=== PATIENT | male | born 1935 | race Caucasian/White ===

== ENCOUNTER 2017-09-23 04:28 | Observation (INO) | payer OTHER ==
[2017-09-23] MEDS ORDERED: SODIUM CHLORIDE 0.9% 1000 ML INFUS.BAG IV ONE (04:41)
[2017-09-23 04:42] VITALS: BMI 29.2
--- NOTE | 2017-09-23 05:19 | PDOC ---
Attending Attestation - Resident Resident Name: Aidan Lea - ED Attending Attestation I have performed the following: I have examined & evaluated the patient, The case was reviewed & discussed with the resident, I agree w/resident's findings & plan - HPI HPI: 09/23/17 05:31 Pt comes with hypoglycemia. He also has hypothermia in the ER. - Physicial Exam PE: 09/23/17 06:58 Agree with resident exam - Medical Decision Making 09/23/17 06:58 Lbas pending. Consider admitting patient, as he lives on his own and he is weak , and blood sugar is low.
[2017-09-23 05:26] LABS: BASO % 0.2 % (0-2.0); EOS % 0.8 % (0-4.5); HEMATOCRIT 38.1 % (35.4-49); HEMOGLOBIN 13.1 GM/dL (11.7-16.9); LYMPH % 16.2 % (8-40); MCH 32.7 pg (25.7-33.7); MCHC 34.5 g/dl (32.0-35.9); MEAN CELL VOLUME 94.9 fl (80-96); MEAN PLT VOLUME 9.1 fl (7.5-11.1); MONO % 5.3 % (3.8-10.2); NEUT % 77.5 % (42.8-82.8); PLATELET COUNT 110 K/MM3 (134-434); RBC 4.02 M/mm3 (4.00-5.60); RDW 13.3 % (11.9-15.9); WHITE BLOOD COUNT 5.3 K/mm3 (4.0-10.0)
--- NOTE | 2017-09-23 05:30 | PDOC ---
History of Present Illness - General Chief Complaint: Blood Sugar Problem Stated Complaint: SUGAR PROBLEM Time Seen by Provider: 09/23/17 04:40 History Source: Patient, EMS Exam Limitations: No Limitations - History of Present Illness Initial Comments: 09/23/17 05:23 The patient is an 82M with a PMH of DM, HTN, HLD, hemorrhoids, CAD s/p 5 cardiac stents, pacemaker, who presents to the ER after having a near syncopal episode. The patient states that he was sleeping, got up to use the restroom, and on his return from the restroom, felt lightheaded. He also states he felt chest tightness, SOB, and nausea. He states that he laid down and the lightheadedness did not go away. He denies any current symptoms except for some mild nausea and lightheadedness. Past History - Past Medical History Allergies/Adverse Reactions: Allergies Allergy/AdvReac Type Severity Reaction Status Date / Time No Known Drug Allergies Allergy Verified 09/23/17 04:43 SEAFOOD Allergy Swelling Uncoded 09/23/17 04:43 Home Medications: Ambulatory Orders Meclizine HCl 25 mg PO PRN 07/09/16 Ranolazine [Ranexa -] 500 mg PO BID 07/09/16 Simvastatin [Zocor -] 10 mg PO HS 07/09/16 Tamsulosin HCl [Flomax] 0.4 mg PO DAILY 07/09/16 Insulin Detemir [Levemir Flextouch] 20 unit SQ BID #1 vial 07/13/16 Pantoprazole Sodium [Protonix -] 40 mg PO BID #60 tablet.ec 07/13/16 Anemia: No Asthma: No Cancer: No Cardiac Disorders: Yes (afib,ppm,cad) CVA: No COPD: No CHF: No DVT: No Dementia: No Diabetes: Yes (IDDM) GI Disorders: No Disorders: No HTN: Yes Hypercholesterolemia: Yes Liver Disease: No Seizures: No Thyroid Disease: No - Surgical History Abdominal Surgery: No Appendectomy: Yes Cardiac Surgery: Yes (PACEMAKER,CARDIAC STENTS X 5) Cholecystectomy: Yes Lung Surgery: No Orthopedic Surgery: Yes (spinal fusion) - Immunization History Immunization Up to Date: Yes - Suicide/Smoking/Psychosocial Hx Smoking Status: Yes Smoking History: Former smoker Have you smoked in the past 12 months: No Number of Cigarettes Smoked Daily: 0 If you are a former smoker, when did you quit?: 28 years ago Information on smoking cessation initiated: No Hx Alcohol Use: No Drug/Substance Use Hx: No Substance Use Type: None Hx Substance Use Treatment: No Review of Systems - Review of Systems Able to Perform ROS?: Yes Comments:: 09/23/17 05:31 GENERAL/CONSTITUTIONAL: No fever or chills. No weakness. HEAD, EYES, EARS, NOSE AND THROAT: No change in vision. No ear pain or discharge. No sore throat. CARDIOVASCULAR: Positive for chest tightness. No palpitations or lightheadedness. RESPIRATORY: Positive for shortness of breath. No cough, wheezing, or hemoptysis. GASTROINTESTINAL: Positive for nausea. No vomiting, diarrhea, constipation, or abdominal pain. GENITOURINARY: No dysuria, frequency, hematuria, or change in urination. MUSCULOSKELETAL: No joint or muscle swelling or pain. No neck or back pain. SKIN: No rash or lesions. NEUROLOGIC: Positive for lightheadedness and near syncope. No headache, numbness , tingling, weakness, loss of consciousness, or change in strength/sensation. ENDOCRINE: No increased thirst. No abnormal weight change. HEMATOLOGIC/LYMPHATIC: No anemia, easy bleeding, or history of blood clots. ALLERGIC/IMMUNOLOGIC: No hives or skin allergy. Is the patient limited [place] proficient: No *Physical Exam - Vital Signs Last Vital Signs Temp Pulse Resp BP Pulse Ox 96.6 F L 61 16 142/62 99 09/23/17 04:30 09/23/17 04:30 09/23/17 04:30 09/23/17 04:30 09/23/17 04:30 - Physical Exam Comments: 09/23/17 05:33 GENERAL: Well developed, well nourished. Awake and alert. No acute distress. Pt is slightly diaphoretic and cool to touch. HEENT: Normocephalic, atraumatic. Hearing grossly normal. Moist mucous membranes. PERRLA, EOMI. No conjunctival pallor. Sclera are non-icteric. NECK: Supple. Full ROM. No JVD. CARDIOVASCULAR: Regular rate and rhythm. No murmurs, rubs, or gallops. PULMONARY: No evidence of respiratory distress. Lungs clear to auscultation bilaterally. No wheezing, rales or rhonchi. ABDOMINAL: Soft. Non-tender. Non-distended. No rebound or guarding. MUSCULOSKELETAL: Normal range of motion at all joints. No bony deformities or tenderness. EXTREMITIES: No cyanosis. No clubbing. No edema. No calf tenderness. SKIN: Warm and dry. Normal capillary refill. No rashes. No jaundice. NEUROLOGICAL: Alert, awake, appropriate. Cranial nerves 2-12 intact. Normal speech. PSYCHIATRIC: Cooperative. Good eye contact. Appropriate mood and affect. Heart Score/ECG Review #1 ECG reviewed & interpreted by me at: 05:34 General ECG Interpretation: Sinus Rhythm, Normal Rate, Normal Intervals, No acute ischemic changes Compared to previous ECG there are: Other (QRS widening has increased) 09/23/17 05:34 Rate 60 UT 336 QRS 148 QTc 522 No acute ischemic changes noted. RBBB unchanged. LAFB unchanged. QRS widened ocmpared to previous EKG, 148 from 122. ED Treatment Course - LABORATORY CBC & Chemistry Diagram: 09/23/17 05:13 09/23/17 05:13 - RADIOLOGY Radiology Studies Ordered: Category Date Time Status CHEST X-RAY PORTABLE* [RAD] Stat Radiology 09/23/17 04:53 Ordered Medical Decision Making - Medical Decision Making 09/23/17 05:35 The patient is an 82M with an extensive PMH who presents to the ER after a near syncopal episode. Incoming vitals notable for BGL of 51 and rectal temp of 92.5. Actively rewarming patient. Septic protocol followed. Pending labs/imaging. 09/23/17 07:03 Pt signed out to Dr. Maher, day team. *DC/Admit/Observation/Transfer - Discharge Dispostion Condition at time of disposition: Fair - Referrals - Patient Instructions - Post Discharge Activity
[2017-09-23 05:54] LABS: INR 0.97 (0.82-1.09)
[2017-09-23 05:57] LABS: ACTIVATED PTT 27.2 SECONDS (26.9-34.4)
[2017-09-23 06:04] LABS: ALBUMIN 3.3 g/dl (3.4-5.0); ANION GAP 7 (8-16); BILIRUBIN,TOTAL 0.7 mg/dL (0.2-1.0); BLOOD UREA NITROGEN 19 mg/dL (7-18); CALCIUM 7.8 mg/dL (8.5-10.1); CHLORIDE 109 mmol/L (98-107); CO2 25 mmol/L (21-32); CREATININE 1.1 mg/dL (0.7-1.3); SGPT/ALT 16 U/L (12-78); SODIUM 141 mmol/L (136-145); TOT PROT 6.1 g/dl (6.4-8.2)
[2017-09-23 06:06] LABS: ALK PHOS 58 U/L (45-117)
[2017-09-23 06:07] LABS: POTASSIUM 3.7 mmol/L (3.5-5.1)
[2017-09-23 06:08] LABS: GLUCOSE,RANDOM 42 mg/dL (74-106); SGOT/AST 18 U/L (15-37)
--- NOTE | 2017-09-23 10:06 | PDOC ---
*Physical Exam - Vital Signs Last Vital Signs Temp Pulse Resp BP Pulse Ox 95.8 F L 60 18 130/58 99 09/23/17 09:01 09/23/17 09:01 09/23/17 09:01 09/23/17 09:01 09/23/17 09:01 ED Treatment Course - LABORATORY CBC & Chemistry Diagram: 09/23/17 05:13 09/23/17 05:13 - ADDITIONAL ORDERS Additional order review: Laboratory Results 09/23/17 09/23/17 09/23/17 08:00 07:29 05:13 PT with INR INR PTT (Actin FS) Sodium Potassium Chloride Carbon Dioxide Anion Gap BUN Creatinine Creat Clearance w eGFR POC Glucometer [phone] Random Glucose Lactic Acid 1.8 Calcium Total Bilirubin AST ALT Alkaline Phosphatase Creatine Kinase Troponin I Total Protein Albumin TSH 0.97 Blood Type Antibody Screen 09/23/17 09/23/17 09/23/17 05:13 05:13 04:55 PT with INR 11.00 INR 0.97 PTT (Actin FS) 27.2 Sodium 141 Potassium 3.7 Chloride 109 H Carbon Dioxide 25 Anion Gap 7 L BUN 19 H D Creatinine 1.1 D Creat Clearance w eGFR > 60 POC Glucometer Random Glucose 42 L* D Lactic Acid Calcium 7.8 L Total Bilirubin 0.7 D AST 18 D ALT 16 D Alkaline Phosphatase 58 Creatine Kinase 42 Troponin I < 0.02 Total Protein 6.1 L Albumin 3.3 L D TSH Blood Type O POSITIVE Antibody Screen Negative 09/23/17 09/23/17 07:29 05:13 RBC 4.02 D MCV 94.9 MCHC 34.5 RDW 13.3 MPV 9.1 Neutrophils % 77.5 Lymphocytes % 16.2 D Monocytes % 5.3 Eosinophils % 0.8 D Basophils % 0.2 POC Glucometer 124.69005 - Medications Given in the ED: ED Medications Discontinued Medications Generic Name Dose Route Start Last Admin Trade Name Freq PRN Reason Stop Dose Admin Sodium Chloride 1,000 ml 09/23/17 04:41 09/23/17 05:37 Normal Saline - IV 09/23/17 04:42 1,000 ml ONCE ONE Administration Medical Decision Making - Medical Decision Making 09/23/17 10:04 Patient admitted for hypoglycemia and hypothermia. Will give us urine on his own. Had meal of soup with croutons last night, no recent change in meds, is sure of doses. *DC/Admit/Observation/Transfer Diagnosis at time of Disposition: Hypoglycemia, Hypothermia not due to cold exposure - Discharge Dispostion Condition at time of disposition: Fair Admit: Yes - Referrals Referrals: Mateo Ohara MD [Primary Care Provider] - - Patient Instructions - Post Discharge Activity
[2017-09-23 11:17] LABS: URINE APPEARANCE CLEAR; URINE BILIRUBIN NEGATIVE (NEGATIVE); URINE BLOOD NEGATIVE (NEGATIVE); URINE COLOR YELLOW; URINE GLUCOSE (UA) 2+ (NEGATIVE); URINE KETONE NEGATIVE (NEGATIVE); URINE LEUK ESTERASE NEGATIVE (NEGATIVE); URINE NITRITE NEGATIVE (NEGATIVE); URINE PROTEIN NEGATIVE (NEGATIVE)
--- NOTE | 2017-09-23 11:19 | HP ---
Admitting History and Physical - Primary Care Physician PCP: Mateo Ohara - Admission Chief Complaint: dizziness History of Present Illness: This is an 82 year old male with pmhx of IDDM, HTN, HLD, and CAD s/p multiple cardiac caths and stents x3 (last 2013 at [facility]), GIB; duodunal ulcer with hemorrhage (2015) presented to the ED with hypothermia. The patient states he was in relatively normal state of health last night, ate some soup and coffee, not feeling the most hungry, read and went to sleep. He woke up around 1am to urinate and when he returned from the bathroom he started to feel dizzy. He normally would take a meclizine but he felt too unstable to get up. At this time he started to sweat and was clammy, he laid down but the dizziness worsened and he called his son and activated the alert necklace around his neck. He noted blurry vision and being lucid with his son, but doesn't recall the conversation. EMS noted pt temperature to be 92.5 with BGM of 51. Currently, denies sob, chest pain, abd pain, nausea, vomiting, fever, chills, cough. History Source: Patient, Medical Record Limitations to Obtaining History: No Limitations - Past Medical History Cardiovascular: Yes: CAD (s/p stents), HTN, Hyperlipdemia, [place] Gastrointestinal: Yes: GI Bleed, Hemorrhoids Endocrine: Yes: Diabetes Mellitus - Past Surgical History Past Surgical History: Yes: Appendectomy, Cholecystectomy, Stent, Upper Endoscopy - Smoking History Smoking history: Former smoker Have you smoked in the past 12 months: No Aproximately how many cigarettes per day: 0 If you are a former smoker, when did you quit?: 28 years ago - Alcohol/Substance Use Hx Alcohol Use: No - Social History Usual Living Arrangement: Yes: Alone ADL: Independent Home Medications - Allergies Allergies/Adverse Reactions: Allergies Allergy/AdvReac Type Severity Reaction Status Date / Time No Known Drug Allergies Allergy Verified 09/23/17 04:43 SEAFOOD Allergy Swelling Uncoded 09/23/17 04:43 - Home Medications Home Medications: Ambulatory Orders Meclizine HCl 25 mg PO TID PRN 07/09/16 Ranolazine [Ranexa -] 500 mg PO BID 07/09/16 Tamsulosin HCl [Flomax] 0.4 mg PO DAILY 07/09/16 Pantoprazole Sodium [Protonix -] 40 mg PO BID #60 tablet.ec 07/13/16 Aspirin [ASA -] 81 mg PO DAILY 09/23/17 Atorvastatin Ca [Lipitor] 10 mg PO HS 09/23/17 Insulin Glargine,Hum.rec.anlog [Toujeo Solostar] 50 unit SQ .PCDIN 09/23/17 Linagliptin [Tradjenta] 5 mg PO ACDIN 09/23/17 Losartan Potassium [Cozaar] 100 mg PO DAILY 09/23/17 Review of Systems - Review of Systems Constitutional: reports: Diaphoresis, Weakness Eyes: reports: Blurred Vision HENT: reports: No Symptoms Neck: reports: No Symptoms Cardiovascular: reports: No Symptoms Respiratory: reports: No Symptoms Gastrointestinal: reports: No Symptoms Genitourinary: reports: No Symptoms Musculoskeletal: reports: No Symptoms Integumentary: reports: No Symptoms Neurological: reports: Dizziness Endocrine: reports: No Symptoms Hematology/Lymphatic: reports: No Symptoms Psychiatric: reports: No Symptoms Physical Examination Vital Signs: Vital Signs Temperature 95.8 F L 09/23/17 09:01 Pulse Rate 60 09/23/17 09:01 Respiratory Rate 18 09/23/17 09:01 Blood Pressure 130/58 09/23/17 09:01 O2 Sat by Pulse Oximetry (%) 99 09/23/17 09:01 Constitutional: Yes: No Distress Eyes: Yes: Conjunctiva Clear HENT: Yes: Atraumatic Neck: Yes: Supple Cardiovascular: Yes: Regular Rate and Rhythm, S1, S2 Respiratory: Yes: Regular, CTA Bilaterally Gastrointestinal: Yes: Normal Bowel Sounds, Soft, Hernia (reproducible umbilical ) Renal/: Yes: WNL Musculoskeletal: Yes: WNL Extremities: Yes: WNL Edema: No Integumentary: Yes: Other (warm) Neurological: Yes: Alert, Oriented, Cran Nerves II-XII Intact Psychiatric: Yes: Alert, Oriented Labs: CBC, BMP 09/23/17 05:13 09/23/17 05:13 Imaging - Results Chest X-ray: Report Reviewed, Image Reviewed Problem List - Problems (1) Hypoglycemia Code(s): E16.2 - HYPOGLYCEMIA, UNSPECIFIED (2) Hypothermia not due to cold exposure Code(s): R68.0 - HYPOTHERMIA, NOT ASSOCIATED W LOW ENVIRONMENTAL TEMPERATURE (3) CAD (coronary artery disease) Code(s): I25.10 - ATHSCL HEART DISEASE OF [place] CORONARY ARTERY W/O ANG PCTRS (4) Diabetes Code(s): E11.9 - TYPE 2 DIABETES MELLITUS WITHOUT COMPLICATIONS Qualifiers: Diabetes mellitus type: type 2 (5) Hyperlipidemia Code(s): E78.5 - HYPERLIPIDEMIA, UNSPECIFIED (6) Hypertension Code(s): I10 - ESSENTIAL (PRIMARY) HYPERTENSION Assessment/Plan Assessment: 82 year old male presented with dizziness, hypothermia, hypoglycemia Plan: 1. Hypothermia - Unclear etiology - Possibly due to hypoglycemia - Improved with kenny hugger - Septic work up, cxr, ua negative - EKG unchanged - TSH wnl 2. DM II, hypoglycemia - Hypoglycemia resolved - Pt home insulin regime not on formulary - Give levemir 20mg BID - Dr. Ohara to see pt 3. HTN - Losartan 100mg 4. 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 Thrombocytopenia - Trend has been low in 2016 visits - Unclear etiology, however does take protonix BID, would recommend stopping or decreasing dose, also considering stopping meclizine for same reason 6. BPH - Flomax 7. DVT - SCDS, ambulate Visit type - Emergency Visit Emergency Visit: Yes ED Registration Date: 09/23/17 Care time: The patient presented to the Emergency Department on the above date and was hospitalized for further evaluation of their emergent condition. - New Patient This patient is new to me today: Yes Date on this admission: 09/23/17 - Critical Care Critical Care patient: Yes Total Critical Care Time (in minutes): 35 Critical Care Statement: The care of this patient involved high complexity decision making to prevent further life threatening deterioration of the patient 's condition and/or to evaluate & treat vital organ system(s) failure or risk of failure. Hospitalist Screening - Colonoscopy Questionnaire Colonoscopy Questionnaire: Colonoscopy Questionnaire - Patient: 50 - 75 years old and never had a screening colonoscopy: No History of colon or rectal polyps, or CA: No History of IBD, Crohn's disease or UC: No History of abdominal radiation therapy as a child: No - Relative: 1 with colon or rectal CA, or polyps at age 60 or younger: No Colon or rectal CA diagnosed at age 45 or younger: No Multiple relatives with colon or rectal CA: No - Outcome: Screening Result: Negative Screen
[2017-09-23] MEDS ORDERED: INSULIN (NOVOLOG) ASPART 100 UNITS/ML 10ML VIAL ONE (17:51)
[2017-09-23] MEDS: INSULIN SLIDING SCALE (NOVOLOG) 1 VIAL SQ SCH ×2 (17:53→21:48)
[2017-09-23] MEDS: INSULIN DETEMIR 100 UNITS/ML MDV SQ SCH (21:49)
[2017-09-23] MEDS: ATORVASTATIN CA 10 MG TABLET (FP) PO SCH (21:50)
[2017-09-23] MEDS: RANOLAZINE E.R. 500 MG TABLET (FP) PO SCH (21:50)
[2017-09-23] MEDS ORDERED: ATORVASTATIN CA 10 MG TABLET (FP) PO SCH (22:00)
[2017-09-23] MEDS ORDERED: INSULIN DETEMIR 100 UNITS/ML MDV SQ SCH (22:00)
[2017-09-24] MEDS: ACETAMINOPHEN 325 MG TABLET (FP) PO PRN ×3 (00:13→21:01)
[2017-09-24] MEDS: INSULIN DETEMIR 100 UNITS/ML MDV SQ SCH (07:22)
[2017-09-24] MEDS: INSULIN SLIDING SCALE (NOVOLOG) 1 VIAL SQ SCH ×4 (07:23→21:05)
[2017-09-24 07:36] LABS: BASO % 0.7 % (0-2.0); HEMATOCRIT 38.5 % (35.4-49); HEMOGLOBIN 13.1 GM/dL (11.7-16.9); LYMPH % 26.1 % (8-40); MCH 32.2 pg (25.7-33.7); MEAN CELL VOLUME 94.6 fl (80-96); MONO % 7.9 % (3.8-10.2); NEUT % 61.3 % (42.8-82.8); PLATELET COUNT 126 K/MM3 (134-434); RBC 4.07 M/mm3 (4.00-5.60); RDW 13.1 % (11.9-15.9); WHITE BLOOD COUNT 5.6 K/mm3 (4.0-10.0)
[2017-09-24 07:57] LABS: ANION GAP 5 (8-16); BLOOD UREA NITROGEN 18 mg/dL (7-18); CALCIUM 8.1 mg/dL (8.5-10.1); CHLORIDE 106 mmol/L (98-107); CO2 28 mmol/L (21-32); CREATININE 1.1 mg/dL (0.7-1.3); GLUCOSE,RANDOM 84 mg/dL (74-106); POTASSIUM 5.3 mmol/L (3.5-5.1); SODIUM 139 mmol/L (136-145)
[2017-09-24] MEDS: TAMSULOSIN HCL 0.4 MG CAP.ER.24H (FP) PO SCH (10:03)
[2017-09-24] MEDS: LOSARTAN POTASSIUM 50 MG TABLET (FP) PO SCH (10:03)
[2017-09-24] MEDS: RANOLAZINE E.R. 500 MG TABLET (FP) PO SCH ×2 (10:03→21:01)
--- NOTE | 2017-09-24 10:43 | PN ---
Progress Note, Physician Chief Complaint: patient came in for dizziness,hypoglycemia today BGM in 40"s in morning History of Present Illness: currently he is not dizzy, no CP ,no shortness of breath no blurry vision - Current Medication List Current Medications: Active Medications Acetaminophen (Tylenol -) 650 mg PO Q6H PRN PRN Reason: PAIN LEVEL 4 - 6 Last Admin: 09/24/17 00:13 Dose: 650 mg Atorvastatin Calcium (Lipitor -) 10 mg PO HS [facility] Last Admin: 09/23/17 21:50 Dose: 10 mg Insulin Aspart (Novolog Vial Sliding Scale -) 1 vial SQ ACHS [facility] PRN Reason: Protocol Last Admin: 09/24/17 07:23 Dose: Not Given Insulin Detemir (Levemir Vial) 20 units SQ BID@0700,2200 [facility] Last Admin: 09/24/17 07:22 Dose: Not Given Losartan Potassium (Cozaar -) 100 mg PO DAILY [facility] Last Admin: 09/24/17 10:03 Dose: 100 mg Ranolazine (Ranexa -) 500 mg PO BID [facility] Last Admin: 09/24/17 10:03 Dose: 500 mg Tamsulosin HCl (Flomax -) 0.4 mg PO DAILY [facility] Last Admin: 09/24/17 10:03 Dose: 0.4 mg - Objective Vital Signs: Vital Signs Temperature 97.8 F 09/24/17 06:09 Pulse Rate 64 09/24/17 06:09 Respiratory Rate 20 09/24/17 06:09 Blood Pressure 107/48 09/24/17 06:09 O2 Sat by Pulse Oximetry (%) 97 09/24/17 05:00 Constitutional: Yes: Calm Neck: Yes: Trachea Midline Cardiovascular: Yes: Regular Rate and Rhythm, S1, S2 Respiratory: Yes: CTA Bilaterally Gastrointestinal: Yes: Normal Bowel Sounds, Soft Edema: No Neurological: Yes: Alert, Oriented Labs: CBC, BMP 09/24/17 06:30 09/24/17 06:30 INR, PTT INR 0.97 (0.82-1.09) 09/23/17 05:13 Problem List - Problems (1) Hypoglycemia Assessment/Plan: insulin held sliding sclae for now will decrease the dose of levemir endocrine consult Code(s): E16.2 - HYPOGLYCEMIA, UNSPECIFIED (2) BPH (benign prostatic hyperplasia) Assessment/Plan: tamsulosin Code(s): N40.0 - BENIGN PROSTATIC HYPERPLASIA WITHOUT LOWER URINRY TRACT SYMP (3) CAD (coronary artery disease) Assessment/Plan: lipitor ranexa aspirin Code(s): I25.10 - ATHSCL HEART DISEASE OF [place] CORONARY ARTERY W/O ANG PCTRS (4) Diabetes Assessment/Plan: check [id number] levemir held for now Code(s): E11.9 - TYPE 2 DIABETES MELLITUS WITHOUT COMPLICATIONS Qualifiers: Diabetes mellitus type: type 2 (5) Hyperlipidemia Assessment/Plan: statin lipid panel Code(s): E78.5 - HYPERLIPIDEMIA, UNSPECIFIED (6) Thrombocytopenia Assessment/Plan: trend platelet Code(s): D69.6 - THROMBOCYTOPENIA, UNSPECIFIED
[2017-09-24] MEDS ORDERED: INSULIN (NOVOLOG) ASPART 100 UNITS/ML 10ML VIAL ONE ×2 (11:26→21:01)
[2017-09-24] MEDS: ATORVASTATIN CA 10 MG TABLET (FP) PO SCH (21:01)
--- NOTE | 2017-09-24 22:52 | CONSULT ---
Consult Consult Specialty:: endocrine Referred by:: chin Reason for Consultation:: diabetes mellitus/ hypoglycemia - History of Present Illness Chief Complaint: low blood sugar History of Present Illness: 82 year old male with pmhx of IDDM, HTN, HLD, and CAD s/p multiple cardiac caths and stents x3 (last 2013 at [facility]), GIB; duodunal ulcer with hemorrhage (2015) presented to the ED with hypothermia. The patient states he was in relatively normal state of health last night, ate some soup and coffee, not feeling the most hungry, read and went to sleep. He woke up around 1am to urinate and when he returned from the bathroom he started to feel dizzy. was unable to sit up in bed and fell down in bed called ems for help;brought to [facility] for help found to have blood sugar below 50mg/dl. with d50 his sugar improved and he felt better. - History Source History Provided By: Patient - Past Medical History Cardio/Vascular: Yes: CAD (s/p stents), HTN, Hyperlipdemia, [place] Gastrointestinal: Yes: GI Bleed, Hemorrhoids Endocrine: Yes: Diabetes Mellitus - Past Surgical History Past Surgical History: Yes: Appendectomy, Cholecystectomy, Stent, Upper Endoscopy - Alcohol/Substance Use Hx Alcohol Use: No - Smoking History Smoking history: Former smoker Have you smoked in the past 12 months: No Aproximately how many cigarettes per day: 0 If you are a former smoker, when did you quit?: 28 years ago - Social History ADL: Independent Home Medications - Allergies Allergies/Adverse Reactions: Allergies Allergy/AdvReac Type Severity Reaction Status Date / Time No Known Drug Allergies Allergy Verified 09/23/17 04:43 SEAFOOD Allergy Severe Swelling Uncoded 09/23/17 17:57 - Home Medications Home Medications: Ambulatory Orders Meclizine HCl 25 mg PO TID PRN 07/09/16 Ranolazine [Ranexa -] 500 mg PO BID 07/09/16 Tamsulosin HCl [Flomax] 0.4 mg PO DAILY 07/09/16 Pantoprazole Sodium [Protonix -] 40 mg PO BID #60 tablet.ec 07/13/16 Aspirin [ASA -] 81 mg PO DAILY 09/23/17 Atorvastatin Ca [Lipitor] 10 mg PO HS 09/23/17 Insulin Glargine,Hum.rec.anlog [Toujeo Solostar] 50 unit SQ .PCDIN 09/23/17 Linagliptin [Tradjenta] 5 mg PO ACDIN 09/23/17 Losartan Potassium [Cozaar] 100 mg PO DAILY 09/23/17 Review of Systems - Review of Systems Constitutional: reports: No Symptoms Eyes: reports: No Symptoms HENT: reports: No Symptoms Neck: reports: No Symptoms Cardiovascular: reports: No Symptoms Respiratory: reports: Exercise Intolerance Gastrointestinal: reports: No Symptoms Genitourinary: reports: No Symptoms, Testicular Pain Musculoskeletal: reports: No Symptoms Integumentary: reports: No Symptoms Neurological: reports: Weakness Endocrine: reports: Unexplained Weight Gain Physical Exam Vital Signs: Vital Signs Temperature 98.0 F 09/24/17 22:00 Pulse Rate 62 09/24/17 22:00 Respiratory Rate 18 09/24/17 22:00 Blood Pressure 140/72 09/24/17 22:00 O2 Sat by Pulse Oximetry (%) 97 09/24/17 21:00 Constitutional: Yes: Calm Eyes: Yes: EOM Intact HENT: Yes: Normocephalic Neck: Yes: Trachea Midline Cardiovascular: Yes: Regular Rate and Rhythm Respiratory: Yes: CTA Bilaterally Gastrointestinal: Yes: Normal Bowel Sounds ...Rectal Exam: Yes: Deferred Renal/: Yes: WNL Breast(s): Yes: WNL Musculoskeletal: Yes: WNL Extremities: Yes: WNL Neurological: Yes: Alert, Oriented Labs: CBC, BMP 09/24/17 06:30 09/24/17 06:30 Problem List - Problems (1) 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 Code(s): E11.311 - TYPE 2 DIABETES W UNSP DIABETIC RETINOPATHY W MACULAR EDEMA (2) Hypoglycemia Code(s): E16.2 - HYPOGLYCEMIA, UNSPECIFIED (3) BPH (benign prostatic hyperplasia) Code(s): N40.0 - BENIGN PROSTATIC HYPERPLASIA WITHOUT LOWER URINRY TRACT SYMP (4) CAD (coronary artery disease) Code(s): I25.10 - ATHSCL HEART DISEASE OF [place] CORONARY ARTERY W/O ANG PCTRS Assessment/Plan Current Active Problems Hypoglycemia (Acute) Hypothermia not due to cold exposure (Acute) Thrombocytopenia (Acute) diabetes mellitus ckd htn ashd cad Abnormal Lab Results 09/24/17 09/24/17 09/24/17 06:30 06:30 10:50 Plt Count 126 L Potassium 5.3 H D Anion Gap 5 L Hemoglobin A1c % 8.3 H D Calcium 8.1 L Laboratory Results - last 24 hr 09/24/17 09/24/17 09/24/17 05:45 06:30 06:30 WBC 5.6 RBC 4.07 Hgb 13.1 Hct 38.5 MCV 94.6 MCH 32.2 MCHC 34.0 RDW 13.1 Plt Count 126 L MPV 9.0 Neutrophils % 61.3 D Lymphocytes % 26.1 D Monocytes % 7.9 Eosinophils % 4.0 D Basophils % 0.7 D Sodium 139 Potassium 5.3 H D Chloride 106 Carbon Dioxide 28 Anion Gap 5 L BUN 18 Creatinine 1.1 POC Glucometer 49 Random Glucose 84 D Hemoglobin A1c % Calcium 8.1 L 09/24/17 09/24/17 09/24/17 10:50 11:22 17:36 WBC RBC Hgb Hct MCV MCH MCHC RDW Plt Count MPV Neutrophils % Lymphocytes % Monocytes % Eosinophils % Basophils % Sodium Potassium Chloride Carbon Dioxide Anion Gap BUN Creatinine POC Glucometer 92 189 Random Glucose Hemoglobin A1c % 8.3 H D Calcium 09/24/17 21:05 WBC RBC Hgb Hct MCV MCH MCHC RDW Plt Count MPV Neutrophils % Lymphocytes % Monocytes % Eosinophils % Basophils % Sodium Potassium Chloride Carbon Dioxide Anion Gap BUN Creatinine POC Glucometer 231 Random Glucose Hemoglobin A1c % Calcium Laboratory Tests 09/24/17 09/24/17 09/24/17 05:45 11:22 17:36 POC Glucometer 49 92 189 09/24/17 21:05 POC Glucometer 231 plan: bgm ac hs novolog insullin levemir 20 units am follow up in offic 5-7 days nutrition consult
[2017-09-25] MEDS: INSULIN SLIDING SCALE (NOVOLOG) 1 VIAL SQ SCH (06:14)
[2017-09-25] MEDS ORDERED: INSULIN DETEMIR 100 UNITS/ML MDV SQ SCH ×2 (07:00)
[2017-09-25 07:54] LABS: BASO % 0.9 % (0-2.0); EOS % 5.1 % (0-4.5); HEMOGLOBIN 13.2 GM/dL (11.7-16.9); LYMPH % 28.8 % (8-40); MCH 31.6 pg (25.7-33.7); MCHC 33.8 g/dl (32.0-35.9); MEAN CELL VOLUME 93.5 fl (80-96); MEAN PLT VOLUME 8.7 fl (7.5-11.1); MONO % 9.4 % (3.8-10.2); NEUT % 55.8 % (42.8-82.8); PLATELET COUNT 129 K/MM3 (134-434); RBC 4.17 M/mm3 (4.00-5.60); WHITE BLOOD COUNT 5.1 K/mm3 (4.0-10.0)
[2017-09-25 08:26] LABS: ALBUMIN 3.2 g/dl (3.4-5.0); ALK PHOS 56 U/L (45-117); ANION GAP 6 (8-16); BILIRUBIN,TOTAL 1.3 mg/dL (0.2-1.0); BLOOD UREA NITROGEN 25 mg/dL (7-18); CALCIUM 8.4 mg/dL (8.5-10.1); CHLORIDE 105 mmol/L (98-107); CHOLESTEROL 118 mg/dL (50-200); CO2 27 mmol/L (21-32); CREATININE 1.3 mg/dL (0.7-1.3); GLUCOSE,RANDOM 119 mg/dL (74-106); POTASSIUM 5.1 mmol/L (3.5-5.1); SGOT/AST 11 U/L (15-37); SGPT/ALT 14 U/L (12-78); SODIUM 138 mmol/L (136-145); TRIGLYCERIDES 113 mg/dL (35-160)
[2017-09-25 08:27] LABS: HDL CHOLESTEROL 38 mg/dL (40-60); LDL CHOLESTEROL (ONLY SJRH) 69 mg/dL (5-100)
--- NOTE | 2017-09-25 08:36 | DS ---
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 The patient states he was in relatively normal state of health last night, ate some soup and coffee, not feeling the most hungry, read and went to sleep. He woke up around 1am to urinate and when he returned from the bathroom he started to feel dizzy. He normally would take a meclizine but he felt too unstable to get up. At this time he started to sweat and was clammy, he laid down but the dizziness worsened and he called his son and activated the alert necklace around his neck. He noted blurry vision and being lucid with his son, but doesn't recall the conversation. EMS noted pt temperature to be 92.5 with BGM of 51. Currently, denies sob, chest pain, abd pain, nausea, vomiting, fever, chills, cough. History Source: Patient, Medical Record Limitations to Obtaining History: No Limitations - Past Medical History Cardiovascular: Yes: CAD (s/p stents), HTN, Hyperlipdemia, [place] Gastrointestinal: Yes: GI Bleed, Hemorrhoids Endocrine: Yes: Diabetes Mellitus - Past Surgical History Past Surgical History: Yes: Appendectomy, Cholecystectomy, Stent, Upper Endoscopy - Smoking History Smoking history: Former smoker - Problems (1) Hypoglycemia Assessment/Plan: insulin on levemir 25 sliding scale for now endocrine consult Code(s): E16.2 - HYPOGLYCEMIA, UNSPECIFIED (2) BPH (benign prostatic hyperplasia) Assessment/Plan: tamsulosin Code(s): N40.0 - BENIGN PROSTATIC HYPERPLASIA WITHOUT LOWER URINRY TRACT SYMP (3) CAD (coronary artery disease) Assessment/Plan: lipitor ranexa aspirin Code(s): I25.10 - ATHSCL HEART DISEASE OF [place] CORONARY ARTERY W/O ANG PCTRS (4) Diabetes Assessment/Plan: check hgba1c levemir held for now Code(s): E11.9 - TYPE 2 DIABETES MELLITUS WITHOUT COMPLICATIONS Qualifiers: Diabetes mellitus type: type 2 (5) Hyperlipidemia Assessment/Plan: statin lipid panel Code(s): E78.5 - HYPERLIPIDEMIA, UNSPECIFIED (6) Thrombocytopenia Assessment/Plan: trend platelet Code(s): D69.6 - THROMBOCYTOPENIA, UNSPECIFIED Condition: Stable - Instructions Diet, Activity, Other Instructions: FOLLOW INSULIN INSTRUCTION DIRECTED BY DR SOTO INSTRUCTIONS REPEAT LABS IN OFFICE NEXT WEEK Referrals: Mateo Soto MD [Primary Care Provider] - 1 Week Disposition: HOME - Home Medications Comprehensive Discharge Medication List: Ambulatory Orders Meclizine HCl 25 mg PO TID PRN 07/09/16 Ranolazine [Ranexa -] 500 mg PO BID 07/09/16 Tamsulosin HCl [Flomax] 0.4 mg PO DAILY 07/09/16 Pantoprazole Sodium [Protonix -] 40 mg PO BID #60 tablet.ec 07/13/16 Aspirin [ASA -] 81 mg PO DAILY 09/23/17 Atorvastatin Ca [Lipitor] 10 mg PO HS 09/23/17 Insulin Glargine,Hum.rec.anlog [Toujeo Solostar] 25 unit SQ .PCDIN 09/23/17 Losartan Potassium [Cozaar] 100 mg PO DAILY 09/23/17
[2017-09-25] MEDS: TAMSULOSIN HCL 0.4 MG CAP.ER.24H (FP) PO SCH (09:09)
[2017-09-25] MEDS: LOSARTAN POTASSIUM 50 MG TABLET (FP) PO SCH (09:10)
[2017-09-25] MEDS: RANOLAZINE E.R. 500 MG TABLET (FP) PO SCH (09:10)
[2017-09-25 10:59] VITALS: BP 123/60; PULSE 63; TEMP 97.5
== END 2017-09-25 10:24 | disposition home or self-care (01) ==
LOC: JER 04:28 → JERBED 10:06 → INTOOBSV 10:06 → UNDOADMOB 10:06 → JERBED 11:38 → J8W 12:28
PROVIDERS: ADMIT Internal Medicine; ATTEND Family Medicine
PROC: 3E013VG Introduction of Insulin into Subcutaneous Tissue, Percutaneous Approach (ICD-10-PCS; principal; 2017-09-23)
PROC: 3E0337Z Introduction of Electrolytic and Water Balance Substance into Peripheral Vein, Percutaneous Approach (ICD-10-PCS; 2017-09-23)
DX: E11.649 Type 2 diabetes mellitus with hypoglycemia without coma (principal); R68.0 Hypothermia, not associated with low environmental temperature; E11.311 Type 2 diabetes mellitus with unspecified diabetic retinopathy with macular edema; Z79.4 Long term (current) use of insulin; I10 Essential (primary) hypertension; I25.2 Old myocardial infarction; I25.10 Atherosclerotic heart disease of native coronary artery without angina pectoris; E78.5 Hyperlipidemia, unspecified; K64.8 Other hemorrhoids; D69.6 Thrombocytopenia, unspecified; Z95.5 Presence of coronary angioplasty implant and graft; Z95.0 Presence of cardiac pacemaker; N40.0 Benign prostatic hyperplasia without lower urinary tract symptoms; Z91.013 Allergy to seafood; Z87.891 Personal history of nicotine dependence; Z98.1 Arthrodesis status
CPT/HCPCS: 36415; 70450-TC; 71045-TC-FY; 80048; 80053; 80061; 81003; 82550; 82962; 83036; 83605; 83721; 84443; 84484; 85025; 85610; 85730; 86850; 86900; 86901; 87040; 87086; 96372; 99285-25; G0378

== ENCOUNTER 2018-05-20 08:56 | Inpatient (IN) | payer OTHER, MEDICARE ==
[2018-05-20 09:09] VITALS: BMI 30.4
[2018-05-20] MEDS ORDERED: ONDANSETRON *ODT* 4 MG TABLET ONE (09:11)
[2018-05-20] MEDS ORDERED: ASPIRIN 81 MG CHEWABLE TABLETS PO ONE (09:26)
--- NOTE | 2018-05-20 09:30 | PDOC ---
History of Present Illness - History of Present Illness Initial Comments: The patient is an 82M with a PMH of DM, HTN, HLD, hemorrhoids, CAD s/p 5 cardiac stents, pacemaker, who was BIBA and presents with the ER for chest pain. Patient states that he woke up around 5am feeling fine, he started to make breakfast and began feeling nauseous, weak, and clammy. He also reports feeling short of breath, and disoriented. He states that he took 1 nitroglycerin tablet with pain relief. Patient states that he called 911 and EMS gave him 4m of zofran w/ relief. Patient states that this chest pain feels like his prior cardiac issues. Patient states that he is on a baby aspirin but doesnt take any other blood thinners. PCP: Mateo Ohara Social Hx: Denies any cigarette use, drinks socially. Denies any palpitations, shock from pacemaker, fever, chills, diarrhea, recent illness. <Catarina Giles - Last Filed: 05/20/18 10:03> - General History Source: Patient Exam Limitations: No Limitations <Artem Tilley - Last Filed: 05/20/18 11:02> - General Chief Complaint: Chest Pain Stated Complaint: CHEST PAIN Time Seen by Provider: 05/20/18 09:11 Past History <Catarina Giles - Last Filed: 05/20/18 10:03> - Past Medical History Anemia: No Asthma: No Cancer: No Cardiac Disorders: Yes (afib,ppm,cad) CVA: No COPD: No CHF: No DVT: No Dementia: No Diabetes: Yes (IDDM) GI Disorders: No Disorders: No HTN: Yes Hypercholesterolemia: Yes Liver Disease: No Seizures: No Thyroid Disease: No - Surgical History Abdominal Surgery: No Appendectomy: Yes Cardiac Surgery: Yes (PACEMAKER,CARDIAC STENTS X 5) Cholecystectomy: Yes Lung Surgery: No Orthopedic Surgery: Yes (spinal fusion) - Immunization History Immunization Up to Date: Yes - Suicide/Smoking/Psychosocial Hx Smoking Status: Yes Smoking History: Former smoker Have you smoked in the past 12 months: No Number of Cigarettes Smoked Daily: 0 If you are a former smoker, when did you quit?: 28 years ago Information on smoking cessation initiated: No Hx Alcohol Use: No Drug/Substance Use Hx: No Substance Use Type: None Hx Substance Use Treatment: No <Artem Tilley - Last Filed: 05/20/18 11:02> - Past Medical History Allergies/Adverse Reactions: Allergies Allergy/AdvReac Type Severity Reaction Status Date / Time No Known Drug Allergies Allergy Verified 05/20/18 09:06 SEAFOOD Allergy Severe Swelling Uncoded 05/20/18 09:06 Home Medications: Ambulatory Orders RX: Meclizine HCl 25 mg PO TID PRN 07/09/16 RX: Ranolazine [Ranexa -] 500 mg PO BID 07/09/16 RX: Tamsulosin HCl [Flomax] 0.4 mg PO DAILY 07/09/16 RX: Pantoprazole Sodium [Protonix -] 40 mg PO BID #60 tablet.ec 07/13/16 RX: Aspirin [ASA -] 81 mg PO DAILY 09/23/17 RX: Atorvastatin Ca [Lipitor] 10 mg PO DAILY 09/23/17 RX: Losartan Potassium [Cozaar] 100 mg PO DAILY 09/23/17 Insulin Glargine,Hum.rec.anlog [Toujeo Solostar] 40 unit SQ DAILY 05/20/18 Insulin Lispro [Humalog] 8 unit SQ 1900 05/20/18 Linagliptin [Tradjenta] 5 mg PO 1800 05/20/18 Review of Systems - Review of Systems Comments:: GENERAL/CONSTITUTIONAL: No fever or chills. +weakness.+ diaphoretic +disoriented HEAD, EYES, EARS, NOSE AND THROAT: No change in vision. No ear pain or discharge. No sore throat. CARDIOVASCULAR: +chest pain, +shortness of breath. RESPIRATORY: No cough, wheezing, or hemoptysis. GASTROINTESTINAL: +nausea, no vomiting, diarrhea or constipation. GENITOURINARY: No dysuria, frequency, or change in urination. MUSCULOSKELETAL: No joint or muscle swelling or pain. No neck or back pain. SKIN: No rash NEUROLOGIC: No headache, loss of consciousness, or change in strength/sensation. ENDOCRINE: No increased thirst. No abnormal weight change. HEMATOLOGIC/LYMPHATIC: No anemia, easy bleeding, or history of blood clots. ALLERGIC/IMMUNOLOGIC: No hives or skin allergy. <Catarina Giles - Last Filed: 05/20/18 10:03> *Physical Exam - Vital Signs Last Vital Signs Temp Pulse Resp BP Pulse Ox 97 F L 16 L 60 H 135/67 97 05/20/18 09:06 05/20/18 09:06 05/20/18 09:06 05/20/18 09:06 05/20/18 09:06 - Physical Exam Comments: GENERAL: Awake, alert, and fully oriented, in no acute distress HEAD: No signs of trauma EYES: PERRLA, EOMI, sclera anicteric, conjunctiva clear LUNGS: Breath sounds equal, clear to auscultation bilaterally. No wheezes, and no crackles HEART: Pacemaker on left side. Regular rate and rhythm, normal S1 and S2, no murmurs, rubs or gallops ABDOMEN: Soft, nontender. No guarding, no rebound. No masses EXTREMITIES: Normal range of motion, no edema. No clubbing or cyanosis. No cords, erythema, or tenderness NEUROLOGICAL: Cranial nerves II through XII grossly intact. Normal speech. SKIN: Warm, Dry, normal turgor, no rashes or lesions noted. <Catarina Giles - Last Filed: 05/20/18 10:03> - Vital Signs Last Vital Signs Temp Pulse Resp BP Pulse Ox 97 F L 16 L 60 H 135/67 97 05/20/18 09:06 05/20/18 09:06 05/20/18 09:06 05/20/18 09:06 05/20/18 09:06 <Artem Tilley - Last Filed: 05/20/18 11:02> Heart Score/ECG Review - History History: Highly suspicious - Electrocardiogram EKG: Non specific repolarization disturbance - Age Age: >/= 65 - Risk Factors Based on the list above the patient has:: >/=3 risk factors or Hx atherosclerotic disease - Troponin Troponin: </= normal limit - Score Heart Score - Total: 7 #1 ECG reviewed & interpreted by me at: 09:10 05/20/18 09:29 atrial-paced 60 with prolonged AV conduction, RBBB, LAFB, QTC 448 msec, no std/ [place]. <Artem Tilley - Last Filed: 05/20/18 11:02> ED Treatment Course - LABORATORY CBC & Chemistry Diagram: 05/20/18 10:00 05/20/18 10:00 <Artem Tilley - Last Filed: 05/20/18 11:02> Medical Decision Making - Medical Decision Making 05/20/18 09:27 A portion of this note was documented by scribe services under my direction. I have reviewed the details of the note, within reason, and agree with the documentation with the following case summary and management plan written by me. Patient treated in the ED. Nursing notes are reviewed and incorporated into the medical decision-making. Vital signs reviewed. Peripheral IV access obtained by the nurse, laboratory studies are drawn and sent, reviewed and interpreted by myself. Vital Signs Temp Pulse Resp BP Pulse Ox 97 F L 16 L 60 H 135/67 97 05/20/18 09:06 05/20/18 09:06 05/20/18 09:06 05/20/18 09:06 05/20/18 09:06 82-year-old male with past medical history of hypertension, diabetes, hyperlipidemia, coronary disease status post multiple stents, pacemaker presents to the emergency department for chest tightness. The patient reports waking up early this morning in his usual state health. While cooking breakfast , he suddenly developed clamminess, diaphoresis, nausea, chest tightness with associated shortness of breath. The patient had taken a nitroglycerin was significantly relieved his chest pain. Stated his nausea was relieved after EMS gave him Zofran. Denies recent illnesses, fevers, chills, cough, diarrhea, dysuria. Patient reports that this pain feels like his prior acute heart conditions. Side note, Pulse is 60 and RR is 16 (triage VS input incorrectly) Patient's findings are concerning for acute coronary syndrome. We'll give patient a full aspirin. Labs: Troponin, chest x-ray. Patient's chest pain currently 0. We'll need to admit to the hospital for rule out myocardial infarction. 05/20/18 11:00 CBC, BMP 05/20/18 10:00 05/20/18 10:00 CMP Sodium 138 mmol/L (136-145) 05/20/18 10:00 Potassium 4.6 mmol/L (3.5-5.1) 05/20/18 10:00 Chloride 105 mmol/L (98-107) 05/20/18 10:00 Carbon Dioxide 29 mmol/L (21-32) 05/20/18 10:00 Anion Gap 5 MMOL/L (8-16) L 05/20/18 10:00 BUN 21 mg/dL (7-18) H 05/20/18 10:00 Creatinine 1.1 mg/dL (0.55-1.3) 05/20/18 10:00 Creat Clearance w eGFR > 60 (>60) 05/20/18 10:00 Random Glucose 174 mg/dL (74-106) H 05/20/18 10:00 Calcium 8.6 mg/dL (8.5-10.1) 05/20/18 10:00 Magnesium 2.1 mg/dL (1.8-2.4) 05/20/18 10:00 Total Bilirubin 1.3 mg/dL (0.2-1) H 05/20/18 10:00 AST 10 U/L (15-37) L 05/20/18 10:00 ALT 20 U/L (13-61) 05/20/18 10:00 Alkaline Phosphatase 73 U/L (45-117) 05/20/18 10:00 Creatine Kinase 26 IU/L (26-308) 05/20/18 10:00 Troponin I < 0.02 ng/ml (0.00-0.05) 05/20/18 10:00 Total Protein 6.2 g/dl (6.4-8.2) L 05/20/18 10:00 Albumin 3.4 g/dl (3.4-5.0) 05/20/18 10:00 Lipase 74 U/L (73-393) 05/20/18 10:00 Trop negative. Heart score: 7. Case discussed with Dr. Barr Accepts to tele admission. Requests Dr. Garcia for cardiology. <Artem Tilley - Last Filed: 05/20/18 11:02> *DC/Admit/Observation/Transfer - Attestations Scribe Attestion: 05/20/18 10:07 Documentation prepared by Catarina Giles, acting as medical screener for Artem Tilley MD. <Catarina Giles - Last Filed: 05/20/18 10:03> - Discharge Dispostion Decision to Admit order: Yes <Artem Tilley - Last Filed: 05/20/18 11:02> Diagnosis at time of Disposition: Chest pain Qualifiers: Chest pain type: unspecified Qualified Code(s): R07.9 - Chest pain, unspecified - Discharge Dispostion Condition at time of disposition: Stable - Referrals Referrals: Mateo Ohara MD [Primary Care Provider] - - Patient Instructions - Post Discharge Activity
[2018-05-20] MEDS ORDERED: ASPIRIN 325 MG TABLET ONE (09:47)
[2018-05-20 10:14] LABS: BASO % 0.4 % (0-2.0); EOS % 2.2 % (0-4.5); HEMATOCRIT 38.2 % (35.4-49); HEMOGLOBIN 13.3 GM/dL (11.7-16.9); LYMPH % 14.5 % (8-40); MCH 32.5 pg (25.7-33.7); MCHC 34.7 g/dl (32.0-35.9); MEAN CELL VOLUME 93.5 fl (80-96); MEAN PLT VOLUME 9.1 fl (7.5-11.1); MONO % 6.1 % (3.8-10.2); NEUT % 76.8 % (42.8-82.8); PLATELET COUNT 127 K/MM3 (134-434); RBC 4.09 M/mm3 (4.00-5.60); RDW 13.3 % (11.9-15.9); WHITE BLOOD COUNT 6.5 K/mm3 (4.0-10.0)
[2018-05-20 10:28] LABS: INR 0.98 (0.83-1.09); PROTHROMBIN TIME (PATIENT) 11.6 SEC (9.7-13.0)
[2018-05-20 10:31] LABS: ACTIVATED PTT 24.5 SECONDS (25.2-36.5)
[2018-05-20 10:46] LABS: ALBUMIN 3.4 g/dl (3.4-5.0); ALK PHOS 73 U/L (45-117); ANION GAP 5 MMOL/L (8-16); BILIRUBIN,TOTAL 1.3 mg/dL (0.2-1); BLOOD UREA NITROGEN 21 mg/dL (7-18); CALCIUM 8.6 mg/dL (8.5-10.1); CHLORIDE 105 mmol/L (98-107); CO2 29 mmol/L (21-32); CREATININE 1.1 mg/dL (0.55-1.3); GLUCOSE,RANDOM 174 mg/dL (74-106); LIPASE 74 U/L (73-393); MAGNESIUM 2.1 mg/dL (1.8-2.4); POTASSIUM 4.6 mmol/L (3.5-5.1); SGOT/AST 10 U/L (15-37); SGPT/ALT 20 U/L (13-61); SODIUM 138 mmol/L (136-145); TOT PROT 6.2 g/dl (6.4-8.2)
--- NOTE | 2018-05-20 12:59 | HP ---
Admitting History and Physical - Primary Care Physician PCP: Mateo Ohara - Admission Chief Complaint: chest pressure and nausea History of Present Illness: The patient is an 82M with a PMH of DM, HTN, HLD, hemorrhoids, CAD s/p 5 cardiac stents, pacemaker, who was BIBA and presents with the ER for chest pain. Patient states that he woke up around 5am feeling fine, he started to make breakfast and began feeling nauseous, weak, and clammy. He also reports feeling short of breath, and disoriented. He states that he took 1 nitroglycerin tablet with substantial but not complete pain relief. Patient states that he called 911 and EMS gave him 4m of zofran w/ relief. Patient states that this chest pain feels like his prior cardiac issues. Patient states that he is on a baby aspirin but doesnt take any other blood thinners. per patient he says that chest pressure did not radiate, he fellt nauseous,clammy and very weak. currently in ER he has no chest discomfort no nausea no palpitations he got aspirin in ER first set CE was negative ekg paced History Source: Patient, Medical Record - Past Medical History Cardiovascular: Yes: CAD (s/p stents), HTN, Hyperlipdemia, [place] Gastrointestinal: Yes: GI Bleed, Hemorrhoids Endocrine: Yes: Diabetes Mellitus - Past Surgical History Past Surgical History: Yes: Appendectomy, Cholecystectomy, Stent, Upper Endoscopy - Smoking History Smoking history: Former smoker Have you smoked in the past 12 months: No Aproximately how many cigarettes per day: 0 If you are a former smoker, when did you quit?: 28 years ago - Alcohol/Substance Use Hx Alcohol Use: No - Social History ADL: Independent Home Medications - Allergies Allergies/Adverse Reactions: Allergies Allergy/AdvReac Type Severity Reaction Status Date / Time No Known Drug Allergies Allergy Verified 05/20/18 09:06 SEAFOOD Allergy Severe Swelling Uncoded 05/20/18 09:06 - Home Medications Home Medications: Ambulatory Orders Meclizine HCl 25 mg PO TID PRN 07/09/16 Ranolazine [Ranexa -] 500 mg PO BID 07/09/16 Tamsulosin HCl [Flomax] 0.4 mg PO DAILY 07/09/16 Pantoprazole Sodium [Protonix -] 40 mg PO BID #60 tablet.ec 07/13/16 Aspirin [ASA -] 81 mg PO DAILY 09/23/17 Atorvastatin Ca [Lipitor] 10 mg PO DAILY 09/23/17 Losartan Potassium [Cozaar] 100 mg PO DAILY 09/23/17 Insulin Glargine,Hum.rec.anlog [Tou[place] Solostar] 40 unit SQ DAILY 05/20/18 Insulin Lispro [Humalog] 8 unit SQ 1900 05/20/18 Linagliptin [Tradjenta] 5 mg PO 1800 05/20/18 Review of Systems - Review of Systems Neck: reports: No Symptoms Cardiovascular: reports: No Symptoms Respiratory: reports: No Symptoms Physical Examination Vital Signs: Vital Signs Temperature 97 F L 05/20/18 09:06 Pulse Rate 66 05/20/18 11:00 Respiratory Rate 14 05/20/18 11:00 Blood Pressure 120/52 L 05/20/18 11:00 O2 Sat by Pulse Oximetry (%) 99 05/20/18 11:00 Constitutional: Yes: Calm Cardiovascular: Yes: Regular Rate and Rhythm, S1, S2 Respiratory: Yes: CTA Bilaterally Gastrointestinal: Yes: Normal Bowel Sounds, Soft Edema: No Labs: CBC, BMP 05/20/18 10:00 05/20/18 10:00 Imaging - Results Chest X-ray: Report Reviewed (lleft pacemaker no active disease) Problem List - Problems (1) Chest pain Assessment/Plan: telemetry rule out [place] tend CE 3 sets echo aspirin lipid profile cardiology consult aspirin lipitior ranexA Code(s): R07.9 - CHEST PAIN, UNSPECIFIED Qualifiers: Chest pain type: unspecified Qualified Code(s): R07.9 - Chest pain, unspecified (2) BPH (benign prostatic hyperplasia) Assessment/Plan: flomax Code(s): N40.0 - BENIGN PROSTATIC HYPERPLASIA WITHOUT LOWER URINRY TRACT SYMP (3) CAD (coronary artery disease) Assessment/Plan: s/p stents - last was 8 years ago echo cardiology eval Code(s): I25.10 - ATHSCL HEART DISEASE OF [place] CORONARY ARTERY W/O ANG PCTRS (4) Diabetes Assessment/Plan: bgm slidin scale levemir endocrine hgba1c lipid profile goal ldl <70 Code(s): E11.9 - TYPE 2 DIABETES MELLITUS WITHOUT COMPLICATIONS Qualifiers: Diabetes mellitus type: type 2 (5) Hyperlipidemia Code(s): E78.5 - HYPERLIPIDEMIA, UNSPECIFIED
--- NOTE | 2018-05-20 14:59 | CON.CARD ---
Consult Consult Specialty:: Cardiology Referred by:: Dr. Salinas Reason for Consultation:: Chest pain - History of Present Illness Chief Complaint: Chest pain, nausea, dizziness History of Present Illness: 82 year old man pmh HTN, DMII, HLD, CAD, multiple prior stents last approx 2013 now with c/o chest pain, nausea, and dizziness that started this am. Pt states that he was reading the newspaper this am and drank a glass of orange juice. He then felt nausea followed by substernal chest pain and dizziness. he states he took 1 NTG SL with resolution of chest pain but continued nausea. his chest pain later recurred but was again relieved by medication in ER. Currently no complaints. states that for the past few months he has been feeling very fatigued. cannot walk 3 blocks without having to stop due to fatigue. states he has only used NTG approx 2 times in the past several months. denies sob, palpitations, pnd, orthopnea, LE edema. Prior work up as per [facility] Stress MPI 02/2016: Baseline RBBB. No further EKG changes. Small subtle fixed inferoapical defect. Nl wall motion. C/w soft tissue attenuation. Nl EF. echo 02/2016: nl lv/rv, no sig valve path, borderline ao root dil, rosa 2005 [facility] (indication "angina and positive stress test"): Cypher CASSIE x2 to pLAD and mLAD; residual nonobstr dz in D1 and diffusely in LCX system, severe/ diffuse dz small RCA 2007 [facility] (indication "symptoms with anterolateral ischemia on MPI"): Cypher CASSIE to pLAD, PTCA of D1 (mid LAD stent patent) 2008 [facility] ("chest pain with stress test + LAD/diag territory ischemia"): D1 stenosis (jailed by stent)--PTCA done; remainder unchanged 2009 MPI: +mild apicolateral ischemia [facility] 2012 (for chest pain): all patent incl unchanged nonobstr CAD as above [facility] 06/2014 ("sob and chest tightness, relieved by NTG"): EDP 18, EF 60%; patent stents pLAD and mLAD, and patent PTCA site of D1; diffuse nonobstructive dz large LCX/OM1/LPL/LPDA (Left-dominant system); nonobstr dz small RCA - History Source History Provided By: Patient, Medical Record Limitations to Obtaining History: No Limitations - Past Medical History Cardio/Vascular: Yes: CAD (s/p stents), HTN, Hyperlipdemia, [place] Gastrointestinal: Yes: GI Bleed, Hemorrhoids Endocrine: Yes: Diabetes Mellitus - Past Surgical History Past Surgical History: Yes: Appendectomy, Cholecystectomy, Stent, Upper Endoscopy - Alcohol/Substance Use Hx Alcohol Use: No - Smoking History Smoking history: Former smoker Have you smoked in the past 12 months: No Aproximately how many cigarettes per day: 0 If you are a former smoker, when did you quit?: 28 years ago - Social History ADL: Independent Home Medications - Allergies Allergies/Adverse Reactions: Allergies Allergy/AdvReac Type Severity Reaction Status Date / Time No Known Drug Allergies Allergy Verified 05/20/18 09:06 SEAFOOD Allergy Severe Swelling Uncoded 05/20/18 09:06 - Home Medications Home Medications: Ambulatory Orders Meclizine HCl 25 mg PO TID PRN 07/09/16 Ranolazine [Ranexa -] 500 mg PO BID 07/09/16 Tamsulosin HCl [Flomax] 0.4 mg PO DAILY 07/09/16 Pantoprazole Sodium [Protonix -] 40 mg PO BID #60 tablet.ec 07/13/16 Aspirin [ASA -] 81 mg PO DAILY 09/23/17 Atorvastatin Ca [Lipitor] 10 mg PO DAILY 09/23/17 Losartan Potassium [Cozaar] 100 mg PO DAILY 09/23/17 Insulin Glargine,Hum.rec.anlog [Toujeo Solostar] 40 unit SQ DAILY 05/20/18 Insulin Lispro [Humalog] 8 unit SQ 1900 05/20/18 Linagliptin [Tradjenta] 5 mg PO 1800 05/20/18 Family Disease History - Family Disease History Family History: Denies Review of Systems - Review of Systems Constitutional: reports: Malaise, Weakness. denies: No Symptoms, Chills, Diaphoresis, Fever, Lethargy, Loss of Appetite, Night Sweats, Unintentional Wgt. Loss, Other Eyes: denies: No Symptoms, Blind Spots, Blurred Vision, Double Vision, Eye Pain , Floaters, Photophobia, Recent Change in Vision, Other HENT: denies: No Symptoms, Difficult Swallowing, Ear Discharge, Ear Pain, Epistaxis, Gingival Bleeding, Hearing Loss, Mouth Swelling, Nasal Congestion, Ocular Prosthesis, Throat Pain, Toothache, Ringing in Ears, Other Neck: denies: No Symptoms, Decreased ROM, Lumps, Pain on Movement, Stiffness, Swollen Glands, Tenderness, Other Cardiovascular: reports: Chest Pain. denies: No Symptoms, Edema, Palpitations, Shortness of Breath, Other Respiratory: denies: No Symptoms, Cough, Exercise Intolerance, Hemoptysis, Orthopnea, PND, Snoring, SOB, SOB on Exertion, Wheezing, Other Gastrointestinal: reports: Nausea. denies: No Symptoms, Abdominal Pain, Bloating, Constipation, Diarrhea, Dysphagia, Indigestion, Melena, Rectal Bleeding, Vomiting, Vomiting Blood, Other Genitourinary: denies: No Symptoms, Burning, Discharge, Dysuria, Flank Pain, Frequency, Hematuria, Incontinence, Lesions, Menses, Pain, Testicular Mass, Testicular Pain, Testicular Swelling, Urgency, Vaginal Bleeding, Other Breasts: denies: No Symptoms Reported, See HPI, Breast Implants, Discharge from Nipple, Lumps, Pain, Skin Changes, Other Musculoskeletal: reports: Muscle Weakness. denies: No Symptoms, Back Pain, Crepitus, Decreased ROM, Extremity Pain, Joint Pain, Joint Swelling, Muscle Pain , Muscle Cramps, Other Integumentary: denies: No Symptoms, Blister, Bruising, Change in Color, Eczema, Erythema, Incision, Lesions, Lump, Pallor, Pruritis, Rash, Wound, Other Neurological: reports: Dizziness. denies: No Symptoms, Change in LOC, Change in Speech, Confusion, Headache, Incoordination, Numbness, Parasthesia, Pre- Existing Deficit, Seizure, Syncope, Tremors, Unsteady Gait, Weakness, Other Endocrine: denies: No Symptoms, Excessive Sweating, Flushing, Increased Hunger, Increased Thirst, Intolerance to Cold, Intolerance to Heat, Unexplained Weight Gain, Unexplained Weight Loss, Other Hematology/Lymphatic: denies: No Symptoms, Easily Bruised, Excessive Bleeding, Swollen Glands, Other Psychiatric: denies: No Symptoms, Altered Sleep Pattern, Anxiety, Depression, Hallucinations, Panic, Paranoia, Suicidal, Other - Risk Factors Known Risk Factors: Yes: Age, Hypercholesterolemia, Hypertension Vital Signs: Vital Signs Temperature 97 F L 05/20/18 09:06 Pulse Rate 66 05/20/18 11:00 Respiratory Rate 14 05/20/18 11:00 Blood Pressure 120/52 L 05/20/18 11:00 O2 Sat by Pulse Oximetry (%) 99 05/20/18 11:00 Constitutional: Yes: Well Nourished, No Distress, Calm Eyes: Yes: WNL, Conjunctiva Clear, EOM Intact, PERRL HENT: Yes: WNL, Atraumatic, Normocephalic Neck: Yes: WNL, Supple, Trachea Midline Respiratory: Yes: WNL, Regular, CTA Bilaterally. No: Rales, Rhonchi, Wheezes Gastrointestinal: Yes: WNL, Normal Bowel Sounds, Soft. No: Distention, Tenderness Renal/: Yes: WNL Cardiovascular: Yes: WNL, Regular Rate and Rhythm. No: Bradycardia, Tachycardia , Pulse Irregular, Gallop, Rub, Varicosities JVD: No Carotid Bruit: No PMI: Non-Displaced Heart Sounds: Yes: S1, S2. No: Split S2, S3, S4, Clicks, Gallop, Rub, Bruit Murmur: No: Systolic Murmur, Diastolic Murmur Musculoskeletal: Yes: WNL Extremities: Yes: WNL Edema: No Peripheral Pulses WNL: Yes Peripheral Pulses: 2+ Left Doralis Pedis, 2+ Right Dorsalis Pedis Integumentary: Yes: WNL Neurological: Yes: Alert, Oriented Psychiatric: Yes: Alert, Oriented - Other Data Labs, Other Data: CBC, BMP 05/20/18 10:00 05/20/18 10:00 INR, PTT INR 0.98 (0.83-1.09) 05/20/18 10:00 Troponin, BNP 05/20/18 10:00 Troponin I < 0.02 Troponin, BNP 05/20/18 10:00 Troponin I < 0.02 atrial paced 60bpm rbbb, lafb Echo: Report Reviewed Prior Cardiac Procedures: PTCA with Stent Imaging - Results Chest X-ray: Report Reviewed, Image Reviewed EKG: Report Reviewed, Image Reviewed Other: Report Reviewed, Image Reviewed Assessment/Plan 82 year old man pmh HTN, DMII, HLD, CAD, multiple prior stents last approx 2013 now with c/o chest pain, nausea, and dizziness that started this am. Pt states that he was reading the newspaper this am and drank a glass of orange juice. He then felt nausea followed by substernal chest pain and dizziness. he states he took 1 NTG SL with resolution of chest pain but continued nausea. his chest pain later recurred but was again relieved by medication in ER. Currently no complaints. states that for the past few months he has been feeling very fatigued. cannot walk 3 blocks without having to stop due to fatigue. states he has only used NTG approx 2 times in the past several months. denies sob, palpitations, pnd, orthopnea, LE edema. Prior work up as per [facility] Stress MPI 02/2016: Baseline RBBB. No further EKG changes. Small subtle fixed inferoapical defect. Nl wall motion. C/w soft tissue attenuation. Nl EF. echo 02/2016: nl lv/rv, no sig valve path, borderline ao root dil, rosa 2005 [facility] (indication "angina and positive stress test"): Cypher CASSIE x2 to pLAD and mLAD; residual nonobstr dz in D1 and diffusely in LCX system, severe/ diffuse dz small RCA 2007 [facility] (indication "symptoms with anterolateral ischemia on MPI"): Cypher CASSIE to pLAD, PTCA of D1 (mid LAD stent patent) 2008 [facility] ("chest pain with stress test + LAD/diag territory ischemia"): D1 stenosis (jailed by stent)--PTCA done; remainder unchanged 2009 MPI: +mild apicolateral ischemia [facility] 2012 (for chest pain): all patent incl unchanged nonobstr CAD as above [facility] 06/2014 ("sob and chest tightness, relieved by NTG"): EDP 18, EF 60%; patent stents pLAD and mLAD, and patent PTCA site of D1; diffuse nonobstructive dz large LCX/OM1/LPL/LPDA (Left-dominant system); nonobstr dz small RCA Chest pain-with h/o multiple PCI, last being 2008 with last cath 2013 as above showing patent stents and otherwise non-obs CAD -follows with Dr. Erickson as outpatient -cardiac enzymes wnl x 1 today -no ischemia on ekg -trend serial cardiac enzymes and ekgs -tele monitoring -cont home ASA, Lipitor -fup echo that was ordered -plan for pharm nuclear stress test tomorrow to evaluate for ischemia PPM- -outpatient fup
[2018-05-20] MEDS: INSULIN SLIDING SCALE (NOVOLOG) 1 VIAL SQ SCH ×2 (16:32→21:19)
[2018-05-20] MEDS: RANOLAZINE E.R. 500 MG TABLET (FP) PO SCH (21:12)
[2018-05-20] MEDS: HEPARIN NA (PORCINE) 5,000 UNITS/ML 1ML VIAL SQ SCH (21:12)
--- NOTE | 2018-05-20 21:25 | EKG ---
Test Reason : Blood Pressure : / mmHG Vent. Rate : 060 BPM Atrial Rate : 040 BPM P-R Int : 000 ms QRS Dur : 126 ms QT Int : 448 ms P-R-T Axes : 000 -55 024 degrees QTc Int : 448 ms Atrial-paced rhythm with prolonged AV conduction RIGHT BUNDLE BRANCH BLOCK LEFT ANTERIOR FASCICULAR BLOCK BIFASCICULAR BLOCK ABNORMAL ECG WHEN COMPARED WITH ECG OF 09-JUL-2016 10:59, ELECTRONIC ATRIAL PACEMAKER HAS REPLACED SINUS RHYTHM VENT. RATE HAS DECREASED BY 43 BPM Confirmed by MADAN GUAJARDO MD ([id number]) on 05/20/2018 9:24:50 PM Referred By: Confirmed By:MADAN GUAJARDO MD
[2018-05-20] MEDS ORDERED: INSULIN (LEVEMIR) 100 UNITS/ML UNITS SQ SCH (22:00)
[2018-05-20] MEDS ORDERED: ATORVASTATIN CA 10 MG TABLET (FP) PO SCH (22:00)
[2018-05-21] MEDS: INSULIN SLIDING SCALE (NOVOLOG) 1 VIAL SQ SCH ×2 (06:03→11:39)
[2018-05-21 06:07] VITALS: TEMP 97.6
[2018-05-21 06:50] LABS: HEMATOCRIT 40.2 % (35.4-49); HEMOGLOBIN 13.7 GM/dL (11.7-16.9); MCH 31.8 pg (25.7-33.7); MCHC 34.1 g/dl (32.0-35.9); MEAN CELL VOLUME 93.2 fl (80-96); MEAN PLT VOLUME 9.1 fl (7.5-11.1); PLATELET COUNT 139 K/MM3 (134-434); RBC 4.31 M/mm3 (4.00-5.60); RDW 13.2 % (11.9-15.9); WHITE BLOOD COUNT 5.7 K/mm3 (4.0-10.0)
[2018-05-21] MEDS ORDERED: INSULIN (LEVEMIR) 100 UNITS/ML UNITS SQ SCH (07:00)
[2018-05-21 07:05] LABS: ALBUMIN 3.5 g/dl (3.4-5.0); ALK PHOS 73 U/L (45-117); ANION GAP 6 MMOL/L (8-16); BILIRUBIN,TOTAL 1.4 mg/dL (0.2-1); BLOOD UREA NITROGEN 21 mg/dL (7-18); CALCIUM 8.6 mg/dL (8.5-10.1); CHLORIDE 103 mmol/L (98-107); CHOLESTEROL 127 mg/dL (50-200); CO2 29 mmol/L (21-32); CREATININE 1.3 mg/dL (0.55-1.3); GLUCOSE,RANDOM 141 mg/dL (74-106); HDL CHOLESTEROL 40 mg/dL (40-60); MAGNESIUM 2.3 mg/dL (1.8-2.4); POTASSIUM 4.4 mmol/L (3.5-5.1); SGOT/AST 16 U/L (15-37); SGPT/ALT 21 U/L (13-61); SODIUM 137 mmol/L (136-145); TOT PROT 6.5 g/dl (6.4-8.2); TRIGLYCERIDES 155 mg/dL (0-150)
[2018-05-21] MEDS: TAMSULOSIN HCL 0.4 MG CAP PO SCH ×2 (09:06→14:29)
[2018-05-21] MEDS: LOSARTAN POTASSIUM 50 MG TABLET (FP) PO SCH ×2 (09:06→14:30)
[2018-05-21] MEDS: HEPARIN NA (PORCINE) 5,000 UNITS/ML 1ML VIAL SQ SCH (09:06)
[2018-05-21] MEDS: RANOLAZINE E.R. 500 MG TABLET (FP) PO SCH ×2 (09:07→14:29)
[2018-05-21] MEDS ORDERED: REGADENOSON 0.4 MG/5 ML PRE-FILLED SYRINGE IVPUSH ONE ×2 (09:15→11:10)
--- NOTE | 2018-05-21 09:48 | PN ---
Progress Note, Physician History of Present Illness: seen and examined today in [facility]. no overnight events. no new complaints. - Current Medication List Current Medications: Active Medications Atorvastatin Calcium (Lipitor -) 10 mg PO HS [facility] Last Admin: 05/20/18 21:12 Dose: 10 mg Heparin Sodium (Porcine) (Heparin -) 5,000 unit SQ BID [facility] Last Admin: 05/21/18 09:06 Dose: Not Given Insulin Aspart (Novolog Vial Sliding Scale -) 1 vial SQ ACHS [facility]; Protocol Last Admin: 05/21/18 06:03 Dose: Not Given Insulin Detemir (Levemir Vial) 20 units SQ AM [facility] Last Admin: 05/21/18 06:03 Dose: Not Given Losartan Potassium (Cozaar -) 100 mg PO DAILY [facility] Last Admin: 05/21/18 09:06 Dose: Not Given Ranolazine (Ranexa -) 500 mg PO BID [facility] Last Admin: 05/21/18 09:07 Dose: Not Given Tamsulosin HCl (Flomax -) 0.4 mg PO DAILY@0830 [facility] Last Admin: 05/21/18 09:06 Dose: Not Given - Objective Vital Signs: Vital Signs Temperature 97.6 F 05/21/18 05:00 Pulse Rate 87 05/21/18 08:20 Respiratory Rate 20 05/21/18 08:20 Blood Pressure 127/79 05/21/18 08:20 O2 Sat by Pulse Oximetry (%) 98 05/21/18 07:29 Constitutional: Yes: No Distress, Calm Eyes: Yes: Conjunctiva Clear, EOM Intact, PERRL HENT: Yes: Atraumatic, Normocephalic Neck: Yes: Supple, Trachea Midline Cardiovascular: Yes: Regular Rate and Rhythm, S1, S2. No: Bradycardia, Tachycardia, Pulse Irregular, Bruit, JVD, Gallop, Murmur, Rub, S3, S4, Varicosities Respiratory: Yes: Regular, CTA Bilaterally. No: Rales, Rhonchi, SOB, Wheezes Gastrointestinal: Yes: Normal Bowel Sounds, Soft. No: Distention, Tenderness Musculoskeletal: Yes: WNL Extremities: Yes: WNL Edema: No Peripheral Pulses WNL: Yes Peripheral Pulses: Left Doralis Pedis: 2+, Right Dorsalis Pedis: 2+ Integumentary: Yes: WNL Neurological: Yes: Alert, Oriented Psychiatric: Yes: Alert, Oriented Labs: CBC, BMP 05/21/18 05:30 05/21/18 05:30 INR, PTT INR 0.98 (0.83-1.09) 05/20/18 10:00 - ....Imaging Chest X-ray: Report Reviewed, Image Reviewed EKG: Report Reviewed, Image Reviewed Other: Report Reviewed, Image Reviewed (tele-nsr, pvcs) Assessment/Plan 82 year old man pmh HTN, DMII, HLD, CAD, multiple prior stents last approx 2013 now with c/o chest pain, nausea, and dizziness that started this am. Pt states that he was reading the newspaper this am and drank a glass of orange juice. He then felt nausea followed by substernal chest pain and dizziness. he states he took 1 NTG SL with resolution of chest pain but continued nausea. his chest pain later recurred but was again relieved by medication in ER. Currently no complaints. states that for the past few months he has been feeling very fatigued. cannot walk 3 blocks without having to stop due to fatigue. states he has only used NTG approx 2 times in the past several months. denies sob, palpitations, pnd, orthopnea, LE edema. Prior work up as per [facility] MPI 02/2016: Baseline RBBB. No further EKG changes. Small subtle fixed inferoapical defect. Nl wall motion. C/w soft tissue attenuation. Nl EF. echo 02/2016: nl lv/rv, no sig valve path, borderline ao root dil, rosa 2005 [facility] (indication "angina and positive stress test"): Cypher CASSIE x2 to pLAD and mLAD; residual nonobstr dz in D1 and diffusely in LCX system, severe/ diffuse dz small RCA 2007 [facility] (indication "symptoms with anterolateral ischemia on MPI"): Cypher CASSIE to pLAD, PTCA of D1 (mid LAD stent patent) 2008 [facility] ("chest pain with stress test + LAD/diag territory ischemia"): D1 stenosis (jailed by stent)--PTCA done; remainder unchanged 2009 MPI: +mild apicolateral ischemia [facility] 2012 (for chest pain): all patent incl unchanged nonobstr CAD as above [facility] 06/2014 ("sob and chest tightness, relieved by NTG"): EDP 18, EF 60%; patent stents pLAD and mLAD, and patent PTCA site of D1; diffuse nonobstructive dz large LCX/OM1/LPL/LPDA (Left-dominant system); nonobstr dz small RCA Chest pain-with h/o multiple PCI, last being 2008 with last cath 2013 as above showing patent stents and otherwise non-obs CAD -follows with Dr. Erickson as outpatient -cardiac enzymes wnl x 3 -no ischemia on ekg -no sig arrhythmias on tele -cont home ASA, Lipitor -fup echo -fup pharm nuclear stress test to evaluate for ischemia PPM- -outpatient fup
--- NOTE | 2018-05-21 11:44 | CONSULT ---
Consult Consult Specialty:: endocrine Referred by:: dr.saba mcgowan Reason for Consultation:: diabetes mellitus type 2 - History of Present Illness Chief Complaint: chest pain History of Present Illness: 82M with a PMH of DM, HTN, HLD, hemorrhoids, CAD s/p 5 cardiac stents, pacemaker , who was BIBA and presents with the ER for chest pain. Patient states that he woke up at home with cp, has had prior episode of cp this time pain unrelieved with slntg,or antacid medication,pain was same as prior cardiac pain.no hypoglycemia,nausea or vomiting. - Past Medical History Cardio/Vascular: Yes: CAD (s/p stents), HTN, Hyperlipdemia, [place] Gastrointestinal: Yes: GI Bleed, Hemorrhoids Endocrine: Yes: Diabetes Mellitus - Past Surgical History Past Surgical History: Yes: Appendectomy, Cholecystectomy, Stent, Upper Endoscopy - Alcohol/Substance Use Hx Alcohol Use: No - Smoking History Smoking history: Former smoker Have you smoked in the past 12 months: No Aproximately how many cigarettes per day: 0 If you are a former smoker, when did you quit?: 28 years ago - Social History ADL: Independent Home Medications - Allergies Allergies/Adverse Reactions: Allergies Allergy/AdvReac Type Severity Reaction Status Date / Time No Known Drug Allergies Allergy Verified 05/20/18 09:06 SEAFOOD Allergy Severe Swelling Uncoded 05/20/18 09:06 - Home Medications Home Medications: Ambulatory Orders Meclizine HCl 25 mg PO TID PRN 07/09/16 Ranolazine [Ranexa -] 500 mg PO BID 07/09/16 Tamsulosin HCl [Flomax] 0.4 mg PO DAILY 07/09/16 Pantoprazole Sodium [Protonix -] 40 mg PO BID #60 tablet.ec 07/13/16 Aspirin [ASA -] 81 mg PO DAILY 09/23/17 Atorvastatin Ca [Lipitor] 10 mg PO DAILY 09/23/17 Losartan Potassium [Cozaar] 100 mg PO DAILY 09/23/17 Insulin Glargine,Hum.rec.anlog [Toujeo Solostar] 40 unit SQ DAILY 05/20/18 Insulin Lispro [Humalog] 8 unit SQ 1900 05/20/18 Linagliptin [Tradjenta] 5 mg PO 1800 05/20/18 Review of Systems - Review of Systems Constitutional: reports: Weakness Eyes: reports: No Symptoms HENT: reports: No Symptoms Neck: reports: No Symptoms Cardiovascular: reports: Shortness of Breath Respiratory: reports: Exercise Intolerance, SOB on Exertion Gastrointestinal: reports: Bloating, Constipation Genitourinary: reports: Frequency Breasts: reports: No Symptoms Reported Musculoskeletal: reports: Joint Pain Neurological: reports: Numbness Endocrine: reports: No Symptoms Physical Exam Vital Signs: Vital Signs Temperature 97.6 F 05/21/18 05:00 Pulse Rate 87 05/21/18 08:20 Respiratory Rate 20 05/21/18 08:20 Blood Pressure 127/79 05/21/18 08:20 O2 Sat by Pulse Oximetry (%) 98 05/21/18 07:29 Constitutional: Yes: Calm Eyes: Yes: EOM Intact HENT: Yes: Normocephalic Neck: Yes: Trachea Midline Cardiovascular: Yes: Regular Rate and Rhythm Respiratory: Yes: CTA Bilaterally Gastrointestinal: Yes: Normal Bowel Sounds ...Rectal Exam: Yes: Deferred Renal/: Yes: WNL Breast(s): Yes: WNL Musculoskeletal: Yes: Muscle Pain, Muscle Weakness Extremities: Yes: WNL Edema: No Peripheral Pulses WNL: No Integumentary: Yes: WNL Neurological: Yes: Alert, Oriented Psychiatric: Yes: Alert, Oriented Labs: CBC, BMP 05/21/18 05:30 05/21/18 05:30 Problem List - Problems (1) Chest pain Code(s): R07.9 - CHEST PAIN, UNSPECIFIED Qualifiers: Chest pain type: unspecified Qualified Code(s): R07.9 - Chest pain, unspecified (2) BPH (benign prostatic hyperplasia) Code(s): N40.0 - BENIGN PROSTATIC HYPERPLASIA WITHOUT LOWER URINRY TRACT SYMP (3) CAD (coronary artery disease) Code(s): I25.10 - ATHSCL HEART DISEASE OF [place] CORONARY ARTERY W/O ANG PCTRS (4) DVT prophylaxis Code(s): [id number] - (5) Diabetes Code(s): E11.9 - TYPE 2 DIABETES MELLITUS WITHOUT COMPLICATIONS Qualifiers: Diabetes mellitus type: type 2 (6) Duodenal ulcer with hemorrhage Code(s): K26.4 - CHRONIC OR UNSPECIFIED DUODENAL ULCER WITH HEMORRHAGE (7) Duodenitis with bleeding Code(s): K29.81 - DUODENITIS WITH BLEEDING Assessment/Plan Current Active Problems Chest pain (Acute) diabetes mellitus neuropathy hypertension ashd hyperlipidemia hyperglycemia angina Abnormal Lab Results 05/21/18 05/21/18 05:30 05:30 Anion Gap 6 L BUN 21 H Random Glucose 141 H Hemoglobin A1c % 9.1 H Total Bilirubin 1.4 H Triglycerides 155 H Laboratory Results - last 24 hr 05/20/18 05/20/18 05/20/18 16:29 17:30 20:51 WBC RBC Hgb Hct MCV MCH MCHC RDW Plt Count MPV Sodium Potassium Chloride Carbon Dioxide Anion Gap BUN Creatinine Creat Clearance w eGFR POC Glucometer [id number] 340 Random Glucose Hemoglobin A1c % Calcium Magnesium Total Bilirubin AST ALT Alkaline Phosphatase Creatine Kinase 32 Troponin I < 0.02 Total Protein Albumin Triglycerides Cholesterol Total LDL Cholesterol HDL Cholesterol 05/21/18 05/21/18 05/21/18 05:30 05:30 05:30 WBC 5.7 RBC 4.31 Hgb 13.7 Hct 40.2 MCV 93.2 MCH 31.8 MCHC 34.1 RDW 13.2 Plt Count 139 MPV 9.1 Sodium 137 Potassium 4.4 Chloride 103 Carbon Dioxide 29 Anion Gap 6 L BUN 21 H Creatinine 1.3 Creat Clearance w eGFR 52.85 POC Glucometer Random Glucose 141 H Hemoglobin A1c % 9.1 H Calcium 8.6 Magnesium 2.3 Total Bilirubin 1.4 H AST 16 ALT 21 Alkaline Phosphatase 73 Creatine Kinase 34 Troponin I < 0.02 Total Protein 6.5 Albumin 3.5 Triglycerides 155 H Cholesterol 127 Total LDL Cholesterol 75 HDL Cholesterol 40 Current Medications Generic Name Dose Route Start Last Admin Trade Name Keeganq PRN Reason Stop Dose Admin Atorvastatin Calcium 10 mg 05/20/18 22:00 05/20/18 21:12 Lipitor - PO 10 mg HS [facility] Administration Heparin Sodium (Porcine) 5,000 unit 05/20/18 22:00 05/21/18 09:06 Heparin - SQ Not Given BID [facility] Insulin Aspart 1 vial 05/20/18 16:30 05/21/18 11:39 Novolog Vial Sliding Scale - SQ Not Given ACHS [facility] Protocol Insulin Detemir 25 units 05/22/18 07:00 Levemir Vial SQ AM [facility] Losartan Potassium 100 mg 05/21/18 10:00 05/21/18 09:06 Cozaar - PO Not Given DAILY [facility] Ranolazine 500 mg 05/20/18 22:00 05/21/18 09:07 Ranexa - PO Not Given BID [facility] Tamsulosin HCl 0.4 mg 05/21/18 08:30 05/21/18 09:06 Flomax - PO Not Given DAILY@0830 [facility] plan: bgm qid novolog insulindoses levemir 25 units am cardiac workup in progress
--- NOTE | 2018-05-21 12:37 | PN ---
Progress Note, Physician Chief Complaint: Chest pain History of Present Illness: At Stress test Seen by Cardiology Labs unremarkable Uncontrolled diabetes- seen by Endocrinology - Current Medication List Current Medications: Active Medications Atorvastatin Calcium (Lipitor -) 10 mg PO HS [facility] Last Admin: 05/20/18 21:12 Dose: 10 mg Heparin Sodium (Porcine) (Heparin -) 5,000 unit SQ BID [facility] Last Admin: 05/21/18 09:06 Dose: Not Given Insulin Aspart (Novolog Vial Sliding Scale -) 1 vial SQ ACHS [facility]; Protocol Last Admin: 05/21/18 11:39 Dose: Not Given Insulin Detemir (Levemir Vial) 25 units SQ AM [facility] Losartan Potassium (Cozaar -) 100 mg PO DAILY [facility] Last Admin: 05/21/18 09:06 Dose: Not Given Ranolazine (Ranexa -) 500 mg PO BID [facility] Last Admin: 05/21/18 09:07 Dose: Not Given Tamsulosin HCl (Flomax -) 0.4 mg PO DAILY@0830 [facility] Last Admin: 05/21/18 09:06 Dose: Not Given - Objective Vital Signs: Vital Signs Temperature 97.6 F 05/21/18 05:00 Pulse Rate 87 05/21/18 08:20 Respiratory Rate 20 05/21/18 08:20 Blood Pressure 127/79 05/21/18 08:20 O2 Sat by Pulse Oximetry (%) 98 05/21/18 07:29 Labs: CBC, BMP 05/21/18 05:30 05/21/18 05:30 INR, PTT INR 0.98 (0.83-1.09) 05/20/18 10:00 Problem List - Problems (1) Chest pain Assessment/Plan: -Seen by cardiology -Stress test preliminary report negative Code(s): R07.9 - CHEST PAIN, UNSPECIFIED Qualifiers: Chest pain type: unspecified Qualified Code(s): R07.9 - Chest pain, unspecified (2) CAD (coronary artery disease) Assessment/Plan: -LDL goal <70 mg/dl -Increase Atorvastatin to 20 mg po HS -Seen by Cardiology -On Aspirin, Code(s): I25.10 - ATHSCL HEART DISEASE OF [place] CORONARY ARTERY W/O ANG PCTRS (3) Diabetes Assessment/Plan: -A1c at 9.1 -Seen by Endocrinology -Diabetic low sodium diet -On levemir and novolog sliding scale -BGM AC HS -At Home: On Tradjenta 5 mg po daily, Humalog and Toujeo 40 units daily Code(s): E11.9 - TYPE 2 DIABETES MELLITUS WITHOUT COMPLICATIONS Qualifiers: Diabetes mellitus type: type 2 Assessment/Plan see problem list
[2018-05-21 12:59] VITALS: BP 141/77; PULSE 80
[2018-05-21] MEDS ORDERED: MECLIZINE HCL 25 MG TABLET (FP) PO PRN (14:16)
[2018-05-21] MEDS ORDERED: ASPIRIN 81 MG CHEWABLE TABLETS PO SCH (14:30)
--- NOTE | 2018-05-21 17:41 | ECHO ---
Name: GRACE CAPONE Exam:Adult Echocardiogram Study Date: 05/21/2018 08:36 AM Age: 82 yrs Reason For Study: LOOK FOR WALL MOTION ABNORMALITIES Height: 69 in Weight: 206 lb BSA: 2.1 m2 MMode/2D Measurements & Calculations IVSd: 0.90 cm Ao root diam: 3.1 cm LVIDd: 5.2 cm LA dimension: 3.8 cm LVIDs: 3.9 cm LVPWd: 0.88 cm EDV(Teich): 132.4 ml ESV(Teich): 64.5 ml Doppler Measurements & Calculations MV E max fan: 64.2 cm/sec Ao V2 max: 92.3 cm/sec MV A max fan: 93.3 cm/sec Ao max P.4 mmHg MV E/A: 0.69 LV V1 max P.0 mmHg TR max fan: 217.5 cm/sec LV V1 max: 71.0 cm/sec TR max P.0 mmHg Med Peak E' Fan: 5.5 cm/sec Med E/e': 11.8 Lat Peak E' Fan: 4.6 cm/sec Lat E/e': 14.0 Procedure A complete two-dimensional transthoracic echocardiogram was performed (2D, M-mode, Doppler and color flow Doppler). Left Ventricle The left ventricular size, thickness and function are normal. Ejection Fraction = 65%. The transmitra l spectral Doppler flow pattern is suggestive of impaired LV relaxation. The left ventricular wall nehemias on is normal. Mitral Valve There is mild mitral annular calcification. There is trace mitral regurgitation. Tricuspid Valve The tricuspid valve is not well visualized, but is grossly normal. There is trace tricuspid regurgita tion. Right ventricular systolic pressure is normal. Aortic Valve There is mild aortic sclerosis.;. Trace aortic regurgitation. Pulmonic Valve The pulmonic valve is not well visualized. Great Vessels The aortic root is normal size. Pericardium/Pleura There is no pericardial effusion. There is no pleural effusion. Interpretation Summary The left ventricular size, thickness and function are normal Ejection Fraction = 65%. There is mild mitral annular calcification. There is trace mitral regurgitation. There is trace tricuspid regurgitation. Right ventricular systolic pressure is normal. There is mild aortic sclerosis.; Trace aortic regurgitation. MD Be Garcia 05/21/2018 05:40 PM
[2018-05-21] MEDS ORDERED: ATORVASTATIN CA 20 MG TABLET (FP) PO SCH (22:00)
[2018-05-21] MEDS ORDERED: PANTOPRAZOLE 40 MG TABLET (FP) PO SCH (22:00)
[2018-05-22] MEDS ORDERED: INSULIN (LEVEMIR) 100 UNITS/ML UNITS SQ SCH (07:00)
== END 2018-05-21 15:51 | disposition home or self-care (01) | DRG 303 ==
LOC: JER 08:56 → JERBED 11:02 → J4W 18:30
PROVIDERS: ADMIT Student in an Organized Health Care Education/Training Program; ATTEND Student in an Organized Health Care Education/Training Program
DX: I25.119 Atherosclerotic heart disease of native coronary artery with unspecified angina pectoris (principal); I10 Essential (primary) hypertension; E78.5 Hyperlipidemia, unspecified; I48.91 Unspecified atrial fibrillation; R07.89 Other chest pain; K64.9 Unspecified hemorrhoids; I45.10 Unspecified right bundle-branch block; E11.40 Type 2 diabetes mellitus with diabetic neuropathy, unspecified; E11.65 Type 2 diabetes mellitus with hyperglycemia; N40.0 Benign prostatic hyperplasia without lower urinary tract symptoms; I25.2 Old myocardial infarction; Z95.5 Presence of coronary angioplasty implant and graft; Z95.0 Presence of cardiac pacemaker; Z87.891 Personal history of nicotine dependence
CPT/HCPCS: 36415; 71045-TC-FY; 78452-TC; 80048; 80053; 80061; 82550; 82962; 83036; 83690; 83721; 83735; 84484; 85025; 85027; 85610; 85730; 93005; 93010; 93017; 93306-TC; 99284-25; A9502; J1644; J2785

== ENCOUNTER 2018-10-11 10:12 | Inpatient (IN) | payer OTHER, MEDICARE ==
[2018-10-11 10:25] VITALS: BMI 31.6
[2018-10-11] MEDS ORDERED: HYDROmorphone HCL CARPU-JECT 2 MG/1 ML DISP.SYRIN IVPUSH ONE ×2 (11:51→14:28)
[2018-10-11 12:21] LABS: BASO % 0.4 % (0-2.0); EOS % 0.8 % (0-4.5); HEMATOCRIT 37.3 % (35.4-49); HEMOGLOBIN 13.4 GM/dL (11.7-16.9); LYMPH % 8.2 % (8-40); MCH 33.7 pg (25.7-33.7); MCHC 35.8 g/dl (32.0-35.9); MEAN CELL VOLUME 94.1 fl (80-96); MEAN PLT VOLUME 9.6 fl (7.5-11.1); MONO % 4.4 % (3.8-10.2); NEUT % 86.2 % (42.8-82.8); PLATELET COUNT 130 K/MM3 (134-434); RBC 3.96 M/mm3 (4.00-5.60); RDW 13.2 % (11.9-15.9); WHITE BLOOD COUNT 9.5 K/mm3 (4.0-10.0)
[2018-10-11] MEDS ORDERED: HYDROmorphone HCl 2 MG/ML VIAL ONE ×2 (12:24→14:47)
[2018-10-11 12:44] LABS: INR 1.06 (0.83-1.09); PROTHROMBIN TIME (PATIENT) 12.5 SEC (9.7-13.0)
[2018-10-11 13:00] LABS: ALBUMIN 3.2 g/dl (3.4-5.0); ALK PHOS 62 U/L (45-117); ANION GAP 5 MMOL/L (8-16); BILIRUBIN,TOTAL 1.5 mg/dL (0.2-1); BLOOD UREA NITROGEN 21 mg/dL (7-18); CALCIUM 8.3 mg/dL (8.5-10.1); CHLORIDE 106 mmol/L (98-107); CO2 26 mmol/L (21-32); CREATININE 1.1 mg/dL (0.55-1.3); GLUCOSE,RANDOM 214 mg/dL (74-106); POTASSIUM 4.7 mmol/L (3.5-5.1); SGOT/AST 17 U/L (15-37); SGPT/ALT 21 U/L (13-61); SODIUM 137 mmol/L (136-145); TOT PROT 5.9 g/dl (6.4-8.2)
--- NOTE | 2018-10-11 13:06 | PDOC ---
History of Present Illness - General Chief Complaint: Injury Stated Complaint: HIP PAIN Time Seen by Provider: 10/11/18 11:42 History Source: Patient Exam Limitations: No Limitations - History of Present Illness Initial Comments: 10/11/18 14:48 83-year-old male with history of pacemaker hypertension, dyslipidemia, and diabetes presents to ED with complaints of pain to his right hip and upper leg after falling while utilizing his walker this morning. Patient states was attempting to get dressed and while turning around using his walker he had tripped causing him to fall. Patient states did hit the back of his head but had no LOC. Patient states was unable to get up from the floor secondary to pain to his right leg along with difficulty moving his right leg. Patient denies previous injury to the affected area or sensory changes distal to injury. Occurred: reports: just prior to arrival Severity: reports: severe Pain Location: reports: lower extremity Method of Injury: Yes: fall Modifying Factors: improves with: None Loss of Consciousness: no loss of consciousness Associated Symptoms (Fall): trouble walking Past History - Travel Traveled outside of the country in the last 30 days: No Close contact w/someone who was outside of country & ill: No - Past Medical History Allergies/Adverse Reactions: Allergies Allergy/AdvReac Type Severity Reaction Status Date / Time No Known Drug Allergies Allergy Verified 10/11/18 10:24 SEAFOOD Allergy Severe Swelling Uncoded 10/11/18 10:24 Home Medications: Ambulatory Orders Meclizine HCl 25 mg PO TID PRN 07/09/16 Ranolazine [Ranexa -] 500 mg PO BID 07/09/16 Tamsulosin HCl [Flomax] 0.4 mg PO DAILY 07/09/16 Pantoprazole Sodium [Protonix -] 40 mg PO BID #60 tablet.ec 07/13/16 Aspirin [ASA -] 81 mg PO DAILY 09/23/17 Atorvastatin Ca [Lipitor] 10 mg PO DAILY 09/23/17 Losartan Potassium [Cozaar] 100 mg PO DAILY 09/23/17 Insulin Glargine,Hum.rec.anlog [Toujeo Solostar] 40 unit SQ DAILY 05/20/18 Insulin Lispro [Humalog] 8 unit SQ 1900 05/20/18 Anemia: No Asthma: No Cancer: No Cardiac Disorders: Yes (afib,ppm,cad) CVA: No COPD: No CHF: No DVT: No Dementia: No Diabetes: Yes (IDDM) GI Disorders: No Disorders: No HTN: Yes Hypercholesterolemia: Yes Liver Disease: No Seizures: No Thyroid Disease: No - Surgical History Abdominal Surgery: No Appendectomy: Yes Cardiac Surgery: Yes (PACEMAKER,CARDIAC STENTS X 5) Cholecystectomy: Yes Lung Surgery: No Orthopedic Surgery: Yes (spinal fusion) - Immunization History Immunization Up to Date: Yes - Suicide/Smoking/Psychosocial Hx Smoking Status: Yes Smoking History: Unknown if ever smoked Have you smoked in the past 12 months: No Number of Cigarettes Smoked Daily: 0 If you are a former smoker, when did you quit?: 28 years ago Hx Alcohol Use: No Drug/Substance Use Hx: No Substance Use Type: None Hx Substance Use Treatment: No Patient Lives Alone: Yes Lives with/in: lives alone Review of Systems - Review of Systems Able to Perform ROS?: Yes Constitutional: No: Symptoms Reported HEENTM: No: Symptoms Reported Respiratory: No: Symptoms reported Cardiac (ROS): No: Symptoms Reported ABD/GI: No: Symptoms Reported : No: Symptoms Reported Musculoskeletal: Yes: Joint Pain (rt upper leg/hip) Integumentary: No: Symptoms Reported Neurological: No: Symptoms reported Hematologic/Lymphatic: No: Symptoms Reported *Physical Exam - Vital Signs Last Vital Signs Temp Pulse Resp BP Pulse Ox 98.2 F 64 18 115/90 100 10/11/18 10:24 10/11/18 10:24 10/11/18 10:24 10/11/18 10:24 10/11/18 10:24 - Physical Exam General Appearance: Yes: Nourished, Appropriately Dressed, Mild Distress HEENT: positive: EOMI, SYMONE, Pharynx Normal. negative: Pale Conjunctivae Neck: positive: Normal Thyroid, Supple. negative: Decreased range of motion Respiratory/Chest: positive: Lungs Clear, Normal Breath Sounds. negative: Chest Tender, Respiratory Distress, Accessory Muscle Use Cardiovascular: positive: Regular Rhythm, Regular Rate. negative: Murmur Gastrointestinal/Abdominal: positive: Soft. negative: Tenderness Extremity: negative: Normal Inspection (noted deformity to lat of midshaft of rt femur), Normal Range of Motion Integumentary: positive: Normal Color, Warm, Moist Neurologic: positive: Normal Mood/Affect Moderate Sedation - Procedure Monitoring Vital Signs: Procedure Monitoring Vital Signs Temperature 98.2 F 03/15/19 10:24 Pulse Rate 64 10/11/18 10:24 Respiratory Rate 18 10/11/18 10:24 Blood Pressure 115/90 10/11/18 10:24 O2 Sat by Pulse Oximetry (%) 100 10/11/18 10:24 Heart Score/ECG Review - ECG Intrepretation Rhythm: Regular Rhythm (rate 60. Atrial paced rhythm with prolonged AV conduction. right bundle-branch block) ED Treatment Course - LABORATORY CBC & Chemistry Diagram: 10/11/18 12:15 10/11/18 12:15 - ADDITIONAL ORDERS Additional order review: Laboratory Results 10/11/18 12:15 PT with INR 12.50 INR 1.06 10/11/18 12:15 RBC 3.96 L MCV 94.1 MCHC 35.8 RDW 13.2 MPV 9.6 Neutrophils % 86.2 H Lymphocytes % 8.2 D Monocytes % 4.4 Eosinophils % 0.8 Basophils % 0.4 - RADIOLOGY Radiology Studies Ordered: Category Date Time Status CERVICAL SPINE CT W/O CONTR [CT] Stat CT Scan 10/11/18 11:[address] WITHOUT CONTRAST [CT] Stat CT Scan 10/11/18 11:[address] WITHOUT CONTRAST [CT] Stat CT Scan 10/11/18 11:49 Ordered - Medications Given in the ED: ED Medications Discontinued Medications Generic Name Dose Route Start Last Admin Trade Name Freq PRN Reason Stop Dose Admin Hydromorphone HCl 0.5 mg 10/11/18 11:51 10/11/18 12:28 Dilaudid Injection - IVPUSH 10/11/18 11:52 0.5 mg ONCE ONE Administration Medical Decision Making - Medical Decision Making 10/11/18 14:09 Complaint: Right leg right hip pain after falling this a.m. Exam. Patient with noted deformity to lateral aspect of proximal femur Plan patient ordered for preop labs, dilaudid, CT of the head neck and hips/ pelvis to include the lower extremity. 10/11/18 14:51 Laboratory Tests 10/11/18 10/11/18 10/11/18 12:15 12:15 12:15 WBC 9.5 Hgb 13.4 Hct 37.3 Plt Count 130 L MPV 9.6 Absolute Neuts (auto) 8.2 H Neutrophils % 86.2 H PT with INR 12.50 INR 1.06 Sodium 137 Potassium 4.7 Chloride 106 Carbon Dioxide 26 Anion Gap 5 L BUN 21 H Creatinine 1.1 Creat Clearance w eGFR 63.93 Random Glucose 214 H Calcium 8.3 L Total Bilirubin 1.5 H AST 17 ALT 21 Alkaline Phosphatase 62 Total Protein 5.9 L Albumin 3.2 L Blood Type Antibody Screen 10/11/18 12:15 WBC Hgb Hct Plt Count MPV Absolute Neuts (auto) Neutrophils % PT with INR INR Sodium Potassium Chloride Carbon Dioxide Anion Gap BUN Creatinine Creat Clearance w eGFR Random Glucose Calcium Total Bilirubin AST ALT Alkaline Phosphatase Total Protein Albumin Blood Type O POSITIVE Antibody Screen Negative 10/11/18 14:[address] shows no gross evidence of compression fracture subluxation or jump facets. Prominent calcified plaques that the common carotid bifurcation right more than left. Head CT shows no gross evidence of focal H cranial lesion or hemorrhage. CT of the pelvis and lower extremity shows both hip joints appear intact. Comminuted displaced fracture of the proximal shaft of the right femur with medial displacement of the distal segment and mild surrounding soft tissue swelling edema. 10/11/18 15:00 Called and spoke to Dr. Rogers who states patient will have surgery Sunday morning. He recommends additional imaging . Femur x-ray ordered. Patient given another dose of Dilaudid secondary to pain along with Zofran for nausea. Consult placed anesthesiologists to consider a block. Dr. Ohara present and will admit to Dr. Gray. 10/11/18 15:44 Spoke with anesthesiologist and will be able to perform the block in the OR then patient will proceed to the PACU then directly to his admitted room. I escorted patient to the holding area and sign off was given to the OR nurse *DC/Admit/Observation/Transfer Diagnosis at time of Disposition: Right femoral fracture - Discharge Dispostion Decision to Admit order: Yes - Referrals - Patient Instructions - Post Discharge Activity
[2018-10-11] MEDS ORDERED: ONDANSETRON 4 MG/2 ML VIAL ONE (14:57)
[2018-10-11] MEDS ORDERED: ONDANSETRON 4 MG/2 ML VIAL IVPUSH ONE (14:59)
[2018-10-11] MEDS ORDERED: BUPIVACAINE LIPOSOME/PF (EXPAREL) 266 MG/20 ML VIAL ONE (15:39)
[2018-10-11] MEDS ORDERED: BUPIVACAINE HCL/PF 0.25% (2.5MG/ML) 10 ML VIAL ONE (15:39)
[2018-10-11] MEDS ORDERED: MECLIZINE HCL 25 MG TABLET (FP) PO PRN (23:54)
--- NOTE | 2018-10-12 00:16 | CONSULT ---
Consult Consult Specialty:: endocrinology Referred by:: dr.annabi mullen Reason for Consultation:: diabetes type 2 - History of Present Illness Chief Complaint: fell and fracture to right hip History of Present Illness: 83-year-old male with history of DM2,pacemaker hypertension, dyslipidemia, presenting via ems for injury to right hip and upper leg after falling while utilizing his walker this morning. Patient states was attempting to get dressed and while turning around using his walker he had tripped causing him to fall. Patient states did hit the back of his head but had no LOC. Patient was awoken by district home economics agent,when he opened the door and went back to his room to get dressed he lost his ballance and fell.he remembers not taking insulin or meds yet and his last pm sugar was not low. - History Source History Provided By: Patient, Family Member - Past Medical History Cardio/Vascular: Yes: CAD (s/p stents), HTN, Hyperlipdemia, [place] Gastrointestinal: Yes: GI Bleed, Hemorrhoids Endocrine: Yes: Diabetes Mellitus - Past Surgical History Past Surgical History: Yes: Appendectomy, Cholecystectomy, Stent, Upper Endoscopy - Alcohol/Substance Use Hx Alcohol Use: No - Smoking History Smoking history: Former smoker Have you smoked in the past 12 months: No Aproximately how many cigarettes per day: 0 If you are a former smoker, when did you quit?: 28 years ago - Social History ADL: Independent Home Medications - Allergies Allergies/Adverse Reactions: Allergies Allergy/AdvReac Type Severity Reaction Status Date / Time No Known Drug Allergies Allergy Verified 10/11/18 10:24 SEAFOOD Allergy Severe Swelling Uncoded 10/11/18 10:24 - Home Medications Home Medications: Ambulatory Orders Meclizine HCl 25 mg PO TID PRN 07/09/16 Ranolazine [Ranexa -] 500 mg PO BID 07/09/16 Tamsulosin HCl [Flomax] 0.4 mg PO DAILY 07/09/16 Pantoprazole Sodium [Protonix -] 40 mg PO BID #60 tablet.ec 07/13/16 Aspirin [ASA -] 81 mg PO DAILY 09/23/17 Atorvastatin Ca [Lipitor] 10 mg PO DAILY 09/23/17 Losartan Potassium [Cozaar] 100 mg PO DAILY 09/23/17 Insulin Glargine,Hum.rec.anlog [Toujeo Solostar] 40 unit SQ DAILY 05/20/18 Insulin Lispro [Humalog] 8 unit SQ 1900 05/20/18 Review of Systems - Review of Systems Constitutional: reports: Weakness Eyes: reports: No Symptoms HENT: reports: No Symptoms Neck: reports: No Symptoms Cardiovascular: reports: No Symptoms Respiratory: reports: No Symptoms Gastrointestinal: reports: Bloating Genitourinary: reports: No Symptoms Breasts: reports: No Symptoms Reported Musculoskeletal: reports: Joint Swelling, Muscle Pain, Muscle Cramps Integumentary: reports: No Symptoms Endocrine: reports: Unexplained Weight Loss Physical Exam Vital Signs: Vital Signs Temperature 97.6 F 10/11/18 20:00 Pulse Rate 84 10/11/18 20:00 Respiratory Rate 18 10/11/18 21:00 Blood Pressure 123/59 L 10/11/18 20:00 O2 Sat by Pulse Oximetry (%) 96 10/11/18 21:00 Constitutional: Yes: Calm Eyes: Yes: EOM Intact HENT: Yes: Normocephalic Neck: Yes: Trachea Midline Cardiovascular: Yes: Regular Rate and Rhythm Respiratory: Yes: CTA Bilaterally Gastrointestinal: Yes: Normal Bowel Sounds ...Rectal Exam: Yes: Deferred Renal/: Yes: WNL Musculoskeletal: Yes: Joint Swelling, Muscle Pain, Muscle Weakness Extremities: Yes: Internal Rotation Edema: No Peripheral Pulses WNL: Yes Neurological: Yes: Alert, Oriented, Weakness ...Motor Strength: RLE Labs: CBC, BMP 10/11/18 12:15 10/11/18 12:15 Problem List - Problems (1) Right femoral fracture Code(s): S72.91XA - UNSP FRACTURE OF RIGHT FEMUR, INIT FOR CLOS FX (2) BPH (benign prostatic hyperplasia) Code(s): N40.0 - BENIGN PROSTATIC HYPERPLASIA WITHOUT LOWER URINRY TRACT SYMP (3) CAD (coronary artery disease) (4) DVT prophylaxis Code(s): MQJ4804 - (5) Diabetes Qualifiers: Assessment/Plan Current Active Problems Right femoral fracture (Acute) diabetes mellitus hyperglycemia htn ashd diabetic neuropathy Abnormal Lab Results 10/11/18 10/11/18 12:15 12:15 RBC 3.96 L Plt Count 130 L Absolute Neuts (auto) 8.2 H Neutrophils % 86.2 H Anion Gap 5 L BUN 21 H Random Glucose 214 H Calcium 8.3 L Total Bilirubin 1.5 H Total Protein 5.9 L Albumin 3.2 L Laboratory Results - last 24 hr 10/11/18 10/11/18 10/11/18 12:15 12:15 12:15 WBC 9.5 RBC 3.96 L Hgb 13.4 Hct 37.3 MCV 94.1 MCH 33.7 MCHC 35.8 RDW 13.2 Plt Count 130 L MPV 9.6 Absolute Neuts (auto) 8.2 H Neutrophils % 86.2 H Lymphocytes % 8.2 D Monocytes % 4.4 Eosinophils % 0.8 Basophils % 0.4 Nucleated RBC % 0 PT with INR 12.50 INR 1.06 Sodium 137 Potassium 4.7 Chloride 106 Carbon Dioxide 26 Anion Gap 5 L BUN 21 H Creatinine 1.1 Creat Clearance w eGFR 63.93 Random Glucose 214 H Calcium 8.3 L Total Bilirubin 1.5 H AST 17 ALT 21 Alkaline Phosphatase 62 Total Protein 5.9 L Albumin 3.2 L Blood Type Antibody Screen 10/11/18 12:15 WBC RBC Hgb Hct MCV MCH MCHC RDW Plt Count MPV Absolute Neuts (auto) Neutrophils % Lymphocytes % Monocytes % Eosinophils % Basophils % Nucleated RBC % PT with INR INR Sodium Potassium Chloride Carbon Dioxide Anion Gap BUN Creatinine Creat Clearance w eGFR Random Glucose Calcium Total Bilirubin AST ALT Alkaline Phosphatase Total Protein Albumin Blood Type O POSITIVE Antibody Screen Negative Laboratory Tests 10/11/18 12:15 Sodium 137 Potassium 4.7 Chloride 106 Carbon Dioxide 26 BUN 21 H Creatinine 1.1 Creat Clearance w eGFR 63.93 plan: bgm qid novolog insulin doses levemir 15 units am to start in am ck [id number]
[2018-10-12] MEDS ORDERED: ACETAMINOPHEN 325 MG TABLET (FP) PO PRN (03:06)
[2018-10-12] MEDS: INSULIN SLIDING SCALE (NOVOLOG) 1 VIAL SQ SCH ×4 (06:24→21:18)
[2018-10-12] MEDS ORDERED: INSULIN SLIDING SCALE (NOVOLOG) 1 VIAL SQ SCH (07:00)
[2018-10-12 08:26] LABS: BASO % 0.5 % (0-2.0); HEMATOCRIT 33.2 % (35.4-49); HEMOGLOBIN 11.9 GM/dL (11.7-16.9); LYMPH % 19.1 % (8-40); MCH 33.5 pg (25.7-33.7); MCHC 35.8 g/dl (32.0-35.9); MEAN CELL VOLUME 93.6 fl (80-96); MEAN PLT VOLUME 9.3 fl (7.5-11.1); NEUT % 68.4 % (42.8-82.8); PLATELET COUNT 132 K/MM3 (134-434); RBC 3.54 M/mm3 (4.00-5.60); RDW 13.3 % (11.9-15.9); WHITE BLOOD COUNT 5.9 K/mm3 (4.0-10.0)
[2018-10-12 08:40] LABS: ALBUMIN 3.1 g/dl (3.4-5.0); ALK PHOS 61 U/L (45-117); ANION GAP 5 MMOL/L (8-16); BILIRUBIN,TOTAL 1.9 mg/dL (0.2-1); BLOOD UREA NITROGEN 26 mg/dL (7-18); CALCIUM 8.1 mg/dL (8.5-10.1); CHLORIDE 104 mmol/L (98-107); CO2 27 mmol/L (21-32); CREATININE 1.2 mg/dL (0.55-1.3); GLUCOSE,RANDOM 191 mg/dL (74-106); POTASSIUM 4.7 mmol/L (3.5-5.1); SGOT/AST 32 U/L (15-37); SGPT/ALT 20 U/L (13-61); SODIUM 136 mmol/L (136-145); TOT PROT 5.7 g/dl (6.4-8.2)
[2018-10-12] MEDS: HEPARIN NA (PORCINE) 5,000 UNITS/ML 1ML VIAL SQ SCH ×2 (09:24→21:14)
[2018-10-12] MEDS: TAMSULOSIN HCL 0.4 MG CAP PO SCH (09:24)
[2018-10-12] MEDS: LOSARTAN POTASSIUM 50 MG TABLET (FP) PO SCH (09:24)
[2018-10-12] MEDS: PANTOPRAZOLE 40 MG TABLET (FP) PO SCH ×2 (09:24→21:12)
[2018-10-12] MEDS: ATORVASTATIN CA 10 MG TABLET (FP) PO SCH (09:24)
[2018-10-12] MEDS: RANOLAZINE E.R. 500 MG TABLET (FP) PO SCH ×2 (09:25→21:13)
--- NOTE | 2018-10-12 10:18 | CON.CARD ---
Consult Consult Specialty:: cardio Reason for Consultation:: preop eval - History of Present Illness Chief Complaint: fall, hip pain History of Present Illness: 83 M here with fall. walking with his walker in the home when he suddenly fell. believes he lost balance. does not believe he lost consciousness. denies CP at that time, or in general (i.e. has not had his prior angina sx's). denies sob, palpitations. PMH: CAD DM HTN PPM - Past Medical History Cardio/Vascular: Yes: CAD (s/p stents), HTN, Hyperlipdemia, [place] Gastrointestinal: Yes: GI Bleed, Hemorrhoids Endocrine: Yes: Diabetes Mellitus - Past Surgical History Past Surgical History: Yes: Appendectomy, Cholecystectomy, Stent, Upper Endoscopy - Alcohol/Substance Use Hx Alcohol Use: No - Smoking History Smoking history: Former smoker Have you smoked in the past 12 months: No Aproximately how many cigarettes per day: 0 If you are a former smoker, when did you quit?: 28 years ago - Social History ADL: Independent Home Medications - Allergies Allergies/Adverse Reactions: Allergies Allergy/AdvReac Type Severity Reaction Status Date / Time No Known Drug Allergies Allergy Verified 10/11/18 10:24 SEAFOOD Allergy Severe Swelling Uncoded 10/11/18 10:24 - Home Medications Home Medications: Ambulatory Orders Meclizine HCl 25 mg PO TID PRN 07/09/16 Ranolazine [Ranexa -] 500 mg PO BID 07/09/16 Tamsulosin HCl [Flomax] 0.4 mg PO DAILY 07/09/16 Pantoprazole Sodium [Protonix -] 40 mg PO BID #60 tablet.ec 07/13/16 Aspirin [ASA -] 81 mg PO DAILY 09/23/17 Atorvastatin Ca [Lipitor] 10 mg PO DAILY 09/23/17 Losartan Potassium [Cozaar] 100 mg PO DAILY 09/23/17 Insulin Glargine,Hum.rec.anlog [Toudeboraho Solostar] 40 unit SQ DAILY 05/20/18 Insulin Lispro [Humalog] 8 unit SQ 1900 05/20/18 Family Disease History - Family Disease History Family History: Denies (no known CMP) Review of Systems - Review of Systems Constitutional: denies: Chills, Fever Eyes: denies: Eye Pain HENT: denies: Nasal Congestion Neck: denies: Stiffness Cardiovascular: denies: Palpitations Respiratory: denies: Orthopnea, PND Gastrointestinal: denies: Diarrhea, Rectal Bleeding Genitourinary: denies: Burning, Hematuria Musculoskeletal: denies: Muscle Pain Integumentary: denies: Rash Neurological: denies: Numbness, Seizure, Syncope Endocrine: denies: Excessive Sweating Hematology/Lymphatic: denies: Excessive Bleeding Vital Signs: Vital Signs Temperature 98.1 F 10/12/18 06:32 Pulse Rate 92 H 10/12/18 06:32 Respiratory Rate 20 10/12/18 06:32 Blood Pressure 102/55 L 10/12/18 06:32 O2 Sat by Pulse Oximetry (%) 96 10/11/18 21:00 Constitutional: Yes: Well Nourished, No Distress Eyes: No: Sclera Icterus HENT: No: Nasal Congestion Neck: No: Decreased ROM Respiratory: Yes: CTA Bilaterally. No: Accessory Muscle Use, Rales, Wheezes Gastrointestinal: Yes: Normal Bowel Sounds. No: Distention, Hepatomegaly, Palpable Mass, Tenderness Cardiovascular: Yes: Regular Rate and Rhythm JVD: No Carotid Bruit: No PMI: Non-Displaced Heart Sounds: Yes: S1, S2. No: Gallop Murmur: No: Systolic Murmur, Diastolic Murmur Musculoskeletal: Yes: Other (No kyphosis) Extremities: No: Cool, Cyanosis Edema: No Peripheral Pulses: 2+ Left Carotid, 2+ Right Carotid, 2+ Left Doralis Pedis, 2+ Right Dorsalis Pedis Integumentary: No: Jaundice Neurological: Yes: Alert, Oriented (x3) Psychiatric: No: Agitated - Other Data Labs, Other Data: CBC, BMP 10/12/18 07:10 10/12/18 07:10 INR, PTT INR 1.06 (0.83-1.09) 10/11/18 12:15 Laboratory Tests 03/18/16 03/18/16 10/12/18 09:50 14:06 07:10 WBC 5.9 Hgb 11.9 Plt Count 132 L Sodium Potassium Carbon Dioxide BUN Creatinine AST ALT Troponin I < 0.02 < 0.02 10/12/18 07:10 WBC Hgb Plt Count Sodium 136 Potassium 4.7 Carbon Dioxide 27 BUN 26 H Creatinine 1.2 AST 32 ALT 20 Troponin I Assessment/Plan ECG: A-p/V-s. RBBB/LAFB. no path q's, no ST-T (no change vs prior CXR: clear lungs/pleura Stress MPI 04/2018 (jannet): no ST changes. normal perfusion. normal LVEF Stress MPI 2016: Baseline RBBB. No further EKG changes. Small subtle fixed inferoapical defect. Nl wall motion. findings c/w soft tissue attenuation. Nl EF. Echo 2016: nl lv/rv, no sig valve path, borderline ao root dil, rosa [facility] 2013 ("sob and chest tightness, relieved by NTG"): EDP 18, EF 60%; patent stents pLAD and mLAD, and patent PTCA site of D1; diffuse nonobstructive dz large LCX/OM1/LPL/LPDA (Left-dominant system); nonobstr dz small RCA [facility] 2012 (for chest pain): all patent incl unchanged nonobstr CAD as above [facility] 2008 ("chest pain with stress test + LAD/diag territory ischemia"): D1 stenosis (jailed by stent)--PTCA done; remainder unchanged [facility] 2007 (indication "symptoms with anterolateral ischemia on MPI"): Cypher CASSIE to pLAD, PTCA of D1 (mid LAD stent patent) [facility] 2005 (indication "angina and positive stress test"): Cypher CASSIE x2 to pLAD and mLAD; residual nonobstr dz in D1 and diffusely in LCX system, severe/ diffuse dz small RCA s/p mechanical fall with femur frx, preop CV eval: -tripped over his walker at home -Revised CV Risk Index = 2, decr functional capacity -no s/sx of active CAD or CHF -pt at acceptable CV risk from planned surgery and anesthesia. -no cardiac testing indicated at present time. -can hold aspirin as needed per ortho cad s/p pci: -pt of dr canales (we are covering for him) -pt has hx of chronic intermittent angina (nitro-sensitive) thought to be 2/2 small vessel dz with mult caths showing no obstructive dz for these sx's (2012, 2013)--treated with ranexa -no angina in long time per pt -mibi 04/2018 no ischemia -ASA, statin per home regimen -not on BB per home list--same plan HTN: -bp controlled -continue home meds DM on insulin: -per dr sheppard ppm: -routine outpt checks with dr canales as doing h/o GIB 2018 (duodenal ulcer s/p cauterization): -ulcer thought to be due to nsaid use -was on ASA only for remote PCIs at that time--back on this now -H/H normal
--- NOTE | 2018-10-12 10:28 | HP ---
Admitting History and Physical - Primary Care Physician PCP: Estela Gray (Kavin Erickson) - Admission Chief Complaint: S/P Fall. Right femur Fracture History of Present Illness: 83-year-old male with history of pacemaker hypertension, dyslipidemia, and diabetes presents to ED with complaints of pain to his right hip and upper leg after falling while utilizing his walker this morning. Patient states was attempting to get dressed and while turning around using his walker he had tripped causing him to fall. Patient states did hit the back of his head but had no LOC. Patient states was unable to get up from the floor secondary to pain to his right leg along with difficulty moving his right leg. Patient denies previous injury to the affected area or sensory changes distal to injury. History Source: Patient, Medical Record Limitations to Obtaining History: No Limitations - Past Medical History Cardiovascular: Yes: CAD (s/p stents), HTN, Hyperlipdemia, ND Gastrointestinal: Yes: GI Bleed, Hemorrhoids Endocrine: Yes: Diabetes Mellitus - Past Surgical History Past Surgical History: Yes: Appendectomy, Cholecystectomy, Stent, Upper Endoscopy - Smoking History Smoking history: Former smoker Have you smoked in the past 12 months: No Aproximately how many cigarettes per day: 0 If you are a former smoker, when did you quit?: 28 years ago - Alcohol/Substance Use Hx Alcohol Use: No - Social History ADL: Independent Home Medications - Allergies Allergies/Adverse Reactions: Allergies Allergy/AdvReac Type Severity Reaction Status Date / Time No Known Drug Allergies Allergy Verified 10/11/18 10:24 SEAFOOD Allergy Severe Swelling Uncoded 10/11/18 10:24 - Home Medications Home Medications: Ambulatory Orders Meclizine HCl 25 mg PO TID PRN 07/09/16 Ranolazine [Ranexa -] 500 mg PO BID 07/09/16 Tamsulosin HCl [Flomax] 0.4 mg PO DAILY 07/09/16 Pantoprazole Sodium [Protonix -] 40 mg PO BID #60 tablet.ec 07/13/16 Aspirin [ASA -] 81 mg PO DAILY 09/23/17 Atorvastatin Ca [Lipitor] 10 mg PO DAILY 09/23/17 Losartan Potassium [Cozaar] 100 mg PO DAILY 09/23/17 Insulin Glargine,Hum.rec.anlog [Toosmar Solostlacey] 40 unit SQ DAILY 05/20/18 Insulin Lispro [Humalog] 8 unit SQ 1900 05/20/18 Review of Systems - Review of Systems Constitutional: reports: No Symptoms Eyes: reports: No Symptoms HENT: reports: No Symptoms Neck: reports: No Symptoms Cardiovascular: reports: No Symptoms Respiratory: reports: No Symptoms Gastrointestinal: reports: No Symptoms Genitourinary: reports: No Symptoms Breasts: reports: No Symptoms Reported Musculoskeletal: reports: Extremity Pain (RLE) Integumentary: reports: No Symptoms Neurological: reports: No Symptoms Endocrine: reports: No Symptoms Hematology/Lymphatic: reports: No Symptoms Psychiatric: reports: No Symptoms Physical Examination Vital Signs: Vital Signs Temperature 98.1 F 10/12/18 06:32 Pulse Rate 92 H 10/12/18 06:32 Respiratory Rate 20 10/12/18 06:32 Blood Pressure 102/55 L 10/12/18 06:32 O2 Sat by Pulse Oximetry (%) 96 10/11/18 21:00 Constitutional: Yes: Well Nourished, No Distress, Calm Cardiovascular: Yes: Regular Rate and Rhythm Respiratory: Yes: Regular Gastrointestinal: Yes: Normal Bowel Sounds, Soft, Abdomen, Obese Musculoskeletal: Yes: Other (RLE pain) Edema: No Peripheral Pulses WNL: Yes Neurological: Yes: Alert, Oriented Psychiatric: Yes: Alert, Oriented Labs: CBC, BMP 10/12/18 07:10 10/12/18 07:10 Imaging - Results X-ray: Report Reviewed Problem List - Problems (1) Right femoral fracture Assessment/Plan: -Seen by orthopedic surgery -plan to OR tomorrow -Cardiology clearance -Pain management -Rehab - Code(s): S72.91XA - UNSP FRACTURE OF RIGHT FEMUR, INIT FOR CLOS FX (2) Diabetes Assessment/Plan: -BGM AC HS -Diabetic, low sodium diet -Insulin- Novolog sliding scale -RD consult -last A1c at 9.1 in 04/2018 -Recheck A1 C -Endocrine consult Code(s): E11.9 - TYPE 2 DIABETES MELLITUS WITHOUT COMPLICATIONS Qualifiers: Diabetes mellitus type: type 2 (3) Hypertension Assessment/Plan: -Continue Losartan+ Code(s): I10 - ESSENTIAL (PRIMARY) HYPERTENSION Assessment/Plan See problem list DVT prophylaxis
[2018-10-12 10:58] LABS: URINE APPEARANCE CLEAR; URINE BILIRUBIN NEGATIVE (<2.0 mg/dL); URINE COLOR DKYELLOW; URINE GLUCOSE (UA) 3+ (NEGATIVE); URINE KETONE NEGATIVE (NEGATIVE); URINE LEUK ESTERASE NEGATIVE (NEGATIVE); URINE NITRITE NEGATIVE (NEGATIVE); URINE PROTEIN NEGATIVE (NEGATIVE); URINE UROBILINOGEN NEGATIVE mg/dL (0.2-1.0)
[2018-10-12] MEDS ORDERED: traMADol HCL 50 MG TABLET PO PRN (11:16)
[2018-10-12] MEDS ORDERED: INSULIN (NOVOLOG) ASPART 100 UNITS/ML 10ML VIAL ONE ×2 (11:39→21:18)
[2018-10-12] MEDS: oxyCODONE HCL 5 MG TABLET PO PRN ×2 (11:40→17:38)
[2018-10-12] MEDS: ACETAMINOPHEN 325 MG TABLET (FP) PO PRN ×2 (11:41→17:38)
--- NOTE | 2018-10-12 13:15 | CONSULT ---
Consult Consult Specialty:: orthopedics Reason for Consultation:: right hip - History of Present Illness History of Present Illness: 83 y/o male c/o right hip and thigh pain after a fall yesterday. Was unable to walk after the fall. The pain the leg is worse with movement and better with rest. He is resting in bed comfortably. He denies any numbness or tingling. - History Source History Provided By: Patient, Medical Record - Past Medical History Cardio/Vascular: Yes: CAD (s/p stents), HTN, Hyperlipdemia, CT Gastrointestinal: Yes: GI Bleed, Hemorrhoids Endocrine: Yes: Diabetes Mellitus - Past Surgical History Past Surgical History: Yes: Appendectomy, Cholecystectomy, Stent, Upper Endoscopy - Alcohol/Substance Use Hx Alcohol Use: No - Smoking History Smoking history: Former smoker Have you smoked in the past 12 months: No Aproximately how many cigarettes per day: 0 If you are a former smoker, when did you quit?: 28 years ago - Social History ADL: Independent Home Medications - Allergies Allergies/Adverse Reactions: Allergies Allergy/AdvReac Type Severity Reaction Status Date / Time No Known Drug Allergies Allergy Verified 10/11/18 10:24 SEAFOOD Allergy Severe Swelling Uncoded 10/11/18 10:24 - Home Medications Home Medications: Ambulatory Orders Meclizine HCl 25 mg PO TID PRN 07/09/16 Ranolazine [Ranexa -] 500 mg PO BID 07/09/16 Tamsulosin HCl [Flomax] 0.4 mg PO DAILY 07/09/16 Pantoprazole Sodium [Protonix -] 40 mg PO BID #60 tablet.ec 07/13/16 Aspirin [ASA -] 81 mg PO DAILY 09/23/17 Atorvastatin Ca [Lipitor] 10 mg PO DAILY 09/23/17 Losartan Potassium [Cozaar] 100 mg PO DAILY 09/23/17 Insulin Glargine,Hum.rec.anlog [Toujeo Solostar] 40 unit SQ DAILY 05/20/18 Insulin Lispro [Humalog] 8 unit SQ 1900 05/20/18 Review of Systems - Review of Systems Constitutional: reports: No Symptoms Eyes: reports: No Symptoms HENT: reports: No Symptoms Neck: reports: No Symptoms Cardiovascular: reports: No Symptoms Respiratory: reports: No Symptoms Gastrointestinal: reports: No Symptoms Genitourinary: reports: No Symptoms Breasts: reports: No Symptoms Reported Musculoskeletal: reports: No Symptoms Integumentary: reports: No Symptoms Neurological: reports: No Symptoms Endocrine: reports: No Symptoms Hematology/Lymphatic: reports: No Symptoms Psychiatric: reports: No Symptoms Physical Exam Vital Signs: Vital Signs Temperature 98.1 F 10/12/18 06:32 Pulse Rate 92 H 10/12/18 06:32 Respiratory Rate 20 10/12/18 06:32 Blood Pressure 102/55 L 10/12/18 06:32 O2 Sat by Pulse Oximetry (%) 96 10/11/18 21:00 Constitutional: Yes: Well Nourished, No Distress, Calm Musculoskeletal: Yes: Other (RLE: The leg is externally rotated. No open wounds. There is tendnerss along the right hip and thigh. There is pain with motion of the RLE. Compartments soft. NVID. Neg vivek's sign) Labs: CBC, BMP 10/12/18 07:10 10/12/18 07:10 Imaging - Results X-ray: Report Reviewed, Image Reviewed (Right proximal femur subtrocantric fx) Assessment/Plan #1 Right Proximal femur fracture -Case discussed with Dr. mars. Will proceed with ORIF tomorrow. -Bed rest, NPO after midnight
--- NOTE | 2018-10-12 18:03 | EKG ---
Test Reason : Blood Pressure : / mmHG Vent. 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
[2018-10-12] MEDS ORDERED: DOCUSATE SODIUM 100 MG CAPSULE (FP) PO SCH (22:00)
--- NOTE | 2018-10-12 22:09 | PN ---
Progress Note, Physician Chief Complaint: feeling better today less pain History of Present Illness: dm2,htn,sp fracture rt hip, pain on movement,denies cp cough or vomiting - Current Medication List Current Medications: Active Medications Acetaminophen (Tylenol -) 650 mg PO Q4H PRN PRN Reason: PAIN LEVEL 1 - 3 Last Admin: 10/12/18 17:38 Dose: 650 mg Atorvastatin Calcium (Lipitor -) 10 mg PO DAILY [facility] Last Admin: 10/12/18 09:24 Dose: 10 mg Docusate Sodium (Colace -) 300 mg PO HS [facility] Last Admin: 10/12/18 21:11 Dose: 300 mg Heparin Sodium (Porcine) (Heparin -) 5,000 unit SQ BID [facility] Last Admin: 10/12/18 21:14 Dose: 5,000 unit Insulin Aspart (Novolog Vial Sliding Scale -) 1 vial SQ ACHS [facility]; Protocol Last Admin: 10/12/18 21:18 Dose: 4 units Losartan Potassium (Cozaar -) 100 mg PO DAILY [facility] Last Admin: 10/12/18 09:24 Dose: 100 mg Meclizine HCl (Antivert -) 25 mg PO Q8H PRN PRN Reason: VERTIGO Oxycodone HCl (Roxicodone -) 5 mg PO Q6H PRN PRN Reason: PAIN LEVEL 7 - 10 Last Admin: 10/12/18 17:38 Dose: 5 mg Pantoprazole Sodium (Protonix -) 40 mg PO BID [facility] Last Admin: 10/12/18 21:12 Dose: 40 mg Ranolazine (Ranexa -) 500 mg PO BID [facility] Last Admin: 10/12/18 21:13 Dose: 500 mg Tamsulosin HCl (Flomax -) 0.4 mg PO DAILY@0830 [facility] Last Admin: 10/12/18 09:24 Dose: 0.4 mg Tramadol HCl (Ultram -) 50 mg PO Q6H PRN PRN Reason: PAIN LEVEL 4 - 6 Last Admin: 10/12/18 21:12 Dose: 50 mg - Objective Vital Signs: Vital Signs Temperature 98.8 F 10/12/18 14:43 Pulse Rate 100 H 10/12/18 14:43 Respiratory Rate 20 10/12/18 09:00 Blood Pressure 105/41 L 10/12/18 14:43 O2 Sat by Pulse Oximetry (%) 98 10/12/18 09:00 Constitutional: Yes: Anxious Eyes: Yes: EOM Intact HENT: Yes: Normocephalic Neck: Yes: Trachea Midline Cardiovascular: Yes: Regular Rate and Rhythm Respiratory: Yes: CTA Bilaterally Gastrointestinal: Yes: Normal Bowel Sounds ...Rectal Exam: Yes: Deferred Genitourinary: Yes: WNL Breast(s): Yes: WNL Musculoskeletal: Yes: Muscle Weakness Extremities: Yes: Internal Rotation Edema: No Psychiatric: Yes: Alert, Oriented Labs: CBC, BMP 10/12/18 07:10 10/12/18 07:10 INR, PTT INR 1.06 (0.83-1.09) 10/11/18 12:15 Problem List - Problems (1) Right femoral fracture Code(s): S72.91XA - UNSP FRACTURE OF RIGHT FEMUR, INIT FOR CLOS FX (2) BPH (benign prostatic hyperplasia) Code(s): N40.0 - BENIGN PROSTATIC HYPERPLASIA WITHOUT LOWER URINRY TRACT SYMP (3) CAD (coronary artery disease) (4) DVT prophylaxis Code(s): KYO2779 - (5) Diabetes Qualifiers: Assessment/Plan Current Active Problems Right femoral fracture (Acute) dm 2,ckd htn ashd, hyperlipidemia Abnormal Lab Results 10/12/18 10/12/18 10/12/18 06:00 07:10 07:10 RBC 3.54 L Hct 33.2 L Plt Count 132 L Anion Gap 5 L BUN 26 H Random Glucose 191 H Hemoglobin A1c % Calcium 8.1 L Total Bilirubin 1.9 H Total Protein 5.7 L Albumin 3.1 L Urine Glucose (UA) 3+ H 10/12/18 07:30 RBC Hct Plt Count Anion Gap BUN Random Glucose Hemoglobin A1c % 8.4 H Calcium Total Bilirubin Total Protein Albumin Urine Glucose (UA) Laboratory Results - last 24 hr 10/12/18 10/12/18 10/12/18 06:00 06:22 07:10 WBC 5.9 RBC 3.54 L Hgb 11.9 Hct 33.2 L MCV 93.6 MCH 33.5 MCHC 35.8 RDW 13.3 Plt Count 132 L MPV 9.3 Absolute Neuts (auto) 4.1 Neutrophils % 68.4 D Lymphocytes % 19.1 D Monocytes % 10.0 D Eosinophils % 2.0 D Basophils % 0.5 Nucleated RBC % 0 Sodium Potassium Chloride Carbon Dioxide Anion Gap BUN Creatinine Creat Clearance w eGFR POC Glucometer 199 Random Glucose Hemoglobin A1c % Calcium Total Bilirubin AST ALT Alkaline Phosphatase Total Protein Albumin Urine Color Dkyellow Urine Appearance Clear Urine pH 5.0 Ur Specific [place] 1.020 Urine Protein Negative Urine Glucose (UA) 3+ H Urine Ketones Negative Urine Blood Negative Urine Nitrite Negative Urine Bilirubin Negative Urine Urobilinogen Negative Ur Leukocyte Esterase Negative 10/12/18 10/12/18 10/12/18 07:10 07:30 11:34 WBC RBC Hgb Hct MCV MCH MCHC RDW Plt Count MPV Absolute Neuts (auto) Neutrophils % Lymphocytes % Monocytes % Eosinophils % Basophils % Nucleated RBC % Sodium 136 Potassium 4.7 Chloride 104 Carbon Dioxide 27 Anion Gap 5 L BUN 26 H Creatinine 1.2 Creat Clearance w eGFR 57.82 POC Glucometer 206 Random Glucose 191 H Hemoglobin A1c % 8.4 H Calcium 8.1 L Total Bilirubin 1.9 H AST 32 ALT 20 Alkaline Phosphatase 61 Total Protein 5.7 L Albumin 3.1 L Urine Color Urine Appearance Urine pH Ur Specific [place] Urine Protein Urine Glucose (UA) Urine Ketones Urine Blood Urine Nitrite Urine Bilirubin Urine Urobilinogen Ur Leukocyte Esterase 10/12/18 10/12/18 17:22 21:10 WBC RBC Hgb Hct MCV MCH MCHC RDW Plt Count MPV Absolute Neuts (auto) Neutrophils % Lymphocytes % Monocytes % Eosinophils % Basophils % Nucleated RBC % Sodium Potassium Chloride Carbon Dioxide Anion Gap BUN Creatinine Creat Clearance w eGFR POC Glucometer 221 258 Random Glucose Hemoglobin A1c % Calcium Total Bilirubin AST ALT Alkaline Phosphatase Total Protein Albumin Urine Color Urine Appearance Urine pH Ur Specific [place] Urine Protein Urine Glucose (UA) Urine Ketones Urine Blood Urine Nitrite Urine Bilirubin Urine Urobilinogen Ur Leukocyte Esterase plan: levemir 15 units am bgm achs novolog scale doses stool softner
[2018-10-13] MEDS: INSULIN SLIDING SCALE (NOVOLOG) 1 VIAL SQ SCH ×4 (06:10→21:10)
[2018-10-13] MEDS ORDERED: INSULIN (LEVEMIR) 100 UNITS/ML UNITS SQ SCH (07:00)
[2018-10-13] MEDS: TAMSULOSIN HCL 0.4 MG CAP PO SCH (08:18)
[2018-10-13] MEDS ORDERED: MIDAZOLAM HCL 2 MG/2 ML SINGLE DOSE VIAL ONE (08:31)
[2018-10-13] MEDS ORDERED: PROPOFOL 20 ML ONE (08:32)
[2018-10-13] MEDS ORDERED: ceFAZolin SODIUM 1 GM VIAL ONE (09:15)
[2018-10-13] MEDS ORDERED: ceFAZolin SODIUM 1 GM VIAL IVPB ONE (09:17)
[2018-10-13] MEDS ORDERED: PHENYLEPHRINE HCL 10 MG/1 ML SINGLE DOSE VIAL ONE (09:23)
--- NOTE | 2018-10-13 10:03 | PN ---
Progress Note, Physician Chief Complaint: S/P fall Right Femur fracture History of Present Illness: NAD Going for ORIF today Seen by Ortho+ Cardiology - Current Medication List Current Medications: Active Medications Acetaminophen (Tylenol -) 650 mg PO Q4H PRN PRN Reason: PAIN LEVEL 1 - 3 Last Admin: 10/12/18 17:38 Dose: 650 mg Atorvastatin Calcium (Lipitor -) 10 mg PO DAILY [facility] Last Admin: 10/12/18 09:24 Dose: 10 mg Docusate Sodium (Colace -) 300 mg PO HS [facility] Last Admin: 10/12/18 21:11 Dose: 300 mg Heparin Sodium (Porcine) (Heparin -) 5,000 unit SQ BID [facility] Last Admin: 10/12/18 21:14 Dose: 5,000 unit Insulin Aspart (Novolog Vial Sliding Scale -) 1 vial SQ ACHS [facility]; Protocol Last Admin: 10/13/18 06:10 Dose: Not Given Insulin Detemir (Levemir Vial) 20 units SQ AM [facility] Last Admin: 10/13/18 06:10 Dose: Not Given Losartan Potassium (Cozaar -) 100 mg PO DAILY [facility] Last Admin: 10/12/18 09:24 Dose: 100 mg Meclizine HCl (Antivert -) 25 mg PO Q8H PRN PRN Reason: VERTIGO Oxycodone HCl (Roxicodone -) 5 mg PO Q6H PRN PRN Reason: PAIN LEVEL 7 - 10 Last Admin: 10/12/18 17:38 Dose: 5 mg Pantoprazole Sodium (Protonix -) 40 mg PO BID [facility] Last Admin: 10/12/18 21:12 Dose: 40 mg Ranolazine (Ranexa -) 500 mg PO BID [facility] Last Admin: 10/12/18 21:13 Dose: 500 mg Tamsulosin HCl (Flomax -) 0.4 mg PO DAILY@0830 [facility] Last Admin: 10/13/18 08:18 Dose: Not Given Tramadol HCl (Ultram -) 50 mg PO Q6H PRN PRN Reason: PAIN LEVEL 4 - 6 Last Admin: 10/12/18 21:12 Dose: 50 mg - Objective Vital Signs: Vital Signs Temperature 98.4 F 10/13/18 06:04 Pulse Rate 90 10/13/18 06:04 Respiratory Rate 20 10/13/18 06:04 Blood Pressure 133/66 10/13/18 06:04 O2 Sat by Pulse Oximetry (%) 98 10/12/18 21:00 Constitutional: Yes: Well Nourished, No Distress, Calm Cardiovascular: Yes: Regular Rate and Rhythm Respiratory: Yes: Regular Gastrointestinal: Yes: Normal Bowel Sounds, Soft Musculoskeletal: Yes: Other (RLE pain) Extremities: Yes: WNL Edema: No Peripheral Pulses WNL: Yes Neurological: Yes: Alert, Oriented Psychiatric: Yes: Alert, Oriented Labs: CBC, BMP 10/12/18 07:10 10/12/18 07:10 INR, PTT INR 1.06 (0.83-1.09) 10/11/18 12:15 Problem List - Problems (1) Right femoral fracture Assessment/Plan: -Seen by orthopedic surgery -plan to OR today -Cardiology clearance -Pain management -Rehab - Code(s): S72.91XA - UNSP FRACTURE OF RIGHT FEMUR, INIT FOR CLOS FX (2) Diabetes Assessment/Plan: -BGM AC HS -Diabetic, low sodium diet -Insulin- Novolog sliding scale -RD consult -last A1c at 9.1 in 04/2018 -Repeat A1 C 8.4 -Endocrine consult Code(s): E11.9 - TYPE 2 DIABETES MELLITUS WITHOUT COMPLICATIONS Qualifiers: Diabetes mellitus type: type 2 (3) Hypertension Assessment/Plan: -Continue Losartan Code(s): I10 - ESSENTIAL (PRIMARY) HYPERTENSION Assessment/Plan See problem list DVT prophylaxis Pt is medically stable for OR with acceptable OR risks.
[2018-10-13] MEDS ORDERED: ONDANSETRON 4 MG/2 ML VIAL IVPUSH PRN (10:13)
[2018-10-13] MEDS ORDERED: LACTATED RINGERS SOLUTION 1,000 ML IV SCH ×2 (10:15)
--- NOTE | 2018-10-13 10:15 | OP ---
Operative Note - Note: Operative Date: 10/13/18 Pre-Operative Diagnosis: R FEMUR FX Operation: R GAMMA NAIL Post-Operative Diagnosis: Same as Pre-op Anesthesia: Spinal Estimated Blood Loss (mls): 50 Operative Report Dictated: Yes
--- NOTE | 2018-10-13 10:16 | CONSULT ---
Consult - text type - Consultation Consultation Note: FULL CONSULT DICTATED IMP: R FEMUR PROX 08/01 FX PLAN: TO OR TODAY FOR R GAMMA NAIL
[2018-10-13] MEDS ORDERED: MECLIZINE HCL 25 MG TABLET (FP) PO PRN (10:18)
[2018-10-13] MEDS: LOSARTAN POTASSIUM 50 MG TABLET (FP) PO SCH (10:22)
[2018-10-13] MEDS: HEPARIN NA (PORCINE) 5,000 UNITS/ML 1ML VIAL SQ SCH (10:23)
[2018-10-13] MEDS: PANTOPRAZOLE 40 MG TABLET (FP) PO SCH ×2 (10:23→21:12)
[2018-10-13] MEDS: ATORVASTATIN CA 10 MG TABLET (FP) PO SCH (10:23)
[2018-10-13] MEDS: RANOLAZINE E.R. 500 MG TABLET (FP) PO SCH ×2 (10:24→21:13)
[2018-10-13] MEDS ORDERED: traMADol HCL 50 MG TABLET PO PRN (10:30)
[2018-10-13] MEDS ORDERED: INSULIN (NOVOLOG) ASPART 100 UNITS/ML 10ML VIAL ONE ×2 (13:15→20:27)
[2018-10-13] MEDS: LACTATED RINGERS SOLUTION 1,000 ML IV SCH (13:17)
--- NOTE | 2018-10-13 16:13 | CONS ---
ORTHOPEDIC CONSULTATION DATE OF CONSULTATION: 10/13/2018 HISTORY OF PRESENT ILLNESS: The patient is an 83-year-old male status post fall, injuring his right hip and femur region. He was seen in the emergency room, diagnosed with a left femur fracture and was admitted to the hospital for optimization and operative intervention. After being in the hospital for 36 hours the patient had been cleared for surgery. PHYSICAL EXAM: Extremities: His right lower extremity showed an externally rotated, moderate swelling of the right thigh. Calf was soft, nontender. Had 2+ pulses, grade 2 motion of the ankle and pelvis, markedly increased with any motion of the hip. X-RAYS: Are evaluated and show a proximal one-third right femoral shaft fracture. IMPRESSION: Right proximal femoral shaft fracture. PLAN: To the OR today for right nail. FATMATA CROSS M.D. [id number]
--- NOTE | 2018-10-13 16:49 | OP ---
DATE OF OPERATION: 10/13/2018 PREOPERATIVE DIAGNOSIS: Right proximal third femoral shaft fracture. POSTOPERATIVE DIAGNOSIS: Right proximal third femoral shaft fracture. PROCEDURE: Right intramedullary rodding of the femoral shift fracture. SURGEON: Mau Rogers MD ANESTHESIA: Spinal. CLOSURE: A long gamma nail with appropriate interlock, No. 1 Vicryl fascia, 0 and 2-0 subcutaneous, bryanna to the skin. ESTIMATED BLOOD LOSS: Less than 100 mL. COMPLICATIONS: None. CONDITION: To recovery in stable condition. DESCRIPTION OF PROCEDURE: The patient was taken to the operating room on October 13, 2018. Spinal anesthesia was administered by the anesthesiologist. IV Kefzol was administered prophylactically prior to the case. The patient was fastened to the fracture table with all prominences well padded. Adequate reduction was confirmed by AP and lateral plane using the image intensifier. The lateral aspect of the femur on the hip past the knee were prepped and draped in the usual sterile fashion with the use of a shower curtain. A 3-mm longitudinal incision over the tip of the greater trochanter was incised, hemostasis achieved using Bovie cautery. Sharp dissection was carried through the level of the fascia. A guidewire was drilled from the tip of the trochanter into the proximal femur and this was reamed with the proximal reamer. A guidewire was passed down the intramedullary canal past the fracture into the distal fragment all the way to the knee. His femur was measured to length and reamed with an 11.5 reamer. A 10 x 400 mm long gamma nail was then malleted down in place using the outrigger and a small stab incision laterally. A proximal locking screw was and the screw was the appropriate lag screw. A set screw was placed from above, locked the screw in a static fashion. The traction was then reduced, allowing the fracture and anatomic reduction all were the same. Using the free-hand technique, 2 distal interlocks were placed from lateral to medial through small stab incisions, drilling, depth gauging and screwing with the appropriate-size screws. The outrigger was removed. All incisions were irrigated with copious amounts of irrigation. The fascia was closed with 0-Vicryl, 2-0 for the subcutaneous and bryanna for the skin. Sterile pressure dressing was applied, the patient awakened from anesthesia and transferred to recovery in stable condition. No complications. Estimated blood loss less than 100 mL. Félix [id number]
[2018-10-13] MEDS: CEFAZOLIN 1 GM/D5W 1 GM/50 ML BAG IVPB SCH (17:43)
[2018-10-13] MEDS ORDERED: CEFAZOLIN 1 GM/D5W 50 ML IVPB SCH (18:00)
[2018-10-13] MEDS: oxyCODONE HCL 5 MG TABLET PO PRN (20:12)
--- NOTE | 2018-10-13 21:04 | PN ---
Progress Note (short form) - Note Progress Note: high sugars likely reactive hyperglycemia sp taylor knife nail for fracture rt femur Laboratory Results - last 24 hr 10/12/18 10/13/18 10/13/18 21:10 06:05 12:32 POC Glucometer 258 240 247 10/13/18 10/13/18 17:21 20:24 POC Glucometer 312 273 plan: levemir dose titrate 25 units am bgm qid novolog insulin Problem List - Problems (1) Right femoral fracture Code(s): S72.91XA - UNSP FRACTURE OF RIGHT FEMUR, INIT FOR CLOS FX (2) BPH (benign prostatic hyperplasia) Code(s): N40.0 - BENIGN PROSTATIC HYPERPLASIA WITHOUT LOWER URINRY TRACT SYMP (3) CAD (coronary artery disease) (4) DVT prophylaxis Code(s): FKS5659 - (5) Diabetes Qualifiers:
[2018-10-13] MEDS: DOCUSATE SODIUM 100 MG CAPSULE (FP) PO SCH (21:11)
[2018-10-14] MEDS: CEFAZOLIN 1 GM/D5W 1 GM/50 ML BAG IVPB SCH (01:43)
[2018-10-14] MEDS: LACTATED RINGERS SOLUTION 1,000 ML IV SCH (01:46)
[2018-10-14] MEDS: oxyCODONE HCL 5 MG TABLET PO PRN ×3 (01:49→21:29)
[2018-10-14] MEDS: INSULIN (LEVEMIR) 100 UNITS/ML UNITS SQ SCH (06:33)
[2018-10-14] MEDS: INSULIN SLIDING SCALE (NOVOLOG) 1 VIAL SQ SCH ×4 (06:34→21:32)
[2018-10-14] MEDS ORDERED: INSULIN (LEVEMIR) 100 UNITS/ML UNITS SQ SCH (07:00)
[2018-10-14 07:45] LABS: HEMATOCRIT 26.8 % (35.4-49); MCH 34.5 pg (25.7-33.7); MCHC 37.2 g/dl (32.0-35.9); MEAN CELL VOLUME 92.8 fl (80-96); MEAN PLT VOLUME 9.1 fl (7.5-11.1); PLATELET COUNT 109 K/MM3 (134-434); RBC 2.89 M/mm3 (4.00-5.60); RDW 13.2 % (11.9-15.9); WHITE BLOOD COUNT 5.3 K/mm3 (4.0-10.0)
[2018-10-14 08:13] LABS: ANION GAP 6 MMOL/L (8-16); BLOOD UREA NITROGEN 28 mg/dL (7-18); CALCIUM 7.6 mg/dL (8.5-10.1); CHLORIDE 100 mmol/L (98-107); CO2 26 mmol/L (21-32); CREATININE 1.3 mg/dL (0.55-1.3); GLUCOSE,RANDOM 204 mg/dL (74-106); POTASSIUM 4.3 mmol/L (3.5-5.1); SODIUM 132 mmol/L (136-145)
--- NOTE | 2018-10-14 08:56 | PN ---
Progress Note (short form) - Note Progress Note: Ortho Pt seen and examined s/p right IM gamma nail pod #1 Selected Entries 10/14/18 06:00 Temperature 99.1 F Pulse Rate 69 Respiratory 20 Rate Blood Pressure 105/51 L Laboratory Tests 10/14/18 07:00 WBC 5.3 Hgb 10.0 L Hct 26.8 L D Plt Count 109 L dressing c/d/i, calf soft, nt nvi a/p PT wbat dvt ppx pain control d/c planning
--- NOTE | 2018-10-14 09:01 | PN ---
Progress Note (short form) - Note Progress Note: POD #1 - s/p right IM gamma nail under spinal anesthesia. Pt. doing well, resting comfortably in bed. No complaints. No apparent anesthetic complications noted. Continue current care.
[2018-10-14] MEDS ORDERED: ENOXAPARIN NA (PORCINE) 40 MG/0.4 ML DISP.SYRIN SQ SCH (10:00)
[2018-10-14] MEDS: LOSARTAN POTASSIUM 50 MG TABLET (FP) PO SCH (10:18)
[2018-10-14] MEDS: TAMSULOSIN HCL 0.4 MG CAP PO SCH (10:18)
[2018-10-14] MEDS: PANTOPRAZOLE 40 MG TABLET (FP) PO SCH ×2 (10:19→21:30)
[2018-10-14] MEDS: RANOLAZINE E.R. 500 MG TABLET (FP) PO SCH ×2 (10:21→21:31)
[2018-10-14] MEDS: ENOXAPARIN NA (PORCINE) 40 MG/0.4 ML DISP.SYRIN SQ SCH (10:21)
[2018-10-14] MEDS ORDERED: INSULIN (NOVOLOG) ASPART 100 UNITS/ML 10ML VIAL ONE ×2 (11:45→16:55)
--- NOTE | 2018-10-14 12:01 | PN ---
Progress Note, Physician Chief Complaint: fall, hip pain/frx History of Present Illness: no signif postop complications. pt with pain at hip. no cp or sob. no palpit no leg swelling - Current Medication List Current Medications: Active Medications Acetaminophen (Tylenol -) 650 mg PO Q4H PRN PRN Reason: PAIN LEVEL 1 - 3 Atorvastatin Calcium (Lipitor -) 10 mg PO HS [facility] Docusate Sodium (Colace -) 300 mg PO HS [facility] Last Admin: 10/13/18 21:11 Dose: 300 mg Enoxaparin Sodium (Lovenox -) 40 mg SQ DAILY [facility] Last Admin: 10/14/18 10:21 Dose: 40 mg Lactated Ringer's (Lactated Ringers Solution) 1,000 mls @ 75 mls/hr IV ASDIR [facility] Last Admin: 10/14/18 01:46 Dose: 75 mls/hr Insulin Aspart (Novolog Vial Sliding Scale -) 1 vial SQ [facility]; Protocol Last Admin: 10/14/18 11:41 Dose: 4 unit Insulin Detemir (Levemir Vial) 25 units SQ AM [facility] Last Admin: 10/14/18 06:33 Dose: 25 unit Losartan Potassium (Cozaar -) 100 mg PO DAILY [facility] Last Admin: 10/14/18 10:18 Dose: 100 mg Meclizine HCl (Antivert -) 25 mg PO Q8H PRN PRN Reason: VERTIGO Ondansetron HCl (Zofran Injection) 4 mg IVPUSH Q6H PRN PRN Reason: NAUSEA AND/OR VOMITING Oxycodone HCl (Roxicodone -) 5 mg PO Q6H PRN PRN Reason: PAIN LEVEL 7 - 10 Last Admin: 10/14/18 10:19 Dose: 5 mg Pantoprazole Sodium (Protonix -) 40 mg PO BID [facility] Last Admin: 10/14/18 10:19 Dose: 40 mg Ranolazine (Ranexa -) 500 mg PO BID [facility] Last Admin: 10/14/18 10:21 Dose: 500 mg Tamsulosin HCl (Flomax -) 0.4 mg PO DAILY@0830 [facility] Last Admin: 10/14/18 10:18 Dose: 0.4 mg Tramadol HCl (Ultram -) 50 mg PO Q6H PRN PRN Reason: PAIN LEVEL 4 - 6 - Objective Vital Signs: Vital Signs Temperature 99.1 F 10/14/18 06:00 Pulse Rate 69 10/14/18 06:00 Respiratory Rate 20 10/14/18 06:00 Blood Pressure 105/51 L 10/14/18 06:00 O2 Sat by Pulse Oximetry (%) 97 10/13/18 21:00 Constitutional: Yes: Well Nourished, No Distress, Calm Cardiovascular: Yes: Regular Rate and Rhythm, S1, S2. No: Gallop, Murmur Respiratory: Yes: Regular, CTA Bilaterally. No: Accessory Muscle Use, Rales, Wheezes Extremities: No: Cold Edema: No Neurological: Yes: Alert, Oriented Psychiatric: No: Agitated Labs: CBC, BMP 10/14/18 07:00 10/14/18 07:00 INR, PTT INR 1.06 (0.83-1.09) 10/11/18 12:15 Assessment/Plan ECG: A-p/V-s. RBBB/LAFB. no path q's, no ST-T (no change vs prior CXR: clear lungs/pleura Stress MPI 04/2018 (jannet): no ST changes. normal perfusion. normal LVEF Stress MPI 2016: Baseline RBBB. No further EKG changes. Small subtle fixed inferoapical defect. Nl wall motion. findings c/w soft tissue attenuation. Nl EF. Echo 2016: nl lv/rv, no sig valve path, borderline ao root dil, rosa [facility] 2013 ("sob and chest tightness, relieved by NTG"): EDP 18, EF 60%; patent stents pLAD and mLAD, and patent PTCA site of D1; diffuse nonobstructive dz large LCX/OM1/LPL/LPDA (Left-dominant system); nonobstr dz small RCA [facility] 2012 (for chest pain): all patent incl unchanged nonobstr CAD as above [facility] 2008 ("chest pain with stress test + LAD/diag territory ischemia"): D1 stenosis (jailed by stent)--PTCA done; remainder unchanged [facility] 2007 (indication "symptoms with anterolateral ischemia on MPI"): Cypher CASSIE to pLAD, PTCA of D1 (mid LAD stent patent) [facility] 2005 (indication "angina and positive stress test"): Cypher CASSIE x2 to pLAD and mLAD; residual nonobstr dz in D1 and diffusely in LCX system, severe/ diffuse dz small RCA s/p mechanical fall with femur frx: -tripped over his walker at home -s/p uncomplicated gamma nail -tx per ortho cad s/p pci: -pt of dr canales (we are covering for him) -pt has hx of chronic intermittent angina (nitro-sensitive) thought to be 2/2 small vessel dz with mult caths showing no obstructive dz for these sx's (2012, 2013)--treated with ranexa -no angina in long time per pt -mibi 04/2018 no ischemia -ASA, statin per home regimen -not on BB per home list--same plan HTN: -bp controlled -continue home meds DM on insulin: -per dr sheppard ppm: -routine outpt checks with dr canales as doing h/o GIB 2017 (duodenal ulcer s/p cauterization): -ulcer thought to be due to nsaid use -was on ASA only for remote PCIs at that time--back on this now -H/H normal
--- NOTE | 2018-10-14 12:47 | PN ---
Progress Note, Physician Chief Complaint: S/p Fall R femur fracture S/p R IM gamma nail History of Present Illness: Previous notes and events reviewed awake and alert NAD denies complaints of RLE pain, chest pain, SOB - Current Medication List Current Medications: Active Medications Acetaminophen (Tylenol -) 650 mg PO Q4H PRN PRN Reason: PAIN LEVEL 1 - 3 Atorvastatin Calcium (Lipitor -) 10 mg PO HS [facility] Docusate Sodium (Colace -) 300 mg PO HS [facility] Last Admin: 10/13/18 21:11 Dose: 300 mg Enoxaparin Sodium (Lovenox -) 40 mg SQ DAILY [facility] Last Admin: 10/14/18 10:21 Dose: 40 mg Lactated Ringer's (Lactated Ringers Solution) 1,000 mls @ 75 mls/hr IV ASDIR [facility] Last Admin: 10/14/18 01:46 Dose: 75 mls/hr Insulin Aspart (Novolog Vial Sliding Scale -) 1 vial SQ ACHS [facility]; Protocol Last Admin: 10/14/18 11:41 Dose: 4 unit Insulin Detemir (Levemir Vial) 25 units SQ AM [facility] Last Admin: 10/14/18 06:33 Dose: 25 unit Losartan Potassium (Cozaar -) 100 mg PO DAILY [facility] Last Admin: 10/14/18 10:18 Dose: 100 mg Meclizine HCl (Antivert -) 25 mg PO Q8H PRN PRN Reason: VERTIGO Ondansetron HCl (Zofran Injection) 4 mg IVPUSH Q6H PRN PRN Reason: NAUSEA AND/OR VOMITING Oxycodone HCl (Roxicodone -) 5 mg PO Q6H PRN PRN Reason: PAIN LEVEL 7 - 10 Last Admin: 10/14/18 10:19 Dose: 5 mg Pantoprazole Sodium (Protonix -) 40 mg PO BID [facility] Last Admin: 10/14/18 10:19 Dose: 40 mg Ranolazine (Ranexa -) 500 mg PO BID [facility] Last Admin: 10/14/18 10:21 Dose: 500 mg Tamsulosin HCl (Flomax -) 0.4 mg PO DAILY@0830 [facility] Last Admin: 10/14/18 10:18 Dose: 0.4 mg Tramadol HCl (Ultram -) 50 mg PO Q6H PRN PRN Reason: PAIN LEVEL 4 - 6 - Objective Vital Signs: Vital Signs Temperature 99.1 F 10/14/18 06:00 Pulse Rate 69 10/14/18 06:00 Respiratory Rate 20 10/14/18 06:00 Blood Pressure 105/51 L 10/14/18 06:00 O2 Sat by Pulse Oximetry (%) 97 10/13/18 21:00 Constitutional: Yes: No Distress, Calm Eyes: Yes: Conjunctiva Clear HENT: Yes: Atraumatic Cardiovascular: Yes: Regular Rate and Rhythm Respiratory: Yes: Regular, CTA Bilaterally Gastrointestinal: Yes: Normal Bowel Sounds, Soft, Other (non tender) Musculoskeletal: Yes: Muscle Weakness Extremities: Yes: WNL Wound/Incision: Yes: Dressing Dry and Intact Neurological: Yes: Alert, Oriented Psychiatric: Yes: Alert, Oriented Labs: CBC, BMP 10/14/18 07:00 10/14/18 07:00 INR, PTT INR 1.06 (0.83-1.09) 10/11/18 12:15 - ....Imaging X-ray: Report Reviewed Problem List - Problems (1) Right femoral fracture Assessment/Plan: -ortho on board -POD #1 s/p R IM gamma nail -PT -pain management -pending SNF for rehab on discharge Code(s): S72.91XA - UNSP FRACTURE OF RIGHT FEMUR, INIT FOR CLOS FX (2) Diabetes Assessment/Plan: -BGM ACHS -diabetic diet -continue with Levemer and ISS -HgA1c 8.4% -endo on board Code(s): E11.9 - TYPE 2 DIABETES MELLITUS WITHOUT COMPLICATIONS Qualifiers: Diabetes mellitus type: type 2 (3) Hypertension Assessment/Plan: -low Na diet -cardio on board -losartan Code(s): I10 - ESSENTIAL (PRIMARY) HYPERTENSION Assessment/Plan dvt ppx PT see problem list SNF discharge for rehab
[2018-10-14] MEDS: ACETAMINOPHEN 325 MG TABLET (FP) PO PRN (14:29)
[2018-10-14] MEDS ORDERED: POLYETHYLENE GLYCOL 3350 119 GM BTL PO PRN (20:15)
[2018-10-14] MEDS: ATORVASTATIN CA 10 MG TABLET (FP) PO SCH (21:30)
[2018-10-14] MEDS: SENNOSIDES 8.6MG TABLET (FP) PO SCH (21:30)
[2018-10-14] MEDS: DOCUSATE SODIUM 100 MG CAPSULE (FP) PO SCH (21:31)
[2018-10-15] MEDS: INSULIN (LEVEMIR) 100 UNITS/ML UNITS SQ SCH (06:14)
[2018-10-15] MEDS: INSULIN SLIDING SCALE (NOVOLOG) 1 VIAL SQ SCH ×4 (06:19→21:30)
[2018-10-15 07:44] LABS: HEMATOCRIT 24.9 % (35.4-49); HEMOGLOBIN 9.1 GM/dL (11.7-16.9); MCH 34.6 pg (25.7-33.7); MCHC 36.6 g/dl (32.0-35.9); MEAN CELL VOLUME 94.4 fl (80-96); MEAN PLT VOLUME 9.3 fl (7.5-11.1); PLATELET COUNT 129 K/MM3 (134-434); RBC 2.63 M/mm3 (4.00-5.60); RDW 13.3 % (11.9-15.9); WHITE BLOOD COUNT 5.4 K/mm3 (4.0-10.0)
[2018-10-15 08:25] LABS: ALBUMIN 2.3 g/dl (3.4-5.0); ALK PHOS 57 U/L (45-117); ANION GAP 3 MMOL/L (8-16); BILIRUBIN,TOTAL 1.4 mg/dL (0.2-1); BLOOD UREA NITROGEN 31 mg/dL (7-18); CALCIUM 7.9 mg/dL (8.5-10.1); CHLORIDE 102 mmol/L (98-107); CO2 28 mmol/L (21-32); CREATININE 1.3 mg/dL (0.55-1.3); GLUCOSE,RANDOM 181 mg/dL (74-106); POTASSIUM 5.1 mmol/L (3.5-5.1); SGOT/AST 42 U/L (15-37); SGPT/ALT 11 U/L (13-61); SODIUM 133 mmol/L (136-145); TOT PROT 4.9 g/dl (6.4-8.2)
--- NOTE | 2018-10-15 08:39 | PN ---
Progress Note (short form) - Note Progress Note: Ortho Pt seen and examined s/p right IM gamma nail pod #2 Selected Entries 10/15/18 05:47 Temperature 99.3 F Pulse Rate 77 Respiratory 20 Rate Blood Pressure 122/58 L Laboratory Tests 10/15/18 07:00 WBC 5.4 Hgb 9.1 L Hct 24.9 L Plt Count 129 L dressing c/d/i, calf soft, nt nvi a/p PT wbat dvt ppx pain control d/c planning
[2018-10-15] MEDS: ENOXAPARIN NA (PORCINE) 40 MG/0.4 ML DISP.SYRIN SQ SCH (10:10)
[2018-10-15] MEDS: oxyCODONE HCL 5 MG TABLET PO PRN (10:14)
[2018-10-15] MEDS: PANTOPRAZOLE 40 MG TABLET (FP) PO SCH ×2 (10:14→21:25)
[2018-10-15] MEDS: MAGNESIUM HYDROX 2400MG/30ML ORAL SUSPENSION 30 ML CUP PO PRN (10:14)
[2018-10-15] MEDS: TAMSULOSIN HCL 0.4 MG CAP PO SCH (10:14)
[2018-10-15] MEDS: LOSARTAN POTASSIUM 50 MG TABLET (FP) PO SCH (10:14)
[2018-10-15] MEDS: RANOLAZINE E.R. 500 MG TABLET (FP) PO SCH ×2 (10:20→21:25)
[2018-10-15] MEDS ORDERED: INSULIN (NOVOLOG) ASPART 100 UNITS/ML 10ML VIAL ONE (11:42)
--- NOTE | 2018-10-15 13:19 | PN ---
Progress Note, Physician Chief Complaint: S/p Fall R femur fracture S/p R IM gamma nail History of Present Illness: Previous notes and events reviewed awake and alert NAD denies complaints of RLE pain, chest pain, SOB c/o slight dizziness with PT when attempting to ambulate - Current Medication List Current Medications: Active Medications Acetaminophen (Tylenol -) 650 mg PO Q4H PRN PRN Reason: PAIN LEVEL 1 - 3 Last Admin: 10/14/18 14:29 Dose: 650 mg Atorvastatin Calcium (Lipitor -) 10 mg PO [facility] Last Admin: 10/14/18 21:30 Dose: 10 mg Docusate Sodium (Colace -) 300 mg PO [facility] Last Admin: 10/14/18 21:31 Dose: 300 mg Enoxaparin Sodium (Lovenox -) 40 mg SQ DAILY [facility] Last Admin: 10/15/18 10:10 Dose: 40 mg Insulin Aspart (Novolog Vial Sliding Scale -) 1 vial SQ [facility]; Protocol Last Admin: 10/15/18 11:46 Dose: 6 unit Insulin Detemir (Levemir Vial) 25 units SQ AM [facility] Last Admin: 10/15/18 06:14 Dose: 25 unit Losartan Potassium (Cozaar -) 100 mg PO DAILY [facility] Last Admin: 10/15/18 10:14 Dose: 100 mg Magnesium Hydroxide (Milk Of Magnesia -) 30 ml PO Q24H PRN PRN Reason: CONSTIPATION Last Admin: 10/15/18 10:14 Dose: 30 ml Meclizine HCl (Antivert -) 25 mg PO Q8H PRN PRN Reason: VERTIGO Ondansetron HCl (Zofran Injection) 4 mg IVPUSH Q6H PRN PRN Reason: NAUSEA AND/OR VOMITING Last Admin: 10/14/18 14:15 Dose: 4 mg Oxycodone HCl (Roxicodone -) 5 mg PO Q6H PRN PRN Reason: PAIN LEVEL 7 - 10 Last Admin: 10/15/18 10:14 Dose: 5 mg Pantoprazole Sodium (Protonix -) 40 mg PO BID [facility] Last Admin: 10/15/18 10:14 Dose: 40 mg Polyethylene Glycol (Miralax (For Daily Use) -) 17 gm PO DAILY PRN PRN Reason: CONSTIPATION Ranolazine (Ranexa -) 500 mg PO BID [facility] Last Admin: 10/15/18 10:20 Dose: 500 mg Senna (Senna -) 2 tab PO HS [facility] Last Admin: 10/14/18 21:30 Dose: 2 tab Tamsulosin HCl (Flomax -) 0.4 mg PO DAILY@0830 [facility] Last Admin: 10/15/18 10:14 Dose: 0.4 mg Tramadol HCl (Ultram -) 50 mg PO Q6H PRN PRN Reason: PAIN LEVEL 4 - 6 - Objective Vital Signs: Vital Signs Temperature 99.3 F 10/15/18 05:47 Pulse Rate 77 10/15/18 05:47 Respiratory Rate 20 10/15/18 05:47 Blood Pressure 122/58 L 10/15/18 05:47 O2 Sat by Pulse Oximetry (%) 98 10/14/18 21:00 Constitutional: Yes: Well Nourished, No Distress, Calm Eyes: Yes: Conjunctiva Clear HENT: Yes: Atraumatic Cardiovascular: Yes: Regular Rate and Rhythm Respiratory: Yes: Regular, CTA Bilaterally Gastrointestinal: Yes: Normal Bowel Sounds, Soft, Other (non tender) Musculoskeletal: Yes: Muscle Weakness Extremities: Yes: WNL Edema: No Wound/Incision: Yes: Dressing Dry and Intact Neurological: Yes: Alert, Oriented Psychiatric: Yes: Alert, Oriented Labs: CBC, BMP 10/15/18 07:00 10/15/18 07:00 INR, PTT INR 1.06 (0.83-1.09) 10/11/18 12:15 Microbiology 10/12/18 06:00 Urine - Urine Clean Catch Urine Culture - Final Contaminated: Please Repeat Problem List - Problems (1) Right femoral fracture Assessment/Plan: -ortho on board -POD #2 s/p R IM gamma nail -PT -pain management -pending SNF for rehab on discharge Code(s): S72.91XA - UNSP FRACTURE OF RIGHT FEMUR, INIT FOR CLOS FX (2) Diabetes Assessment/Plan: -BGM ACHS -diabetic diet -continue with Levemer and ISS -HgA1c 8.4% -endo on board Code(s): E11.9 - TYPE 2 DIABETES MELLITUS WITHOUT COMPLICATIONS Qualifiers: Diabetes mellitus type: type 2 (3) Hypertension Assessment/Plan: -low Na diet -cardio on board -losartan Code(s): I10 - ESSENTIAL (PRIMARY) HYPERTENSION (4) Hypotension Assessment/Plan: -hold losartan until BP improves -NS at 150cc x 3hrs then continue with NS at 100cc/hr for 24hrs Code(s): I95.9 - HYPOTENSION, UNSPECIFIED (5) Drop in hemoglobin Assessment/Plan: -continue to monitor labs Code(s): R71.0 - PRECIPITOUS DROP IN HEMATOCRIT Assessment/Plan dvt ppx PT see problem list SNF discharge for rehab
[2018-10-15] MEDS ORDERED: SODIUM CHLORIDE 1,000 ML IV SCH (16:00)
--- NOTE | 2018-10-15 18:16 | PN ---
Progress Note, Physician Chief Complaint: dizzy, low bp History of Present Illness: attempting PT today when felt dizzy/LH. syst BP 80s then. put back in bed. i spoke with DRIVER LICENSE TECHNICIAN Bonnie--rec'd start IVF (150cc/hr x 3 hrs, then 100/hr). creat trended up slightly postop, though pt states he is drinking lots of water all day. receiving oxy for pain he denies any cp developed phlegmy cough SINCE HERE IN THE HOSPITAL. feels like when he had PNA in july no sob just the cough no palpitations H/H today down to 9.1 from 10.0 yest - Current Medication List Current Medications: Active Medications Acetaminophen (Tylenol -) 650 mg PO Q4H PRN PRN Reason: PAIN LEVEL 1 - 3 Last Admin: 10/14/18 14:29 Dose: 650 mg Atorvastatin Calcium (Lipitor -) 10 mg PO HS [facility] Last Admin: 10/14/18 21:30 Dose: 10 mg Docusate Sodium (Colace -) 300 mg PO [facility] Last Admin: 10/14/18 21:31 Dose: 300 mg Enoxaparin Sodium (Lovenox -) 40 mg SQ DAILY [facility] Last Admin: 10/15/18 10:10 Dose: 40 mg Sodium Chloride (Normal Saline -) 1,000 mls @ 150 mls/hr IV ASDIR [facility] Stop: 10/15/18 19:00 Last Admin: 10/15/18 16:18 Dose: 150 mls/hr Sodium Chloride (Normal Saline -) 1,000 mls @ 100 mls/hr IV ASDIR [facility] Stop: 10/16/18 19:00 Insulin Aspart (Novolog Vial Sliding Scale -) 1 vial SQ ACHS [facility]; Protocol Last Admin: 10/15/18 16:42 Dose: 4 unit Insulin Detemir (Levemir Vial) 25 units SQ AM [facility] Last Admin: 10/15/18 06:14 Dose: 25 unit Losartan Potassium (Cozaar -) 100 mg PO DAILY [facility] Last Admin: 10/15/18 10:14 Dose: 100 mg Magnesium Hydroxide (Milk Of Magnesia -) 30 ml PO Q24H PRN PRN Reason: CONSTIPATION Last Admin: 10/15/18 10:14 Dose: 30 ml Meclizine HCl (Antivert -) 25 mg PO Q8H PRN PRN Reason: VERTIGO Ondansetron HCl (Zofran Injection) 4 mg IVPUSH Q6H PRN PRN Reason: NAUSEA AND/OR VOMITING Last Admin: 10/14/18 14:15 Dose: 4 mg Oxycodone HCl (Roxicodone -) 5 mg PO Q6H PRN PRN Reason: PAIN LEVEL 7 - 10 Last Admin: 10/15/18 10:14 Dose: 5 mg Pantoprazole Sodium (Protonix -) 40 mg PO BID [facility] Last Admin: 10/15/18 10:14 Dose: 40 mg Polyethylene Glycol (Miralax (For Daily Use) -) 17 gm PO DAILY PRN PRN Reason: CONSTIPATION Ranolazine (Ranexa -) 500 mg PO BID [facility] Last Admin: 10/15/18 10:20 Dose: 500 mg Senna (Senna -) 2 tab PO HS [facility] Last Admin: 10/14/18 21:30 Dose: 2 tab Tamsulosin HCl (Flomax -) 0.4 mg PO DAILY@0830 [facility] Last Admin: 10/15/18 10:14 Dose: 0.4 mg Tramadol HCl (Ultram -) 50 mg PO Q6H PRN PRN Reason: PAIN LEVEL 4 - 6 - Objective Vital Signs: Vital Signs Temperature 98.1 F 10/15/18 10:00 Pulse Rate 90 10/15/18 14:09 Respiratory Rate 18 10/15/18 14:09 Blood Pressure 88/44 L 10/15/18 14:09 O2 Sat by Pulse Oximetry (%) 98 10/15/18 09:00 Constitutional: Yes: Well Nourished, No Distress, Calm Cardiovascular: Yes: Regular Rate and Rhythm, S1, S2. No: Gallop, Murmur Respiratory: Yes: Regular, CTA Bilaterally. No: Accessory Muscle Use, Rales, Wheezes Extremities: No: Cold Edema: No (feet) Neurological: Yes: Alert, Oriented Psychiatric: No: Agitated Labs: CBC, BMP 10/15/18 07:00 10/15/18 07:00 INR, PTT INR 1.06 (0.83-1.09) 10/11/18 12:15 Assessment/Plan ECG: A-p/V-s. RBBB/LAFB. no path q's, no ST-T (no change vs prior CXR: clear lungs/pleura Stress MPI 04/2018 (jannet): no ST changes. normal perfusion. normal LVEF Stress MPI 2016: Baseline RBBB. No further EKG changes. Small subtle fixed inferoapical defect. Nl wall motion. findings c/w soft tissue attenuation. Nl EF. Echo 2016: nl lv/rv, no sig valve path, borderline ao root dil, rosa [facility] 2013 ("sob and chest tightness, relieved by NTG"): EDP 18, EF 60%; patent stents pLAD and mLAD, and patent PTCA site of D1; diffuse nonobstructive dz large LCX/OM1/LPL/LPDA (Left-dominant system); nonobstr dz small RCA [facility] 2012 (for chest pain): all patent incl unchanged nonobstr CAD as above [facility] 2008 ("chest pain with stress test + LAD/diag territory ischemia"): D1 stenosis (jailed by stent)--PTCA done; remainder unchanged [facility] 2007 (indication "symptoms with anterolateral ischemia on MPI"): Cypher CASSIE to pLAD, PTCA of D1 (mid LAD stent patent) [facility] 2005 (indication "angina and positive stress test"): Cypher CASSIE x2 to pLAD and mLAD; residual nonobstr dz in D1 and diffusely in LCX system, severe/ diffuse dz small RCA hypotension: -suspect intravasc vol depleted postop, with rising bun/creat--likely not able to keep up despite efforts with PO -started IVF and BP has come up--currently 100s systolic per WALDO llanos report -afebrile thus far. he is coughing with phlegm feeling in chest, lungs clear-- check CXR -does not appear actively bleeding based on H/H trend--routine postop monitoring per pmd, ortho -not concerning for ACS given absence of his typical angina sx's--will check troponin -cont IVF as doing s/p mechanical fall with femur frx: -tripped over his walker at home -s/p uncomplicated gamma nail -tx per ortho cad s/p pci: -pt of dr canales (we are covering for him) -pt has hx of chronic intermittent angina (nitro-sensitive) thought to be 2/2 small vessel dz with mult caths showing no obstructive dz for these sx's (2012, 2013)--treated with ranexa -no angina in long time per pt -mibi 04/2018 no ischemia -ASA, statin per home regimen -not on BB per home list--same plan HTN: -bp controlled -continue home meds DM on insulin: -per dr sheppard ppm: -routine outpt checks with dr canales as doing h/o GIB 2017 (duodenal ulcer s/p cauterization): -ulcer thought to be due to nsaid use -was on ASA only for remote PCIs at that time--back on this now -H/H normal
[2018-10-15] MEDS: SODIUM CHLORIDE 1,000 ML IV SCH (19:00)
[2018-10-15] MEDS: ATORVASTATIN CA 10 MG TABLET (FP) PO SCH (21:25)
[2018-10-15] MEDS: SENNOSIDES 8.6MG TABLET (FP) PO SCH (21:25)
[2018-10-15] MEDS: DOCUSATE SODIUM 100 MG CAPSULE (FP) PO SCH (21:25)
[2018-10-16 06:19] VITALS: PULSE 78
[2018-10-16] MEDS: INSULIN (LEVEMIR) 100 UNITS/ML UNITS SQ SCH (06:46)
[2018-10-16] MEDS: INSULIN SLIDING SCALE (NOVOLOG) 1 VIAL SQ SCH ×2 (06:47→11:22)
[2018-10-16 08:00] LABS: HEMATOCRIT 24.6 % (35.4-49); MCHC 36.5 g/dl (32.0-35.9); MEAN CELL VOLUME 93.1 fl (80-96); MEAN PLT VOLUME 8.9 fl (7.5-11.1); PLATELET COUNT 151 K/MM3 (134-434); RBC 2.64 M/mm3 (4.00-5.60); RDW 13.4 % (11.9-15.9); WHITE BLOOD COUNT 4.7 K/mm3 (4.0-10.0)
[2018-10-16 08:26] LABS: ALBUMIN 2.4 g/dl (3.4-5.0); ALK PHOS 65 U/L (45-117); ANION GAP 5 MMOL/L (8-16); BILIRUBIN,TOTAL 1.9 mg/dL (0.2-1); BLOOD UREA NITROGEN 24 mg/dL (7-18); CALCIUM 7.9 mg/dL (8.5-10.1); CHLORIDE 102 mmol/L (98-107); CO2 26 mmol/L (21-32); CREATININE 1.2 mg/dL (0.55-1.3); GLUCOSE,RANDOM 187 mg/dL (74-106); POTASSIUM 4.4 mmol/L (3.5-5.1); SGOT/AST 42 U/L (15-37); SGPT/ALT 13 U/L (13-61); SODIUM 133 mmol/L (136-145); TOT PROT 5.1 g/dl (6.4-8.2)
[2018-10-16] MEDS ORDERED: PT OWN MED DRAWER 7, Y5N ONE (10:21)
[2018-10-16] MEDS: RANOLAZINE E.R. 500 MG TABLET (FP) PO SCH (10:36)
[2018-10-16] MEDS: ENOXAPARIN NA (PORCINE) 40 MG/0.4 ML DISP.SYRIN SQ SCH (10:36)
[2018-10-16] MEDS: TAMSULOSIN HCL 0.4 MG CAP PO SCH (10:36)
[2018-10-16] MEDS: PANTOPRAZOLE 40 MG TABLET (FP) PO SCH (10:36)
[2018-10-16] MEDS: MAGNESIUM HYDROX 2400MG/30ML ORAL SUSPENSION 30 ML CUP PO PRN (10:39)
[2018-10-16] MEDS ORDERED: INSULIN (NOVOLOG) ASPART 100 UNITS/ML 10ML VIAL ONE (11:20)
[2018-10-16] MEDS: SODIUM CHLORIDE 1,000 ML IV SCH (11:24)
--- NOTE | 2018-10-16 12:08 | PN ---
Progress Note (short form) - Note Progress Note: Ortho Pt seen and examined s/p right IM gamma nail pod #3 Selected Entries 10/16/18 06:00 Temperature 98.2 F Pulse Rate 78 Respiratory 20 Rate Blood Pressure 107/62 Laboratory Tests 10/16/18 07:30 WBC 4.7 Hgb 9.0 L Hct 24.6 L Plt Count 151 dressing c/d/i, calf soft, nt nvi a/p PT wbat dvt ppx pain control d/c planning
--- NOTE | 2018-10-16 12:15 | DS ---
Physical Examination Vital Signs: Vital Signs Temperature 98.2 F 10/16/18 06:00 Pulse Rate 78 10/16/18 06:00 Respiratory Rate 20 10/16/18 06:00 Blood Pressure 107/62 10/16/18 06:00 O2 Sat by Pulse Oximetry (%) 98 10/15/18 22:00 Findings/Remarks: Patient is an 83 y/o male with past medical history of pacemaker, HTN, dyslipidemia, diabetes. Patient presented to ER with complaints of pain to R hip and upper leg s/p mechanical fall when attempting to utilize walker. Patient states he hit the back of his head but denies LOC. R femur xray shows arthritic changes with an acute fracture of the proximal shaft of the femur with lateral angulationat the fracture site. Followed by orthopedics while in patient and underwent right IM gamma nail placement. Constitutional: Yes: Well Nourished, No Distress, Calm Eyes: Yes: Conjunctiva Clear HENT: Yes: Atraumatic Neck: Yes: Supple Cardiovascular: Yes: Regular Rate and Rhythm Respiratory: Yes: Regular, CTA Bilaterally Gastrointestinal: Yes: Normal Bowel Sounds, Soft Musculoskeletal: Yes: Muscle Weakness Extremities: Yes: WNL Wound/Incision: Yes: Dressing Dry and Intact Neurological: Yes: Alert, Oriented Psychiatric: Yes: Alert, Oriented Labs: CBC, BMP 10/16/18 07:30 10/16/18 07:30 Discharge Summary Reason For Visit: FRACTURE OF FEMUR Current Active Problems Hypotension (Acute) Right femoral fracture (Acute) Hospital Course: see progress notes Laboratory Tests 10/11/18 10/11/18 10/11/18 12:15 12:15 12:15 WBC 9.5 RBC 3.96 L Hgb 13.4 Hct 37.3 MCV 94.1 MCH 33.7 MCHC 35.8 RDW 13.2 Plt Count 130 L MPV 9.6 Absolute Neuts (auto) 8.2 H Neutrophils % 86.2 H Lymphocytes % 8.2 D Monocytes % 4.4 Eosinophils % 0.8 Basophils % 0.4 Nucleated RBC % 0 PT with INR 12.50 INR 1.06 Sodium 137 Potassium 4.7 Chloride 106 Carbon Dioxide 26 Anion Gap 5 L BUN 21 H Creatinine 1.1 Creat Clearance w eGFR 63.93 POC Glucometer Random Glucose 214 H Hemoglobin A1c % Calcium 8.3 L Total Bilirubin 1.5 H AST 17 ALT 21 Alkaline Phosphatase 62 Troponin I Total Protein 5.9 L Albumin 3.2 L Urine Color Urine Appearance Urine pH Ur Specific [place] Urine Protein Urine Glucose (UA) Urine Ketones Urine Blood Urine Nitrite Urine Bilirubin Urine Urobilinogen Ur Leukocyte Esterase Blood Type Antibody Screen 10/11/18 10/12/18 10/12/18 12:15 06:00 06:22 WBC RBC Hgb Hct MCV MCH MCHC RDW Plt Count MPV Absolute Neuts (auto) Neutrophils % Lymphocytes % Monocytes % Eosinophils % Basophils % Nucleated RBC % PT with INR INR Sodium Potassium Chloride Carbon Dioxide Anion Gap BUN Creatinine Creat Clearance w eGFR POC Glucometer 199 Random Glucose Hemoglobin A1c % Calcium Total Bilirubin AST ALT Alkaline Phosphatase Troponin I Total Protein Albumin Urine Color Dkyellow Urine Appearance Clear Urine pH 5.0 Ur Specific [place] 1.020 Urine Protein Negative Urine Glucose (UA) 3+ H Urine Ketones Negative Urine Blood Negative Urine Nitrite Negative Urine Bilirubin Negative Urine Urobilinogen Negative Ur Leukocyte Esterase Negative Blood Type O POSITIVE Antibody Screen Negative 10/12/18 10/12/18 10/12/18 07:10 07:10 07:30 WBC 5.9 RBC 3.54 L Hgb 11.9 Hct 33.2 L MCV 93.6 MCH 33.5 MCHC 35.8 RDW 13.3 Plt Count 132 L MPV 9.3 Absolute Neuts (auto) 4.1 Neutrophils % 68.4 D Lymphocytes % 19.1 D Monocytes % 10.0 D Eosinophils % 2.0 D Basophils % 0.5 Nucleated RBC % 0 PT with INR INR Sodium 136 Potassium 4.7 Chloride 104 Carbon Dioxide 27 Anion Gap 5 L BUN 26 H Creatinine 1.2 Creat Clearance w eGFR 57.82 POC Glucometer Random Glucose 191 H Hemoglobin A1c % 8.4 H Calcium 8.1 L Total Bilirubin 1.9 H AST 32 ALT 20 Alkaline Phosphatase 61 Troponin I Total Protein 5.7 L Albumin 3.1 L Urine Color Urine Appearance Urine pH Ur Specific [place] Urine Protein Urine Glucose (UA) Urine Ketones Urine Blood Urine Nitrite Urine Bilirubin Urine Urobilinogen Ur Leukocyte Esterase Blood Type Antibody Screen 10/12/18 10/12/18 10/12/18 11:34 17:22 21:10 WBC RBC Hgb Hct MCV MCH MCHC RDW Plt Count MPV Absolute Neuts (auto) Neutrophils % Lymphocytes % Monocytes % Eosinophils % Basophils % Nucleated RBC % PT with INR INR Sodium Potassium Chloride Carbon Dioxide Anion Gap BUN Creatinine Creat Clearance w eGFR POC Glucometer 206 221 258 Random Glucose Hemoglobin A1c % Calcium Total Bilirubin AST ALT Alkaline Phosphatase Troponin I Total Protein Albumin Urine Color Urine Appearance Urine pH Ur Specific [place] Urine Protein Urine Glucose (UA) Urine Ketones Urine Blood Urine Nitrite Urine Bilirubin Urine Urobilinogen Ur Leukocyte Esterase Blood Type Antibody Screen 10/13/18 10/13/18 10/13/18 06:05 12:32 17:21 WBC RBC Hgb Hct MCV MCH MCHC RDW Plt Count MPV Absolute Neuts (auto) Neutrophils % Lymphocytes % Monocytes % Eosinophils % Basophils % Nucleated RBC % PT with INR INR Sodium Potassium Chloride Carbon Dioxide Anion Gap BUN Creatinine Creat Clearance w eGFR POC Glucometer 240 247 312 Random Glucose Hemoglobin A1c % Calcium Total Bilirubin AST ALT Alkaline Phosphatase Troponin I Total Protein Albumin Urine Color Urine Appearance Urine pH Ur Specific [place] Urine Protein Urine Glucose (UA) Urine Ketones Urine Blood Urine Nitrite Urine Bilirubin Urine Urobilinogen Ur Leukocyte Esterase Blood Type Antibody Screen 10/13/18 10/14/18 10/14/18 20:24 06:32 07:00 WBC 5.3 RBC 2.89 L Hgb 10.0 L Hct 26.8 L D MCV 92.8 MCH 34.5 H MCHC 37.2 H RDW 13.2 Plt Count 109 L MPV 9.1 Absolute Neuts (auto) Neutrophils % Lymphocytes % Monocytes % Eosinophils % Basophils % Nucleated RBC % PT with INR INR Sodium Potassium Chloride Carbon Dioxide Anion Gap BUN Creatinine Creat Clearance w eGFR POC Glucometer 273 220 Random Glucose Hemoglobin A1c % Calcium Total Bilirubin AST ALT Alkaline Phosphatase Troponin I Total Protein Albumin Urine Color Urine Appearance Urine pH Ur Specific [place] Urine Protein Urine Glucose (UA) Urine Ketones Urine Blood Urine Nitrite Urine Bilirubin Urine Urobilinogen Ur Leukocyte Esterase Blood Type Antibody Screen 10/14/18 10/14/18 10/14/18 07:00 11:33 16:59 WBC RBC Hgb Hct MCV MCH MCHC RDW Plt Count MPV Absolute Neuts (auto) Neutrophils % Lymphocytes % Monocytes % Eosinophils % Basophils % Nucleated RBC % PT with INR INR Sodium 132 L Potassium 4.3 Chloride 100 Carbon Dioxide 26 Anion Gap 6 L BUN 28 H Creatinine 1.3 Creat Clearance w eGFR 52.72 POC Glucometer 227 247 Random Glucose 204 H Hemoglobin A1c % Calcium 7.6 L Total Bilirubin AST ALT Alkaline Phosphatase Troponin I Total Protein Albumin Urine Color Urine Appearance Urine pH Ur Specific [place] Urine Protein Urine Glucose (UA) Urine Ketones Urine Blood Urine Nitrite Urine Bilirubin Urine Urobilinogen Ur Leukocyte Esterase Blood Type Antibody Screen 10/14/18 10/15/18 10/15/18 20:21 05:57 07:00 WBC 5.4 RBC 2.63 L Hgb 9.1 L Hct 24.9 L MCV 94.4 MCH 34.6 H MCHC 36.6 H RDW 13.3 Plt Count 129 L MPV 9.3 Absolute Neuts (auto) Neutrophils % Lymphocytes % Monocytes % Eosinophils % Basophils % Nucleated RBC % PT with INR INR Sodium Potassium Chloride Carbon Dioxide Anion Gap BUN Creatinine Creat Clearance w eGFR POC Glucometer 221 178 Random Glucose Hemoglobin A1c % Calcium Total Bilirubin AST ALT Alkaline Phosphatase Troponin I Total Protein Albumin Urine Color Urine Appearance Urine pH Ur Specific [place] Urine Protein Urine Glucose (UA) Urine Ketones Urine Blood Urine Nitrite Urine Bilirubin Urine Urobilinogen Ur Leukocyte Esterase Blood Type Antibody Screen 10/15/18 10/15/18 10/15/18 07:00 11:32 16:35 WBC RBC Hgb Hct MCV MCH MCHC RDW Plt Count MPV Absolute Neuts (auto) Neutrophils % Lymphocytes % Monocytes % Eosinophils % Basophils % Nucleated RBC % PT with INR INR Sodium 133 L Potassium 5.1 Chloride 102 Carbon Dioxide 28 Anion Gap 3 L BUN 31 H Creatinine 1.3 Creat Clearance w eGFR 52.72 POC Glucometer 267 236 Random Glucose 181 H Hemoglobin A1c % Calcium 7.9 L Total Bilirubin 1.4 H AST 42 H ALT 11 L Alkaline Phosphatase 57 Troponin I Total Protein 4.9 L Albumin 2.3 L Urine Color Urine Appearance Urine pH Ur Specific [place] Urine Protein Urine Glucose (UA) Urine Ketones Urine Blood Urine Nitrite Urine Bilirubin Urine Urobilinogen Ur Leukocyte Esterase Blood Type Antibody Screen 10/15/18 10/15/18 10/16/18 18:45 21:29 00:10 WBC RBC Hgb Hct MCV MCH MCHC RDW Plt Count MPV Absolute Neuts (auto) Neutrophils % Lymphocytes % Monocytes % Eosinophils % Basophils % Nucleated RBC % PT with INR INR Sodium Potassium Chloride Carbon Dioxide Anion Gap BUN Creatinine Creat Clearance w eGFR POC Glucometer 240 Random Glucose Hemoglobin A1c % Calcium Total Bilirubin AST ALT Alkaline Phosphatase Troponin I < 0.02 < 0.02 Total Protein Albumin Urine Color Urine Appearance Urine pH Ur Specific [place] Urine Protein Urine Glucose (UA) Urine Ketones Urine Blood Urine Nitrite Urine Bilirubin Urine Urobilinogen Ur Leukocyte Esterase Blood Type Antibody Screen 10/16/18 10/16/18 10/16/18 06:44 07:30 07:30 WBC 4.7 RBC 2.64 L Hgb 9.0 L Hct 24.6 L MCV 93.1 MCH 34.0 H MCHC 36.5 H RDW 13.4 Plt Count 151 MPV 8.9 Absolute Neuts (auto) Neutrophils % Lymphocytes % Monocytes % Eosinophils % Basophils % Nucleated RBC % PT with INR INR Sodium 133 L Potassium 4.4 Chloride 102 Carbon Dioxide 26 Anion Gap 5 L BUN 24 H Creatinine 1.2 Creat Clearance w eGFR 57.82 POC Glucometer 180 Random Glucose 187 H Hemoglobin A1c % Calcium 7.9 L Total Bilirubin 1.9 H AST 42 H ALT 13 Alkaline Phosphatase 65 Troponin I Total Protein 5.1 L Albumin 2.4 L Urine Color Urine Appearance Urine pH Ur Specific [place] Urine Protein Urine Glucose (UA) Urine Ketones Urine Blood Urine Nitrite Urine Bilirubin Urine Urobilinogen Ur Leukocyte Esterase Blood Type Antibody Screen 10/16/18 11:22 WBC RBC Hgb Hct MCV MCH MCHC RDW Plt Count MPV Absolute Neuts (auto) Neutrophils % Lymphocytes % Monocytes % Eosinophils % Basophils % Nucleated RBC % PT with INR INR Sodium Potassium Chloride Carbon Dioxide Anion Gap BUN Creatinine Creat Clearance w eGFR POC Glucometer 232 Random Glucose Hemoglobin A1c % Calcium Total Bilirubin AST ALT Alkaline Phosphatase Troponin I Total Protein Albumin Urine Color Urine Appearance Urine pH Ur Specific [place] Urine Protein Urine Glucose (UA) Urine Ketones Urine Blood Urine Nitrite Urine Bilirubin Urine Urobilinogen Ur Leukocyte Esterase Blood Type Antibody Screen Active Medications Generic Name Dose Route Start Last Admin Trade Name Keeganq PRN Reason Stop Dose Admin Acetaminophen 650 mg 10/13/18 10:18 10/14/18 14:29 Tylenol - PO 650 mg Q4H PRN Administration PAIN LEVEL 1 - 3 Atorvastatin Calcium 10 mg 10/14/18 22:00 10/15/18 21:25 Lipitor - PO 10 mg HS JORI Administration Docusate Sodium 300 mg 10/13/18 22:00 10/15/18 21:25 Colace - PO 300 mg HS JORI Administration Enoxaparin Sodium 40 mg 10/14/18 10:00 10/16/18 10:36 Lovenox - SQ 40 mg DAILY JORI Administration Sodium Chloride 1,000 mls @ 100 mls/hr 10/15/18 19:00 10/16/18 11:24 Normal Saline - IV 10/16/18 19:00 100 mls/hr ASDIR JORI Administration Insulin Aspart 1 vial 10/13/18 21:05 10/16/18 11:22 Novolog Vial Sliding Scale - SQ 4 units ACHS JORI Administration Protocol Insulin Detemir 25 units 10/14/18 07:00 10/16/18 06:46 Levemir Vial SQ 25 unit AM JORI Administration Losartan Potassium 100 mg 10/14/18 10:00 10/15/18 10:14 Cozaar - PO 100 mg DAILY JORI Administration Magnesium Hydroxide 30 ml 10/15/18 08:40 10/16/18 10:39 Milk Of Magnesia - PO 30 ml Q24H PRN Administration CONSTIPATION Meclizine HCl 25 mg 10/13/18 10:18 Antivert - PO Q8H PRN VERTIGO Ondansetron HCl 4 mg 10/13/18 10:13 10/14/18 14:15 Zofran Injection IVPUSH 4 mg Q6H PRN Administration NAUSEA AND/OR VOMITING Pantoprazole Sodium 40 mg 10/13/18 22:00 10/16/18 10:36 Protonix - PO 40 mg BID JORI Administration Polyethylene Glycol 17 gm 10/14/18 20:15 Miralax (For Daily Use) - PO DAILY PRN CONSTIPATION Ranolazine 500 mg 10/13/18 22:00 10/16/18 10:36 Ranexa - PO 500 mg BID JORI Administration Senna 2 tab 10/14/18 22:00 10/15/18 21:25 Senna - PO 2 tab HS JORI Administration Tamsulosin HCl 0.4 mg 10/14/18 08:30 10/16/18 10:36 Flomax - PO 0.4 mg DAILY@0830 JORI Administration Microbiology 10/12/18 06:00 Urine - Urine Clean Catch Urine Culture - Final Contaminated: Please Repeat Condition: Stable - Instructions Diet, Activity, Other Instructions: follow up with PMD follow up with Orthopedics continue with current medication as prescribed return to ER if severe chest pain, SOB, difficulty breathing, severe pain Referrals: Mau Rogers MD [Staff Physician] - Mateo Ohara MD [Primary Care Provider] - Disposition: ASSISTED FACILITY - Home Medications Comprehensive Discharge Medication List: Ambulatory Orders Meclizine HCl 25 mg PO TID PRN 07/09/16 Ranolazine [Ranexa -] 500 mg PO BID 07/09/16 Tamsulosin HCl [Flomax] 0.4 mg PO DAILY 07/09/16 Pantoprazole Sodium [Protonix -] 40 mg PO BID #60 tablet.ec 07/13/16 Aspirin [ASA -] 81 mg PO DAILY 09/23/17 Atorvastatin Ca [Lipitor] 10 mg PO DAILY 09/23/17 Losartan Potassium [Cozaar] 100 mg PO DAILY 09/23/17 Insulin Glargine,Hum.rec.anlog [[place]ou[place] Solostlacey] 40 unit SQ DAILY 05/20/18 Insulin Lispro [Humalog] 8 unit SQ 1900 05/20/18
--- NOTE | 2018-10-16 12:37 | DS ---
Physical Examination Vital Signs: Vital Signs Temperature 98.2 F 10/16/18 06:00 Pulse Rate 78 10/16/18 06:00 Respiratory Rate 20 10/16/18 06:00 Blood Pressure 107/62 10/16/18 06:00 O2 Sat by Pulse Oximetry (%) 98 10/15/18 22:00 Constitutional: Yes: Well Nourished, No Distress, Calm Eyes: Yes: Conjunctiva Clear HENT: Yes: Atraumatic Cardiovascular: Yes: Regular Rate and Rhythm Respiratory: Yes: Regular, CTA Bilaterally Gastrointestinal: Yes: Normal Bowel Sounds, Soft Musculoskeletal: Yes: Muscle Weakness Extremities: Yes: WNL Wound/Incision: Yes: Dressing Dry and Intact (RUE) Neurological: Yes: Alert, Oriented Psychiatric: Yes: Alert, Oriented Labs: CBC, BMP 10/16/18 07:30 10/16/18 07:30 Discharge Summary Reason For Visit: FRACTURE OF FEMUR Current Active Problems Hypotension (Acute) Right femoral fracture (Acute) Condition: Stable - Instructions Diet, Activity, Other Instructions: follow up with PMD follow up with Orthopedics continue with current medication as prescribed return to ER if severe chest pain, SOB, difficulty breathing, severe pain Referrals: Mau Rogers MD [Staff Physician] - Mateo Ohara MD [Primary Care Provider] - Disposition: NURSING HOME FACILITY - Home Medications Comprehensive Discharge Medication List: Ambulatory Orders Meclizine HCl 25 mg PO TID PRN 07/09/16 Ranolazine [Ranexa -] 500 mg PO BID 07/09/16 Tamsulosin HCl [Flomax] 0.4 mg PO DAILY 07/09/16 Pantoprazole Sodium [Protonix -] 40 mg PO BID #60 tablet.ec 07/13/16 Aspirin [ASA -] 81 mg PO DAILY 09/23/17 Atorvastatin Ca [Lipitor] 10 mg PO DAILY 09/23/17 Losartan Potassium [Cozaar] 100 mg PO DAILY 09/23/17 Insulin Glargine,Hum.rec.anlog [[place]ouje[place] Solostar] 40 unit SQ DAILY 05/20/18 Insulin Lispro [Humalog] 8 unit SQ 1900 05/20/18
[2018-10-16] MEDS: ACETAMINOPHEN 325 MG TABLET (FP) PO PRN (13:20)
--- NOTE | 2018-10-16 15:41 | PN ---
Progress Note (short form) - Note Progress Note: s: no cp sob palps, mild dizzy when doing PT o: Vital Signs Period Temp Pulse Resp BP Sys/Angel Pulse Ox Last 24 Hr 98.2 F-98.4 F 78-84 18-20 103-132/42-62 95-98 Constitutional: Yes: Well Nourished, No Distress, Calm Cardiovascular: Yes: Regular Rate and Rhythm, S1, S2. No: Gallop, Murmur Respiratory: Yes: Regular, CTA Bilaterally. No: Accessory Muscle Use, Rales, Wheezes Extremities: No: Cold Edema: No Neurological: Yes: Alert, Oriented Psychiatric: No: Agitated no jaundice diaphoresis Current Medications Generic Name Dose Route Start Last Admin Trade Name Freq PRN Reason Stop Dose Admin Acetaminophen 650 mg 10/13/18 10:18 10/16/18 13:20 Tylenol - PO 650 mg Q4H PRN Administration PAIN LEVEL 1 - 3 Atorvastatin Calcium 10 mg 10/14/18 22:00 10/15/18 21:25 Lipitor - PO 10 mg HS JORI Administration Docusate Sodium 300 mg 10/13/18 22:00 10/15/18 21:25 Colace - PO 300 mg HS JORI Administration Enoxaparin Sodium 40 mg 10/14/18 10:00 10/16/18 10:36 Lovenox - SQ 40 mg DAILY JORI Administration Sodium Chloride 1,000 mls @ 100 mls/hr 10/15/18 19:00 10/16/18 11:24 Normal Saline - IV 10/16/18 19:00 100 mls/hr ASDIR JORI Administration Insulin Aspart 1 vial 10/13/18 21:05 10/16/18 11:22 Novolog Vial Sliding Scale - SQ 4 units ACHS JORI Administration Protocol Insulin Detemir 25 units 10/14/18 07:00 10/16/18 06:46 Levemir Vial SQ 25 unit AM JORI Administration Losartan Potassium 100 mg 10/14/18 10:00 10/15/18 10:14 Cozaar - PO 100 mg DAILY JORI Administration Magnesium Hydroxide 30 ml 10/15/18 08:40 10/16/18 10:39 Milk Of Magnesia - PO 30 ml Q24H PRN Administration CONSTIPATION Meclizine HCl 25 mg 10/13/18 10:18 Antivert - PO Q8H PRN VERTIGO Ondansetron HCl 4 mg 10/13/18 10:13 10/14/18 14:15 Zofran Injection IVPUSH 4 mg Q6H PRN Administration NAUSEA AND/OR VOMITING Pantoprazole Sodium 40 mg 10/13/18 22:00 10/16/18 10:36 Protonix - PO 40 mg BID JORI Administration Polyethylene Glycol 17 gm 10/14/18 20:15 Miralax (For Daily Use) - PO DAILY PRN CONSTIPATION Ranolazine 500 mg 10/13/18 22:00 10/16/18 10:36 Ranexa - PO 500 mg BID JORI Administration Senna 2 tab 10/14/18 22:00 10/15/18 21:25 Senna - PO 2 tab HS JORI Administration Tamsulosin HCl 0.4 mg 10/14/18 08:30 10/16/18 10:36 Flomax - PO 0.4 mg DAILY@0830 JORI Administration CBC, BMP 10/16/18 07:30 10/16/18 07:30 Assessment/Plan ECG: A-p/V-s. RBBB/LAFB. no path q's, no ST-T (no change vs prior) CXR: clear lungs/pleura Stress MPI 04/2018 (jannet): no ST changes. normal perfusion. normal LVEF Stress MPI 2016: Baseline RBBB. No further EKG changes. Small subtle fixed inferoapical defect. Nl wall motion. findings c/w soft tissue attenuation. Nl EF. Echo 2016: nl lv/rv, no sig valve path, borderline ao root dil, rosa [facility] 2013 ("sob and chest tightness, relieved by NTG"): EDP 18, EF 60%; patent stents pLAD and mLAD, and patent PTCA site of D1; diffuse nonobstructive dz large LCX/OM1/LPL/LPDA (Left-dominant system); nonobstr dz small RCA [facility] 2012 (for chest pain): all patent incl unchanged nonobstr CAD as above [facility] 2008 ("chest pain with stress test + LAD/diag territory ischemia"): D1 stenosis (jailed by stent)--PTCA done; remainder unchanged [facility] 2007 (indication "symptoms with anterolateral ischemia on MPI"): Cypher CASSIE to pLAD, PTCA of D1 (mid LAD stent patent) [facility] 2005 (indication "angina and positive stress test"): Cypher CASSIE x2 to pLAD and mLAD; residual nonobstr dz in D1 and diffusely in LCX system, severe/ diffuse dz small RCA hypotension: -suspect intravasc vol depleted postop, with rising bun/creat--likely not able to keep up despite efforts with PO -started IVF and BP has come up -not concerning for ACS given absence of his typical angina sx's--will check troponin -cont IVF as doing s/p mechanical fall with femur frx: -tripped over his walker at home -s/p uncomplicated gamma nail -tx per ortho cad s/p pci: -pt of dr canales (we are covering for him) -pt has hx of chronic intermittent angina (nitro-sensitive) thought to be 2/2 small vessel dz with mult caths showing no obstructive dz for these sx's (2012, 2013)--treated with ranexa -no angina in long time per pt -mibi 04/2018 no ischemia -ASA, statin per home regimen -not on BB per home list--same plan HTN: -bp controlled -continue home meds DM on insulin: -per dr sheppard ppm: -routine outpt checks with dr canales as doing h/o GIB 2017 (duodenal ulcer s/p cauterization): -ulcer thought to be due to nsaid use -was on ASA only for remote PCIs at that time--back on this now -H/H normal - Current Medication List Current Medications: Active Medications Acetaminophen (Tylenol -) 650 mg PO Q4H PRN PRN Reason: PAIN LEVEL 1 - 3 Last Admin: 10/14/18 14:29 Dose: 650 mg Atorvastatin Calcium (Lipitor -) 10 mg PO HS [facility] Last Admin: 10/14/18 21:30 Dose: 10 mg Docusate Sodium (Colace -) 300 mg PO HS [facility] Last Admin: 10/14/18 21:31 Dose: 300 mg Enoxaparin Sodium (Lovenox -) 40 mg SQ DAILY [facility] Last Admin: 10/15/18 10:10 Dose: 40 mg Sodium Chloride (Normal Saline -) 1,000 mls @ 150 mls/hr IV ASDIR [facility] Stop: 10/15/18 19:00 Last Admin: 10/15/18 16:18 Dose: 150 mls/hr Sodium Chloride (Normal Saline -) 1,000 mls @ 100 mls/hr IV ASDIR [facility] Stop: 10/16/18 19:00 Insulin Aspart (Novolog Vial Sliding Scale -) 1 vial SQ ACHS [facility]; Protocol Last Admin: 10/15/18 16:42 Dose: 4 unit Insulin Detemir (Levemir Vial) 25 units SQ AM [facility] Last Admin: 10/15/18 06:14 Dose: 25 unit Losartan Potassium (Cozaar -) 100 mg PO DAILY [facility] Last Admin: 10/15/18 10:14 Dose: 100 mg Magnesium Hydroxide (Milk Of Magnesia -) 30 ml PO Q24H PRN PRN Reason: CONSTIPATION Last Admin: 10/15/18 10:14 Dose: 30 ml Meclizine HCl (Antivert -) 25 mg PO Q8H PRN PRN Reason: VERTIGO Ondansetron HCl (Zofran Injection) 4 mg IVPUSH Q6H PRN PRN Reason: NAUSEA AND/OR VOMITING Last Admin: 10/14/18 14:15 Dose: 4 mg Oxycodone HCl (Roxicodone -) 5 mg PO Q6H PRN PRN Reason: PAIN LEVEL 7 - 10 Last Admin: 10/15/18 10:14 Dose: 5 mg Pantoprazole Sodium (Protonix -) 40 mg PO BID [facility] Last Admin: 10/15/18 10:14 Dose: 40 mg Polyethylene Glycol (Miralax (For Daily Use) -) 17 gm PO DAILY PRN PRN Reason: CONSTIPATION Ranolazine (Ranexa -) 500 mg PO BID [facility] Last Admin: 10/15/18 10:20 Dose: 500 mg Senna (Senna -) 2 tab PO HS [facility] Last Admin: 10/14/18 21:30 Dose: 2 tab Tamsulosin HCl (Flomax -) 0.4 mg PO DAILY@0830 [facility] Last Admin: 10/15/18 10:14 Dose: 0.4 mg Tramadol HCl (Ultram -) 50 mg PO Q6H PRN PRN Reason: PAIN LEVEL 4 - 6 - Objective Vital Signs: Vital Signs Temperature 98.1 F 10/15/18 10:00 Pulse Rate 90 10/15/18 14:09 Respiratory Rate 18 10/15/18 14:09 Blood Pressure 88/44 L 10/15/18 14:09 O2 Sat by Pulse Oximetry (%) 98 10/15/18 09:00 Constitutional: Yes: Well Nourished, No Distress, Calm Cardiovascular: Yes: Regular Rate and Rhythm, S1, S2. No: Gallop, Murmur Respiratory: Yes: Regular, CTA Bilaterally. No: Accessory Muscle Use, Rales, Wheezes Extremities: No: Cold Edema: No (feet) Neurological: Yes: Alert, Oriented Psychiatric: No: Agitated Labs: CBC, BMP 10/15/18 07:00 10/15/18 07:00 INR, PTT INR 1.06 (0.83-1.09) 10/11/18 12:15 Assessment/Plan ECG: A-p/V-s. RBBB/LAFB. no path q's, no ST-T (no change vs prior CXR: clear lungs/pleura Stress MPI 04/2018 (jannet): no ST changes. normal perfusion. normal LVEF Stress MPI 2016: Baseline RBBB. No further EKG changes. Small subtle fixed inferoapical defect. Nl wall motion. findings c/w soft tissue attenuation. Nl EF. Echo 2016: nl lv/rv, no sig valve path, borderline ao root dil, rosa [facility] 2013 ("sob and chest tightness, relieved by NTG"): EDP 18, EF 60%; patent stents pLAD and mLAD, and patent PTCA site of D1; diffuse nonobstructive dz large LCX/OM1/LPL/LPDA (Left-dominant system); nonobstr dz small RCA [facility] 2012 (for chest pain): all patent incl unchanged nonobstr CAD as above [facility] 2008 ("chest pain with stress test + LAD/diag territory ischemia"): D1 stenosis (jailed by stent)--PTCA done; remainder unchanged [facility] 2007 (indication "symptoms with anterolateral ischemia on MPI"): Cypher CASSIE to pLAD, PTCA of D1 (mid LAD stent patent) [facility] 2005 (indication "angina and positive stress test"): Cypher CASSIE x2 to pLAD and mLAD; residual nonobstr dz in D1 and diffusely in LCX system, severe/ diffuse dz small RCA hypotension: -suspect intravasc vol depleted postop, with rising bun/creat -started IVF and BP has come up--currently 100s systolic per RN romi report -not concerning for ACS s/p mechanical fall with femur frx: -tripped over his walker at home -s/p uncomplicated gamma nail -tx per ortho cad s/p pci: -pt of dr canales (we are covering for him) -pt has hx of chronic intermittent angina (nitro-sensitive) thought to be 2/2 small vessel dz with mult caths showing no obstructive dz for these sx's (2012, 2013)--treated with ranexa -no angina in long time per pt -mibi 04/2018 no ischemia -ASA, statin per home regimen -not on BB per home list--same plan HTN: -bp controlled -continue home meds DM on insulin: -per dr sheppard ppm: -routine outpt checks with dr canales as doing h/o GIB 2017 (duodenal ulcer s/p cauterization): -ulcer thought to be due to nsaid use -was on ASA only for remote PCIs at that time--back on this now -H/H normal
[2018-10-16 15:42] VITALS: BP 111/55; TEMP 98.3
== END 2018-10-16 16:18 | DRG 481 ==
LOC: JER 10:12 → JERBED 14:54 → J6S 19:07
PROVIDERS: ADMIT Family Medicine; ATTEND Family Medicine
PROC: 0QS606Z Reposition Right Upper Femur with Intramedullary Internal Fixation Device, Open Approach (ICD-10-PCS; principal; 2018-10-13 08:00)
DX: S72.21XA Displaced subtrochanteric fracture of right femur, initial encounter for closed fracture (principal); R71.0 Precipitous drop in hematocrit; I10 Essential (primary) hypertension; E78.5 Hyperlipidemia, unspecified; I48.91 Unspecified atrial fibrillation; I25.10 Atherosclerotic heart disease of native coronary artery without angina pectoris; I25.2 Old myocardial infarction; N40.0 Benign prostatic hyperplasia without lower urinary tract symptoms; E11.65 Type 2 diabetes mellitus with hyperglycemia; E11.40 Type 2 diabetes mellitus with diabetic neuropathy, unspecified; I95.9 Hypotension, unspecified; E66.9 Obesity, unspecified; W18.39XA Other fall on same level, initial encounter; Z87.891 Personal history of nicotine dependence; Y92.098 Other place in other non-institutional residence as the place of occurrence of the external cause; Z95.0 Presence of cardiac pacemaker; Z95.5 Presence of coronary angioplasty implant and graft; Z68.31 Body mass index [BMI] 31.0-31.9, adult
CPT/HCPCS: 36415; 70450-TC; 71045-TC-FY; 72125-TC; 72192-TC; 73552-TC-RT-FY; 73700-TC-RT; 76000-TC-FY; 80048; 80053; 81003; 82962; 83036; 84484; 85025; 85027; 85610; 86850; 86900; 86901; 87086; 93005; 93010; 94010; 94760; 97116-GP; 97161-GP; 99283-25; J1644; J7030

== ENCOUNTER 2019-05-01 11:37 | Emergency (ER) | payer OTHER, MEDICARE ==
[2019-05-01 11:44] VITALS: TEMP 98.9; BMI 31.6
--- NOTE | 2019-05-01 12:30 | PDOC ---
History of Present Illness - General Chief Complaint: Nausea/Vomiting Stated Complaint: VOMITING/ WEAKNESS Time Seen by Provider: 05/01/19 12:26 - History of Present Illness Initial Comments: 05/01/19 12:28 PMH pacemaker, CAD s/p 3 stents, HTN, HLD, IDDM, recent R hip fracture in September 2018, cholecystectomy, presenting with N/V and penile pain. Here with nicole. Notably, patient had a urological procedure yesterday with Dr. Wolf to "open up the urethra". States that he had abdominal and groin "discomfort" following the procedure and has been feeling nauseated, with 2 episodes of vomiting last night and another 2 this morning. Reportedly he was called this morning and told to started cipro, then called again and told to come straight to the ER, where Dr. Sheffield would meet him. Nicole states that the concern was "sepsis" , and further states that the patient was delirious this morning. Per call ahead , patient had urolith removal procedure w/ transrectal block, concern for seeding into prostate. Dr. Sheffield requests that we start ceftriaxone. Past History - Past Medical History Allergies/Adverse Reactions: Allergies Allergy/AdvReac Type Severity Reaction Status Date / Time No Known Drug Allergies Allergy Verified 10/11/18 10:24 SEAFOOD Allergy Severe Swelling Uncoded 10/11/18 10:24 Home Medications: Ambulatory Orders Ranolazine [Ranexa -] 500 mg PO BID 07/09/16 Tamsulosin HCl [Flomax] 0.4 mg PO DAILY 07/09/16 Aspirin [ASA -] 81 mg PO DAILY 09/23/17 Atorvastatin Ca [Lipitor] 10 mg PO DAILY 09/23/17 Docusate Sodium [Colace] 100 cap PO DAILY 05/01/19 Insulin Glargine,Hum.rec.anlog [Lantus] 0 units 05/01/19 Levofloxacin [Levaquin] 750 mg PO DAILY 5 Days #5 tablet 05/01/19 Anemia: No Asthma: No Cancer: No Cardiac Disorders: Yes (afib,ppm,cad) CVA: No COPD: No CHF: No DVT: No Dementia: No Diabetes: Yes (IDDM) GI Disorders: Yes (GI bleed) Disorders: No HTN: Yes Hypercholesterolemia: Yes Liver Disease: No Seizures: No Thyroid Disease: No - Surgical History Abdominal Surgery: No Appendectomy: Yes Cardiac Surgery: Yes (PACEMAKER,CARDIAC STENTS X 5) Cholecystectomy: Yes Lung Surgery: No Orthopedic Surgery: Yes (spinal fusion) - Immunization History Immunization Up to Date: Yes - Psycho Social/Smoking Cessation Hx Smoking Status: Yes Smoking History: Never smoked Have you smoked in the past 12 months: No Number of Cigarettes Smoked Daily: 0 If you are a former smoker, when did you quit?: 28 years ago Information on smoking cessation initiated: No Hx Alcohol Use: No Drug/Substance Use Hx: No Substance Use Type: None Hx Substance Use Treatment: No Review of Systems - Review of Systems Constitutional: Yes: Fever HEENTM: Yes: Hearing Loss (chronic). No: Blurred Vision Respiratory: No: Cough, Orthopnea, Shortness of Breath Cardiac (ROS): No: Chest Pain, Edema, Irregular Heart Rate, Lightheadedness, Palpitations, Syncope, Chest Tightness ABD/GI: Yes: Nausea, Vomiting. No: Abdominal Distended, Constipated, Diarrhea : Yes: Hematuria, Pain. No: Testicular Pain Musculoskeletal: No: Back Pain, Muscle Pain Neurological: No: Headache, Numbness, Tingling, Weakness, Dizziness *Physical Exam - Vital Signs Last Vital Signs Temp Pulse Resp BP Pulse Ox 98.9 F 109 H 16 108/60 97 05/01/19 11:40 05/01/19 11:40 05/01/19 11:40 05/01/19 11:40 05/01/19 11:40 - Physical Exam Comments: 05/01/19 13:03 Gen: NAD, well-developed, well-nourished Neuro: AAOX4, FTN intact, CN II-XII intact, EOMI HEENT: atraumatic, normocephalic Neck: trachea midline, supple CV: regular rate, regular rhythm Pulm: CTA b/l, no wheezing Abd: soft, non-distended, non-tender : tenderness to urethra, no discharge, Reynolds in place, urine in bag with red streaks, otherwise unremarkable MSK: full ROM, 2+ pulses Skin: warm, dry Extr: no edema, no deformities ED Treatment Course - LABORATORY CBC & Chemistry Diagram: 05/01/19 13:20 05/01/19 13:20 Medical Decision Making - Medical Decision Making 05/01/19 13:06 Concern for UTI, possible sepsis. - CBC, CMP - EKG considering cardiac history - UA/UC - Ofirmev, ceftriaxone, Zofran - 1L NS - ctm 05/01/19 13:16 EKG sinus tachy at 102 bpm, RBBB, L anterior fascicular block 05/01/19 14:15 UA concerning for UTI, WBC slightly elevated at 10.2, Na 133. Will give another liter of NS, patient already getting ceftriaxone. 05/01/19 14:[address] Sheffield, states that if patient is stable, may go home on Levaquin to follow up with him in the office. Leave catheter in place. Will also f/u urine culture. 05/01/19 14:58 Patient feeling better, will PO challenge. Likely dc on Levaquin to follow up with Dr. Sheffield. 05/01/19 15:17 Patient passed PO challenge. Will discharge to follow up with Dr. Sheffield. Discharge - Discharge Information Problems reviewed: Yes Clinical Impression/Diagnosis: UTI (urinary tract infection) Condition: Improved Disposition: HOME - Admission No - Additional Discharge Information Prescriptions: Levofloxacin [Levaquin] 750 mg PO DAILY 5 Days #5 tablet - Follow up/Referral Referrals: Mateo Ohara MD [Primary Care Provider] - - Patient Discharge Instructions Patient Printed Discharge Instructions: DI for Urinary Tract Infection (UTI) Additional Instructions: You were sent over by your urologist after having vomiting. Your labs were concerning for a urinary tract infection. Please take your Levaquin 750mg daily for [address] Wolf to make a follow up appointment. Follow up with your primary care doctor. Return to the ED if you develop worsening pain or vomiting. - Post Discharge Activity
--- NOTE | 2019-05-01 12:32 | PDOC ---
Attending Attestation - Resident Resident Name: Jackelin Boogie - HPI HPI: 05/01/19 16:48 Pt presents to the ED for nausea and vomiting after prostate procedure. Also complaining of pelvic pain. Now feels improved and is tolerating PO. - Physicial Exam PE: 05/01/19 16:49 Agree with resident exam. Patient is alert and oriented and in no acute distress. Abdomen is soft, non tender, non distended without guarding or rebound. - Medical Decision Making 05/01/19 16:50 Pt presents to the ED complaining of nausea and vomiting that has now resolved. sent in for rule out sepsis. Abdomen soft, non tender and non distended. Labs are within normal limits. discussed with Dr. jones. WIll treat with levaquin and discharge home.
[2019-05-01] MEDS ORDERED: CEFTRIAXONE 1,000 MG in DEXTROSE 5%-WATER - 50 ML IVPB ONE (12:52)
[2019-05-01] MEDS ORDERED: SODIUM CHLORIDE 1,000 ML IV STA ×2 (12:55→14:16)
[2019-05-01] MEDS ORDERED: ACETAMINOPHEN 1000 MG/100 ML VIAL (NON FORMULARY) IVPB ONE (12:56)
[2019-05-01] MEDS ORDERED: CEFTRIAXONE 2 GM/100 ML BAG IVPB ONE (12:58)
[2019-05-01] MEDS ORDERED: ACETAMINOPHEN INJECTION 100 ML IVPB ONE (12:58)
[2019-05-01] MEDS ORDERED: ONDANSETRON 4 MG/2 ML VIAL IVPUSH ONE (13:00)
[2019-05-01 13:26] LABS: EPI CELLS 0.5 /HPF (0-5/HPF); HYALINE CASTS 8 /lpf (0-8); PH,URINE 5.5 (5.0-8.0); URINE APPEARANCE CLOUDY; URINE BILIRUBIN NEGATIVE (NEGATIVE); URINE COLOR DK YELLOW; URINE GLUCOSE (UA) 3+ (NEGATIVE); URINE KETONE 1+ (NEGATIVE); URINE LEUK ESTERASE 2+ (NEGATIVE); URINE NITRITE NEGATIVE (NEGATIVE); URINE PROTEIN 3+ (NEGATIVE); URINE RBC 200 /hpf (0-4); URINE WBC 59 /hpf (0-5)
[2019-05-01 13:30] LABS: BASO % 0.3 % (0-2.0); HEMATOCRIT 35.7 % (35.4-49); HEMOGLOBIN 12.7 GM/dL (11.7-16.9); LYMPH % 1.9 % (8-40); MCH 33.1 pg (25.7-33.7); MCHC 35.6 g/dl (32.0-35.9); MEAN CELL VOLUME 92.9 fl (80-96); MEAN PLT VOLUME 8.7 fl (7.5-11.1); MONO % 4.4 % (3.8-10.2); NEUT % 93.4 % (42.8-82.8); PLATELET COUNT 151 K/MM3 (134-434); RBC 3.84 M/mm3 (4.00-5.60); RDW 12.9 % (11.9-15.9); WHITE BLOOD COUNT 10.2 K/mm3 (4.0-10.0)
[2019-05-01 13:56] LABS: ANISOCYTOSIS 0; MACROCYTOSIS 0
[2019-05-01 14:00] LABS: ALBUMIN 3.4 g/dl (3.4-5.0); BILIRUBIN,TOTAL 2.6 mg/dL (0.2-1); BLOOD UREA NITROGEN 20.6 mg/dL (7-18); CALCIUM 8.5 mg/dL (8.5-10.1); CREATININE 1.4 mg/dL (0.55-1.3); POTASSIUM 4.2 mmol/L (3.5-5.1); TOT PROT 6.2 g/dl (6.4-8.2)
[2019-05-01 14:02] LABS: PLATELET ESTIMATE ADEQUATE
--- NOTE | 2019-05-01 14:32 | EKG ---
Test Reason : Blood Pressure : / mmHG Vent. Rate : 102 BPM Atrial Rate : 102 BPM P-R Int : 176 ms QRS Dur : 142 ms QT Int : 366 ms P-R-T Axes : 000 -63 045 degrees QTc Int : 477 ms SINUS TACHYCARDIA RIGHT BUNDLE BRANCH BLOCK LEFT ANTERIOR FASCICULAR BLOCK BIFASCICULAR BLOCK ABNORMAL ECG WHEN COMPARED WITH ECG OF 11-OCT-2018 12:19, SINUS RHYTHM HAS REPLACED ELECTRONIC ATRIAL PACEMAKER VENT. RATE HAS INCREASED BY 42 BPM Confirmed by HILDA MAREI MD ([id number]) on 05/01/2019 2:32:34 PM Referred By: Confirmed By:HILDA MARIE MD
[2019-05-01 16:05] VITALS: BP 123/57; PULSE 84
== END 2019-05-01 16:02 | disposition home or self-care (01) ==
LOC: JER 11:37 → SUPCPDRO 11:37 → JER 16:02
PROC: 3E0337Z Introduction of Electrolytic and Water Balance Substance into Peripheral Vein, Percutaneous Approach (ICD-10-PCS; principal; 2019-05-01)
PROC: 3E03329 Introduction of Other Anti-infective into Peripheral Vein, Percutaneous Approach (ICD-10-PCS; 2019-05-01)
PROC: 3E033NZ Introduction of Analgesics, Hypnotics, Sedatives into Peripheral Vein, Percutaneous Approach (ICD-10-PCS; 2019-05-01)
PROC: 3E033GC Introduction of Other Therapeutic Substance into Peripheral Vein, Percutaneous Approach (ICD-10-PCS; 2019-05-01)
DX: N39.0 Urinary tract infection, site not specified (principal); Z98.890 Other specified postprocedural states; I25.10 Atherosclerotic heart disease of native coronary artery without angina pectoris; I10 Essential (primary) hypertension; Z95.5 Presence of coronary angioplasty implant and graft; E11.9 Type 2 diabetes mellitus without complications; Z79.4 Long term (current) use of insulin; E78.5 Hyperlipidemia, unspecified; E78.00 Pure hypercholesterolemia, unspecified; Z95.0 Presence of cardiac pacemaker; Z91.013 Allergy to seafood; Z87.891 Personal history of nicotine dependence; B96.20 Unspecified Escherichia coli [E. coli] as the cause of diseases classified elsewhere
CPT/HCPCS: 36415; 80053; 81003; 82962; 85025; 87086; 87186; 93005; 93010; 99284-25; J0131; J7030

== ENCOUNTER 2019-05-03 13:07 | Inpatient (IN) | payer OTHER, MEDICARE ==
--- NOTE | 2019-05-03 14:23 | PDOC ---
History of Present Illness - General Chief Complaint: Syncope/Near Syncope Stated Complaint: PASSED OUT/ Time Seen by Provider: 05/03/19 13:43 History Source: Patient, Family (Son) Exam Limitations: No Limitations - History of Present Illness Initial Comments: 05/03/19 14:14 83 yo M PMH [employer]onic dual-chamber pacemaker (RBBB w/ LAFB), placed initally in 2005 w/ battery [place] [address] Bain, CAD s/p 3 stents, HTN, HLD, IDDM, recent R hip fracture in September 2018, cholecystectomy, recent urological procedure to remove urolith c/b UTI on Levaquin, s/p catheter removed yesterday , presenting after syncope. Patient states that he was in the bathroom and woke up on the floor. Uncertain whether he was actively straining to urinate or not, and is also uncertain whether he has urinated since the catheter removal . Also has not had a bowel movement in the last two days in s/o not taking his Colace. Complains of a mild headache, nausea since the removal of catheter yesterday, mild SOB which has since revolved, suprapubic pressure. Denies ever having chest pain, sweating, fevers/chills, diarrhea. Past History - Past Medical History Allergies/Adverse Reactions: Allergies Allergy/AdvReac Type Severity Reaction Status Date / Time No Known Drug Allergies Allergy Verified 05/03/19 14:01 SEAFOOD Allergy Severe Swelling Uncoded 05/03/19 14:01 Home Medications: Ambulatory Orders Ranolazine [Ranexa -] 500 mg PO BID 07/09/16 Aspirin [ASA -] 81 mg PO DAILY 09/23/17 Atorvastatin Ca [Lipitor] 10 mg PO DAILY 09/23/17 Docusate Sodium [Colace] 100 cap PO BID 05/01/19 Levofloxacin [Levaquin] 750 mg PO DAILY 5 Days #5 tablet 05/01/19 Insulin Glargine,Hum.rec.anlog [Basaglar Kwikpen U-100] 30 unit SQ DAILY Linagliptin [Tradjenta] 5 mg PO DAILY 05/03/19 Melatonin 5 mg PO DAILY 05/03/19 Omeprazole 20 mg PO DAILY 05/03/19 Anemia: No Asthma: No Cancer: No Cardiac Disorders: Yes (afib,ppm,cad) CVA: No COPD: No CHF: No DVT: No Dementia: No Diabetes: Yes (IDDM) GI Disorders: Yes (GI bleed) Disorders: No HTN: Yes Hypercholesterolemia: Yes Liver Disease: No Seizures: No Thyroid Disease: No - Surgical History Abdominal Surgery: No Appendectomy: Yes Cardiac Surgery: Yes (PACEMAKER,CARDIAC STENTS X 5) Cholecystectomy: Yes Lung Surgery: No Orthopedic Surgery: Yes (spinal fusion) - Immunization History Immunization Up to Date: Yes - Psycho Social/Smoking Cessation Hx Smoking Status: Yes Smoking History: Never smoked Have you smoked in the past 12 months: No Number of Cigarettes Smoked Daily: 0 If you are a former smoker, when did you quit?: 28 years ago Information on smoking cessation initiated: No Hx Alcohol Use: No Drug/Substance Use Hx: No Substance Use Type: None Hx Substance Use Treatment: No Review of Systems - Review of Systems Able to Perform ROS?: Yes Constitutional: No: Chills, Diaphoresis, Fever, Malaise HEENTM: No: Blurred Vision, Throat Swelling, Difficulty Swallowing Respiratory: No: Cough, Orthopnea, Shortness of Breath Cardiac (ROS): Yes: Syncope. No: Chest Pain, Edema, Irregular Heart Rate, Lightheadedness, Palpitations, Chest Tightness ABD/GI: Yes: Constipated (2 days, not taken Colace), Nausea. No: Diarrhea, Vomiting : No: Burning, Dysuria, Discharge, Frequency, Flank Pain, Hematuria Musculoskeletal: No: Back Pain, Muscle Pain Neurological: No: Headache, Numbness, Tingling, Weakness, Dizziness *Physical Exam - Vital Signs Last Vital Signs Temp Pulse Resp BP Pulse Ox 97.3 F L 88 18 120/79 100 05/03/19 13:10 05/03/19 13:10 05/03/19 13:10 05/03/19 13:10 05/03/19 13:10 - Physical Exam Comments: 05/03/19 14:25 Gen: NAD, well-developed, well-nourished HEENT: atraumatic, normocephalic Neuro: AAOX4, CNII-XII intact, FTN intact, PERRLA, EOMI Neck: supple, trachea midline CV: regular rate, regular rhythm Pulm: CTA b/l, no wheezing Abd: soft, non-distended, non-tender : mild ttp at R testicle, normal penis, no testicular swelling Skin: warm, dry Extr: no edema, no deformities MSK: full ROM, intact pulses ED Treatment Course - LABORATORY CBC & Chemistry Diagram: 05/03/19 15:00 05/03/19 15:00 - RADIOLOGY Radiology Studies Ordered: Category Date Time Status CERVICAL SPINE CT W/O CONTR [CT] Stat CT Scan 05/03/19 14:[address] WITHOUT CONTRAST [CT] Stat CT Scan 05/03/19 14:10 Ordered CHEST X-RAY PORTABLE* [RAD] Stat Radiology 05/03/19 14:10 Ordered Medical Decision Making - Medical Decision Making 05/03/19 14:31 Patient with LOC, possible fall. - CT head non con, C spine - CBC, CMP - EKG, trop (less likely cardiac etiology considering patient has pacemaker, but cannot rule out) - CXR port - coags - UA/UC EKG 90 bpm, LAD, RBBB + LAFD, no apparent pacer spikes, no ST segment elevations CXR unchanged from prior. 05/03/19 15:41 Bailey from [employer] says she will come by at around 1800 to interrogate the device. 05/03/19 17:35 Labs unconcerning, UA showing likely resolving UTI. Will f/u interrogation, CT head, CT spine. 05/03/19 18:51 CT head shows traumatic subdural hemorrhage, 6mm. Interrogation of pacemaker without any arrhythmias, pacemaker functioning without issues. 05/03/19 18:56 Spoke with neurosurg interior design professional Dr. Gomez, does not believe that patient needs surgical evaluation. Will admit to ICU. 05/03/19 19:46 Spoke about patient with admitting hospitalist team, will admit under Dr. Sales to ICU for q1hr neuro checks and close observation. Discharge - Discharge Information Problems reviewed: Yes Clinical Impression/Diagnosis: Subdural hematoma, acute Syncope Qualifiers: Syncope type: unspecified Qualified Code(s): R55 - Syncope and collapse Condition: Guarded - Admission Yes - Follow up/Referral - Patient Discharge Instructions - Post Discharge Activity
--- NOTE | 2019-05-03 14:44 | PDOC ---
Attending Attestation - Resident Resident Name: Jackelin Boogie - ED Attending Attestation I have performed the following: I have examined & evaluated the patient, The case was reviewed & discussed with the resident, I agree w/resident's findings & plan, Exceptions are as noted - HPI HPI: 05/03/19 15:21 83 M with h/o CAD/stents, HTN, HLD, DM, pacemaker, presenting to ED with syncopal episode. Pt states that he was in the bathroom urinating, and the next thing he remembers is waking up on the floor. Pt has no recollection of the fall. Does not remember feeling lightheaded or dizzy. Denies an CP/SOB/ palpitations. Pt currently denies any complaints. Pt notes that the last time he had a syncopal episode was in 2005 when he first had his PPM placed. - Physicial Exam PE: 05/03/19 15:23 "GENERAL: Awake, alert, and fully oriented, in no acute distress. HEAD: No signs of trauma EYES: PERRLA, EOMI, sclera anicteric, conjunctiva clear ENT: Auricles normal inspection, hearing grossly normal, nares patent, oropharynx clear without exudates. Moist mucosa NECK: Nontender, no stepoffs, Normal ROM, supple, no lymphadenopathy, JVD, or masses LUNGS: Breath sounds equal, clear to auscultation bilaterally. No wheezes, and no crackles HEART: Regular rate and rhythm, normal S1 and S2, no murmurs, rubs or gallops ABDOMEN: Soft, nontender, normoactive bowel sounds. No guarding, no rebound. No masses EXTREMITIES: Normal range of motion, no edema. No clubbing or cyanosis. No cords, erythema, or tenderness NEUROLOGICAL: Cranial nerves II through XII intact. 5/5 strength and sensation in all extremities, Normal speech, normal gait, normal cerebellar function SKIN: Warm, Dry, normal turgor, no rashes or lesions noted. - Critical Care Time Total Critical Care Time: 60 Critical Care Statement: The care of this patient involved high complexity decision making to prevent further life threatening deterioration of the patient 's condition and/or to evaluate & treat vital organ system(s) failure or risk of failure. - Medical Decision Making 05/03/19 15:23 83 M with syncopal episode. EKG with tri-fascicular block. - Labs, trop - CT head - Interrogate PPM - Admit tele
[2019-05-03 15:07] LABS: BASO % 0.2 % (0-2.0); EOS % 0.5 % (0-4.5); HEMATOCRIT 34.2 % (35.4-49); HEMOGLOBIN 11.8 GM/dL (11.7-16.9); LYMPH % 10.1 % (8-40); MCH 32.3 pg (25.7-33.7); MCHC 34.5 g/dl (32.0-35.9); MEAN CELL VOLUME 93.5 fl (80-96); MEAN PLT VOLUME 8.8 fl (7.5-11.1); MONO % 8.6 % (3.8-10.2); NEUT % 80.6 % (42.8-82.8); PLATELET COUNT 139 K/MM3 (134-434); RBC 3.66 M/mm3 (4.00-5.60); WHITE BLOOD COUNT 7.1 K/mm3 (4.0-10.0)
[2019-05-03 15:12] LABS: INR 0.99 (0.83-1.09); PROTHROMBIN TIME (PATIENT) 11.7 SEC (9.7-13.0)
[2019-05-03 15:46] LABS: ALBUMIN 2.9 g/dl (3.4-5.0); ALK PHOS 103 U/L (45-117); ANION GAP 8 MMOL/L (8-16); BILIRUBIN,TOTAL 1.1 mg/dL (0.2-1); CALCIUM 8.5 mg/dL (8.5-10.1); CHLORIDE 102 mmol/L (98-107); CO2 27 mmol/L (21-32); CREATININE 1.2 mg/dL (0.55-1.3); GLUCOSE,RANDOM 204 mg/dL (74-106); POTASSIUM 4.6 mmol/L (3.5-5.1); SGOT/AST 22 U/L (15-37); SGPT/ALT 23 U/L (13-61); SODIUM 136 mmol/L (136-145); TOT PROT 5.9 g/dl (6.4-8.2)
[2019-05-03 17:03] LABS: PH,URINE 5.5 (5.0-8.0); URINE APPEARANCE Clear; URINE BILIRUBIN Negative (NEGATIVE); URINE COLOR Yellow; URINE GLUCOSE (UA) 1+ (NEGATIVE); URINE KETONE Trace (NEGATIVE); URINE LEUK ESTERASE Trace (NEGATIVE); URINE NITRITE Negative (NEGATIVE); URINE PROTEIN 2+ (NEGATIVE); URINE UROBILINOGEN 0.2 mg/dL (0.2-1.0)
[2019-05-03 18:13] LABS: EPI CELLS 0-3 /HPF (0-5/HPF); URINE BACTERIA FEW /hpf (NEGATIVE)
--- NOTE | 2019-05-03 18:45 | PDOC ---
*Physical Exam - Vital Signs Last Vital Signs Temp Pulse Resp BP Pulse Ox 97.3 F L 88 18 120/79 100 05/03/19 13:10 05/03/19 13:10 05/03/19 13:10 05/03/19 13:10 05/03/19 13:10 ED Treatment Course - LABORATORY CBC & Chemistry Diagram: 05/03/19 15:00 05/03/19 15:00 - ADDITIONAL ORDERS Additional order review: Laboratory Results 05/03/19 05/03/19 05/03/19 15:43 15:00 15:00 PT with INR 11.70 INR 0.99 PTT (Actin FS) Sodium Potassium Chloride Carbon Dioxide Anion Gap BUN Creatinine Est GFR (CKD-EPI)AfAm Est GFR (CKD-EPI)NonAf Random Glucose Calcium Total Bilirubin AST ALT Alkaline Phosphatase Troponin I < 0.02 Total Protein Albumin Urine Color Yellow Urine Appearance Clear Urine pH 5.5 Ur Specific [place] >= 1.030 Urine Protein 2+ H Urine Glucose (UA) 1+ H Urine Ketones Trace Urine Blood 2+ H Urine Nitrite Negative Urine Bilirubin Negative Urine Urobilinogen 0.2 Ur Leukocyte Esterase Trace Urine WBC (Auto) 2-5 Urine RBC (Auto) 5-10 U Epithel Cells (Auto) 0-3 Urine Bacteria (Auto) Few 05/03/19 05/03/19 15:00 15:00 PT with INR INR PTT (Actin FS) 27.6 Sodium 136 Potassium 4.6 Chloride 102 Carbon Dioxide 27 Anion Gap 8 BUN 28.0 H Creatinine 1.2 Est GFR (CKD-EPI)AfAm 64.42 Est GFR (CKD-EPI)NonAf 55.58 Random Glucose 204 H Calcium 8.5 Total Bilirubin 1.1 H AST 22 ALT 23 Alkaline Phosphatase 103 Troponin I Total Protein 5.9 L Albumin 2.9 L Urine Color Urine Appearance Urine pH Ur Specific [place] Urine Protein Urine Glucose (UA) Urine Ketones Urine Blood Urine Nitrite Urine Bilirubin Urine Urobilinogen Ur Leukocyte Esterase Urine WBC (Auto) Urine RBC (Auto) U Epithel Cells (Auto) Urine Bacteria (Auto) 05/03/19 15:00 RBC 3.66 L MCV 93.5 MCHC 34.5 RDW 13.0 MPV 8.8 Neutrophils % 80.6 Lymphocytes % 10.1 D Monocytes % 8.6 D Eosinophils % 0.5 D Basophils % 0.2 Medical Decision Making - Medical Decision Making 05/03/19 18:45 pt signed out from Dr Garcia pending eval/CT imaging, anticipating admission. 83 yo M PMH Medtronic dual-chamber pacemaker (RBBB w/ LAFB), placed initally in 2005 w/ battery [place] [address] Bain, CAD s/p 3 stents, HTN, HLD, IDDM, recent R hip fracture in September 2018, cholecystectomy, recent urological procedure to remove urolith c/b UTI on Levaquin, s/p catheter removed yesterday , presenting after syncopal episode, while he was using bathroom. vitals wnl, reviewed Vital Signs Temp Pulse Resp BP Pulse Ox 97.3 F L 88 18 120/79 100 05/03/19 13:10 05/03/19 13:10 05/03/19 13:10 05/03/19 13:10 05/03/19 13:10 CT head with traumatic SDH noted, neuro intact, normotensive only on ASA no AC use NSG consult, Dr Dewitt call - discussed case, will review the images and plan of care. likely no surgical evacuation and can clinically monitor serially ICU admission, q1h neuro checks, monitor admit syncope and traumatic SDH 05/03/19 18:49 05/03/19 18:56 Discharge - Discharge Information Problems reviewed: Yes Clinical Impression/Diagnosis: Subdural hematoma, acute Syncope Qualifiers: Syncope type: unspecified Qualified Code(s): R55 - Syncope and collapse Condition: Guarded - Follow up/Referral Referrals: Td Erickson MD [Primary Care Provider] - - Patient Discharge Instructions - Post Discharge Activity
[2019-05-03] MEDS ORDERED: SODIUM CHLORIDE 1,000 ML IV SCH (20:45)
--- NOTE | 2019-05-03 20:46 | HP ---
<Waqar Martinez - Last Filed: 05/03/19 22:01> Addendum: PCP: Dr. Ohara CV: Dr. Antonio (Covered in house by Dr. Geller) Seen and examined; agree with above history and physical aside from as supplemented by myself below. Personally verified all hey historical findings and harper physical exam findings. Discussed at length with the resident team. Briefly, he presents following a syncopal episode at home and is found to have a SDH on CT scan; case discussed with nsgy by ER and it was felt he is stable for admission without stat operative intervention. He is being brought to the ICU with hourly neuro checks, seizure precautions, NPO, and monitoring. No acutely worsening neurological status. 10 sys ROS done and negative aside from HPI VS, labs, imaging reviewed NAD, AAO, resting in bed RRR s1/2 no mgr No degrading neuro status; keenly responsive, PERRLA and EOMI, no fnd. Normal mood, appropriate behavior NT ND +BS Skin without rashes or breakdown Prior Studies reviewed -[facility] 2013: EF 60%, LVEDP 18, pLAD and mLAD stents patent, patent PTCA site D1 with diffuse nonobstructive CAD. Left dominant system. Nonobstructing CAD RCA. -Lexiscan 2018: No ST-T changes, normal perfusion, normal LVEF Current Studies -EKG reviewed; telemetry reviewed -CXR reviewed A/P: Patient presents with SDH following syncopal episode. He is being currently treated for UTI (likely CAUTI) with PO levaquin and hasn't finished his course. NSGY states nonoperative management at this time. Monitoring in the ICU and following neurosurgery recs. Control BP. Hold ASA. Frequent neuro checks and seizure precautions. Problems include: -Acute Intracranial hemorrhage (SDH; holding off on MRI until PPM cleared and will defer to AM team/nsgy. Neuro checks, monitor in ICU. Stable now. Was on ASA at home.) -Syncope, fall (Gentle IVF overnight, interrogated PPM and monitor on tele [ stated neg by ER]. Consult CV. Checking echo. Consider orthostatics in AM but want to keep HOB elevated, etc. and avoid any chance of further falls with issue #1) -Hx falls at home (recent femur fx, now with SDH) -Acute cystitis 2/2 CAUTI (exchange catheter, check QTc and if acceptable continue levaquin. Obtain cx results and monitor CBC and for fevers) -Hx CAD s/p multiple PCI with chronic stable angina (2013 without any obstructed stent and diffuse CAD left and right sided without lesions amiable to further PCI and clear lexiscan 2017 with normal LVEF. Has been on ranexa for his anginal symptoms in the past per prior CV notes. -Hx HTN (control with goal with respect to issue #1) -Hx GIB 2/2 duodenal ulcer s/p cauterization (2018, due to NSAID use, cleared for ASA use following this per cardiology. Will monitor) -Hyperglycemia (checking A1c) -Status post PPM (Interrogated in ER and they informed me that this was negative ) Consults: Neurosurgery, Cardiology, PT ATTENDING PHYSICIAN STATEMENT I saw and evaluated the patient. I reviewed the resident's note and discussed the case with the resident. I agree with the resident's findings and plan as documented. SUBJECTIVE: OBJECTIVE: ASSESSMENT AND PLAN: <Max Duenas - Last Filed: 05/04/19 02:43> CHIEF COMPLAINT: s/p fall, LOC PCP: Dr. Ohara HISTORY OF PRESENT ILLNESS: 83 year old male with a past medical history of RBBB/LAFB s/p medtronic pacemaker, CAD s/p 3 stents, hypertension, hyperlipidemia, diabetes mellitus, recent hip fracture and recent urologic stent placement this week presented to the hospital s/p syncopal episode at home. He reports that he was in his bathroom around 4am, felt slightly disoriented and next thing he knows he woke up on the ground around 1 hour later and called his son for help. States that he does not remember what happened or how he managed to get onto the floor. Denies any confusion after he woke up, denies bowel or bladder incontinence. States that he had not eaten anything that day before the incident. Has a history of falls for hypoglycemia and dehydration. He recently had a urology procedure where he received a stent. He reports that he got a valencia put in as an outpatient, however it was found that he had a urinary tract infection so he was started on levaquin for 5 days and the catheter was removed. He finished 2 days of levaquin out of 5. He denies chest pain, shortness of breath, headache, fevers, chills, abdominal pain, weakness, numbness/tingling. ER course was notable for: (1) CT head showing a 6mm subdural hematoma (2) (3) Recent Travel: denies PAST MEDICAL HISTORY: RBBB/LAFB s/p medtronic pacemaker, CAD s/p 3 stents, hypertension, hyperlipidemia, diabetes mellitus, recent hip fracture and recent urologic stent PAST SURGICAL HISTORY: cholecystectomy in , appendectomy in the s, 4-5th vertebral fusion in 2001 Social History: Smoking: never Alcohol: socially Drugs: never Family History: no family hx of cancer, DM, heart disease or strokes Allergies No Known Drug Allergies Allergy (Verified 05/03/19 14:01) SEAFOOD Allergy (Severe, Uncoded 05/03/19 14:01) Swelling "Throat closes" HOME MEDICATIONS: Home Medications Medication Instructions Recorded Ranolazine [Ranexa -] 500 mg PO BID 07/09/16 Aspirin [ASA -] 81 mg PO DAILY 09/23/17 Atorvastatin Ca [Lipitor] 10 mg PO DAILY 09/23/17 Docusate Sodium [Colace] 100 cap PO BID 05/01/19 Levofloxacin [Levaquin] 750 mg PO DAILY 5 Days #5 tablet 05/01/19 Insulin Glargine,Hum.rec.anlog 30 unit SQ DAILY 05/03/19 [Basaglar Kwikpen U-100] Linagliptin [Tradjenta] 5 mg PO DAILY 05/03/19 Melatonin 5 mg PO DAILY 05/03/19 Omeprazole 20 mg PO DAILY 05/03/19 REVIEW OF SYSTEMS CONSTITUTIONAL: Absent: fever, chills, diaphoresis, generalized weakness, malaise, loss of appetite, weight change HEENT: Absent: rhinorrhea, nasal congestion, throat pain, throat swelling, difficulty swallowing, mouth swelling, ear pain, eye pain, visual changes CARDIOVASCULAR: Absent: chest pain, syncope, palpitations, irregular heart rate, lightheadedness , peripheral edema RESPIRATORY: Absent: cough, shortness of breath, dyspnea with exertion, orthopnea, wheezing, stridor, hemoptysis GASTROINTESTINAL: Absent: abdominal pain, abdominal distension, nausea, vomiting, diarrhea, constipation, melena, hematochezia GENITOURINARY: Absent: dysuria, frequency, urgency, hesitancy, hematuria, flank pain, genital pain MUSCULOSKELETAL: Absent: myalgia, arthralgia, joint swelling, back pain, neck pain SKIN: Absent: rash, itching, pallor HEMATOLOGIC/IMMUNOLOGIC: Absent: easy bleeding, easy bruising, lymphadenopathy, frequent infections ENDOCRINE: Absent: unexplained weight gain, unexplained weight loss, heat intolerance, cold intolerance NEUROLOGIC: Absent: headache, focal weakness or paresthesias, dizziness, unsteady gait, seizure, mental status changes, bladder or bowel incontinence PSYCHIATRIC: Absent: anxiety, depression, suicidal or homicidal ideation, hallucinations. PHYSICAL EXAMINATION Vital Signs - 24 hr 05/03/19 05/03/19 05/03/19 13:10 19:30 20:30 Temperature 97.3 F L Pulse Rate 88 79 Pulse Rate [ 81 Right] Respiratory 18 18 16 Rate Blood Pressure 120/79 135/55 L Blood Pressure 125/83 [Right Arm] O2 Sat by Pulse 100 100 Oximetry (%) GENERAL: A&Ox3, no acute distress EYES: PERRLA, EOMI ENT: Moist mucus membranes NECK: No JVD LUNGS: CTA, no wheezes HEART: RRR, systolic murmur noted on exam ABDOMEN: Soft, nontender, BS present MUSCULOSKELETAL: No CVA Tenderness EXTREMITIES: 2+ pulses, no edema. NEUROLOGICAL: Cranial nerves II-XII intact. Motor strength 5/5 bilaterally. Sensation intact. Reflexes 2/4 bilaterally upper and lower extremities. No Dysmetria. Laboratory Results - last 24 hr 05/03/19 05/03/19 05/03/19 15:00 15:00 15:00 WBC 7.1 RBC 3.66 L Hgb 11.8 Hct 34.2 L MCV 93.5 MCH 32.3 MCHC 34.5 RDW 13.0 Plt Count 139 MPV 8.8 Absolute Neuts (auto) 5.7 Neutrophils % 80.6 Lymphocytes % 10.1 D Monocytes % 8.6 D Eosinophils % 0.5 D Basophils % 0.2 Nucleated RBC % 0 PT with INR INR PTT (Actin FS) 27.6 Sodium 136 Potassium 4.6 Chloride 102 Carbon Dioxide 27 Anion Gap 8 BUN 28.0 H Creatinine 1.2 Est GFR (CKD-EPI)AfAm 64.42 Est GFR (CKD-EPI)NonAf 55.58 Random Glucose 204 H Calcium 8.5 Total Bilirubin 1.1 H AST 22 ALT 23 Alkaline Phosphatase 103 Creatine Kinase 69 Troponin I < 0.02 Total Protein 5.9 L Albumin 2.9 L Urine Color Urine Appearance Urine pH Ur Specific [place] Urine Protein Urine Glucose (UA) Urine Ketones Urine Blood Urine Nitrite Urine Bilirubin Urine Urobilinogen Ur Leukocyte Esterase Urine WBC (Auto) Urine RBC (Auto) U Epithel Cells (Auto) Urine Bacteria (Auto) 05/03/19 05/03/19 05/03/19 15:00 15:00 15:43 WBC RBC Hgb Hct MCV MCH MCHC RDW Plt Count MPV Absolute Neuts (auto) Neutrophils % Lymphocytes % Monocytes % Eosinophils % Basophils % Nucleated RBC % PT with INR 11.70 INR 0.99 PTT (Actin FS) Sodium Potassium Chloride Carbon Dioxide Anion Gap BUN Creatinine Est GFR (CKD-EPI)AfAm Est GFR (CKD-EPI)NonAf Random Glucose Calcium Total Bilirubin AST ALT Alkaline Phosphatase Creatine Kinase Troponin I < 0.02 Total Protein Albumin Urine Color Yellow Urine Appearance Clear Urine pH 5.5 Ur Specific [place] >= 1.030 Urine Protein 2+ H Urine Glucose (UA) 1+ H Urine Ketones Trace Urine Blood 2+ H Urine Nitrite Negative Urine Bilirubin Negative Urine Urobilinogen 0.2 Ur Leukocyte Esterase Trace Urine WBC (Auto) 2-5 Urine RBC (Auto) 5-10 U Epithel Cells (Auto) 0-3 Urine Bacteria (Auto) Few 05/03/19 19:28 WBC RBC Hgb Hct MCV MCH MCHC RDW Plt Count MPV Absolute Neuts (auto) Neutrophils % Lymphocytes % Monocytes % Eosinophils % Basophils % Nucleated RBC % PT with INR INR PTT (Actin FS) Sodium Potassium Chloride Carbon Dioxide Anion Gap BUN Creatinine Est GFR (CKD-EPI)AfAm Est GFR (CKD-EPI)NonAf Random Glucose Calcium Total Bilirubin AST ALT Alkaline Phosphatase Creatine Kinase 50 Troponin I < 0.02 Total Protein Albumin Urine Color Urine Appearance Urine pH Ur Specific [place] Urine Protein Urine Glucose (UA) Urine Ketones Urine Blood Urine Nitrite Urine Bilirubin Urine Urobilinogen Ur Leukocyte Esterase Urine WBC (Auto) Urine RBC (Auto) U Epithel Cells (Auto) Urine Bacteria (Auto) ASSESSMENT/PLAN: 83 year old male with a past medical history of RBBB/LAFB s/p medtronic pacemaker, CAD s/p 3 stents, hypertension, hyperlipidemia, diabetes mellitus, recent hip fracture and recent urologic stent placement this week presented to the hospital s/p syncopal episode at home and admitted for the treatment of acute subdural hematoma #Acute Subdural Hematoma: small and 6mm in size/ likely 2/2 trauma from fall -Dr. Gomez consulted, no acute neurosurgical intervention indicated -admit to ICU and frequent neurochecks q1 hour for weakness/sensory deficits, speech deficits -elevate head of bed -BP control -repeat head CT Sunday -NPO for now except meds, can do bedside swallow in AM -speech/swallow evaluation #Syncopal Episode: -pacemaker interrogated by ER with negative findings -cardiology consulted -echocardiogram ordered #Urinary Tract Infection: s/p stent placement and valencia insertion and followed by removal -on day 2/ of levaquin, start with day 3 tomorrow -UA and urine culture #Coronary Artery Disease: chronic, s/p 3 stents -continue atorvastatin -continue ranolazine due to being symptomatic #Diabetes Mellitus: not hypoglycemic -levemir 30 AM -BGMs -ISS #FEN -IVF @ 75 cc/hr of NS -check lytes in Am -NPO for now #Prophylaxis -holding chemoprophylaxis; SCDs #Disposition -admit ICU Visit type - Emergency Visit Emergency Visit: No - New Patient This patient is new to me today: Yes Date on this admission: 05/04/19 - Critical Care Critical Care patient: Yes Total Critical Care Time (in minutes): 36 Critical Care Statement: The care of this patient involved high complexity decision making to prevent further life threatening deterioration of the patient 's condition and/or to evaluate & treat vital organ system(s) failure or risk of failure. ATTENDING PHYSICIAN STATEMENT I saw and evaluated the patient. I reviewed the resident's note and discussed the case with the resident. I agree with the resident's findings and plan as documented. SUBJECTIVE: OBJECTIVE: ASSESSMENT AND PLAN:
--- NOTE | 2019-05-03 20:58 | CONSULT ---
Consult Consult Specialty:: PulCM Reason for Consultation:: SDH - History of Present Illness Chief Complaint: fall History of Present Illness: This is an 83 yo man DM, CAD s/p PCI x3, PPM frequent falls including a R femur fracture in September 2018 who recent urological procedure to remove urolith c/b UTI t/w Levaquin. He was seen in urology clinic yesterday for cath removal. On day of admission patient had a syncopal episode c/b fall. He was taken to the ED for evaluation and on NCHCT was found to have shows traumatic subdural hemorrhage, 6mm. Interrogation of pacemaker without any arrhythmias, pacemaker functioning without issues.Of note in 2005 he suffered a syncopal episode r/t bradycardia. MEdtronic interrogation PPM: no arrhythmias noted, pacemaker functioning without issues. Neurosurgery was consulted and patient was transferred to ICU for continued care and monitoring. - History Source History Provided By: Patient Limitations to Obtaining History: No Limitations - Past Medical History Cardio/Vascular: Yes: CAD (s/p stents), HTN, Hyperlipdemia, SD Gastrointestinal: Yes: GI Bleed, Hemorrhoids Endocrine: Yes: Diabetes Mellitus - Past Surgical History Past Surgical History: Yes: Appendectomy, Cholecystectomy, Stent, Upper Endoscopy - Alcohol/Substance Use Hx Alcohol Use: No - Smoking History Smoking history: Never smoked Have you smoked in the past 12 months: No Aproximately how many cigarettes per day: 0 If you are a former smoker, when did you quit?: 28 years ago - Social History ADL: Independent Home Medications - Allergies Allergies/Adverse Reactions: Allergies Allergy/AdvReac Type Severity Reaction Status Date / Time No Known Drug Allergies Allergy Verified 05/03/19 14:01 SEAFOOD Allergy Severe Swelling Uncoded 05/03/19 14:01 - Home Medications Home Medications: Ambulatory Orders Ranolazine [Ranexa -] 500 mg PO BID 07/09/16 Aspirin [ASA -] 81 mg PO DAILY 09/23/17 Atorvastatin Ca [Lipitor] 10 mg PO DAILY 09/23/17 Docusate Sodium [Colace] 100 cap PO BID 05/01/19 Levofloxacin [Levaquin] 750 mg PO DAILY 5 Days #5 tablet 05/01/19 Insulin Glargine,Hum.rec.anlog [Carmen Ksier U-100] 30 unit SQ DAILY Linagliptin [Tradjenta] 5 mg PO DAILY 05/03/19 Melatonin 5 mg PO DAILY 05/03/19 Omeprazole 20 mg PO DAILY 05/03/19 Family Medical History Family History: Unremarkable Review of Systems - Review of Systems Constitutional: reports: No Symptoms HENT: reports: No Symptoms Neck: reports: No Symptoms Cardiovascular: reports: No Symptoms Gastrointestinal: reports: Constipation Genitourinary: reports: No Symptoms Neurological: reports: No Symptoms Physical Exam Vital Signs: Vital Signs Temperature 97.3 F L 05/03/19 13:10 Pulse Rate 79 05/03/19 20:30 Respiratory Rate 16 05/03/19 20:30 Blood Pressure 135/55 L 05/03/19 20:30 O2 Sat by Pulse Oximetry (%) 100 05/03/19 19:30 Constitutional: Yes: Well Nourished, No Distress Eyes: Yes: Conjunctiva Clear, EOM Intact, PERRL HENT: Yes: Normocephalic Neck: Yes: Supple, Trachea Midline Respiratory: Yes: CTA Bilaterally Gastrointestinal: Yes: Normal Bowel Sounds, Soft Musculoskeletal: Yes: WNL Extremities: Yes: WNL Edema: No Neurological: Yes: WNL, Alert, Oriented, Cran Nerves II-XII Intact ...Motor Strength: WNL Psychiatric: Yes: Alert, Oriented Labs: CBC, BMP 05/03/19 15:00 05/03/19 15:00 Current Medications Atorvastatin Calcium (Lipitor -) 10 mg PO HS [facility] Chlorhexidine Gluconate (Hibiclens For Decolonization -) 1 applic TP HS [facility] Docusate Sodium (Colace -) 100 mg PO BID [facility] Insulin Aspart (Novolog Vial Sliding Scale -) 1 vial SQ ACHS [facility]; Protocol Insulin Detemir (Levemir Vial) 30 units SQ AM [facility] Levofloxacin 500 mg/ (Levofloxacin 250 mg) 750 mg PO DAILY@0600 [facility] Melatonin (Melatonin) 5 mg PO HS [facility] Mupirocin (Bactroban Ointment (For Decolonization) -) 1 applic NS BID [facility] Stop: 05/08/19 21:59 Pantoprazole Sodium (Protonix -) 20 mg PO DAILY [facility] Ranolazine (Ranexa -) 500 mg PO BID [facility] Imaging - Results Cat Scan: Report Reviewed, Image Reviewed EKG: Report Reviewed (90 bpm, LAD, RBBB + LAFD, no apparent pacer spikes, no ST segment elevations), Image Reviewed Problem List - Problems (1) Subdural hematoma, acute Code(s): S06.5X9A - TRAUM SUBDR HEM W LOC OF UNSP DURATION, INIT (2) Syncope Code(s): R55 - SYNCOPE AND COLLAPSE Qualifiers: Syncope type: unspecified Qualified Code(s): R55 - Syncope and collapse (3) CAD (coronary artery disease) Code(s): I25.10 - ATHSCL HEART DISEASE OF [place] CORONARY ARTERY W/O ANG PCTRS Assessment/Plan a/p: 83 yo man recent UTI on ABX s/p fall c/b subdural hemorrhage w/o neurologic symptoms at this time -Neurosurgery following -frequent neuro checks, q1hr for 6hr then q2hrs -Plan for repeat NCHCT on Sunday AM unless there are changes in neuro exam -hold ASA -Glucose cotrol -SCD for DVT prophylaxis -passed bedside swallow, ok to advance diet -cont lovenox course started as OP for UTI -ICU monitoring
[2019-05-03] MEDS ORDERED: DOCUSATE SODIUM 100 MG CAPSULE (FP) PO SCH (22:00)
[2019-05-03] MEDS: RANOLAZINE E.R. 500 MG TABLET (FP) PO SCH (22:42)
[2019-05-03] MEDS: DOCUSATE SODIUM 100 MG CAPSULE (FP) PO SCH (22:42)
[2019-05-03] MEDS: INSULIN SLIDING SCALE (NOVOLOG) 1 VIAL SQ SCH (22:46)
[2019-05-03] MEDS: MUPIROCIN 2% TOPICAL OINTMENT FOR DECOLONIZATION NS SCH (23:21)
[2019-05-03] MEDS: CHLORHEXIDINE GLUCONATE 4% CLEANSER FOR DECOLONIZATION TP SCH (23:21)
--- NOTE | 2019-05-03 23:55 | CONSULT ---
Consult - text type - Consultation Consultation Note: NEUROSURGERY CONSULTATION Drew Cuevas is an 83 year old male who has a history of multiple falls. He describes initial fall prompting hospitalization in 2005. He was evaluated for arrythmia (Afib) with a Holter monitor and suffered a syncopal episode while in the hospital which correlated with a 7 minute cardiac event. A pacemaker was placed. The patient has also had falls subsequent to episodes of dehydration and hypoglycemia. He fractured his Right femur in September and was treated successfully by Dr. Rogers. He gives a history of recent procedures and a fall yesterday in the bathroom. The patient developed pains which prompted evaluation in the [facility] ER. Head CT demonstrates Left Interhemispheric subdural hematoma with some layering on the tentorium. There is no significant mass effect. On Physical Examination, he is wide awake and alert. He is oriented x 3 and is able to relate his history in detail. He has no pronator drift and does not extinguish to double simultaneous stimulation. At this point, surgical evacuation is not required. - GI/DVT prophylaxis - ICU observation - Repeat Head CT without contrast Sunday morning (earlier if Neurological decline) - Will follow
[2019-05-04] MEDS: INSULIN SLIDING SCALE (NOVOLOG) 1 VIAL SQ SCH ×4 (06:10→21:27)
[2019-05-04] MEDS: levoFLOXacin 500 MG, levoFLOXacin 250 MG PO SCH (06:23)
[2019-05-04 06:36] LABS: HEMATOCRIT 31.1 % (35.4-49); HEMOGLOBIN 11.1 GM/dL (11.7-16.9); MCHC 35.6 g/dl (32.0-35.9); MEAN CELL VOLUME 92.7 fl (80-96); MEAN PLT VOLUME 9.2 fl (7.5-11.1); PLATELET COUNT 141 K/MM3 (134-434); RBC 3.36 M/mm3 (4.00-5.60); RDW 12.9 % (11.9-15.9); WHITE BLOOD COUNT 5.9 K/mm3 (4.0-10.0)
[2019-05-04 07:07] LABS: ALBUMIN 2.7 g/dl (3.4-5.0); BLOOD UREA NITROGEN 24.5 mg/dL (7-18); CALCIUM 8.4 mg/dL (8.5-10.1); CREATININE 1.1 mg/dL (0.55-1.3); MAGNESIUM 2.2 mg/dL (1.8-2.4); POTASSIUM 4.6 mmol/L (3.5-5.1); TOT PROT 5.4 g/dl (6.4-8.2)
[2019-05-04 07:23] LABS: INR 0.97 (0.83-1.09); PROTHROMBIN TIME (PATIENT) 11.4 SEC (9.7-13.0)
--- NOTE | 2019-05-04 08:18 | CON.CARD ---
Consult Consult Specialty:: Cardiology Referred by:: Dr. Gray Reason for Consultation:: CAD, PPM - History of Present Illness Chief Complaint: FALL History of Present Illness: 83M PMH Medtr[employer] PPM revised in 2016, CAD s/p multivessel PCI ([place], pt of Dr. Erickson), carotid disease presents to ER after unwitnessed fall at home in setting of recent UTI and urinary incontinence. CT showed subdural hematoma for which N-surgery was consulted and is following the patient in ICU. He is alert and oriented x 3. Denies antecedent CP, SOB, palps. Did have chills. Went to bathroom, woke up on floor; head was hurting. No hypotension noted in ER; O2 100%RA UTI began about one week ago when he began having urinary incontinence and saw Dr. Sheffield in office who placed a Reynolds temporarily and started abx. Patient then had intermittent weakness, nausea and chills. Came to ER, abx were changed. Medtronic PPM interrogated: AAI 60; -VS 90%; battery life estimated 11 years; TELE thus far unremarkable - History Source History Provided By: Patient, Medical Record - Past Medical History Cardio/Vascular: Yes: CAD (s/p stents), HTN, Hyperlipdemia, [place] Gastrointestinal: Yes: GI Bleed, Hemorrhoids Endocrine: Yes: Diabetes Mellitus Additional Medical History: HIP surgery - Past Surgical History Past Surgical History: Yes: Appendectomy, Cholecystectomy, Stent, Upper Endoscopy - Alcohol/Substance Use Hx Alcohol Use: No - Smoking History Smoking history: Never smoked Have you smoked in the past 12 months: No Aproximately how many cigarettes per day: 0 If you are a former smoker, when did you quit?: 28 years ago - Social History ADL: Independent History of Recent Travel: No Home Medications - Allergies Allergies/Adverse Reactions: Allergies Allergy/AdvReac Type Severity Reaction Status Date / Time No Known Drug Allergies Allergy Verified 05/03/19 14:01 SEAFOOD Allergy Severe Swelling Uncoded 05/03/19 14:01 - Home Medications Home Medications: Ambulatory Orders Ranolazine [Ranexa -] 500 mg PO BID 07/09/16 Aspirin [ASA -] 81 mg PO DAILY 09/23/17 Atorvastatin Ca [Lipitor] 10 mg PO DAILY 09/23/17 Docusate Sodium [Colace] 100 cap PO BID 05/01/19 Levofloxacin [Levaquin] 750 mg PO DAILY 5 Days #5 tablet 05/01/19 Insulin Glargine,Hum.rec.anlog [Carmen Kiser U-100] 30 unit SQ DAILY Linagliptin [Tradjenta] 5 mg PO DAILY 05/03/19 Melatonin 5 mg PO DAILY 05/03/19 Omeprazole 20 mg PO DAILY 05/03/19 Family Medical History Family History: Unremarkable Review of Systems Findings/Remarks: see HPI - Review of Systems Constitutional: reports: Lethargy, Malaise Eyes: denies: No Symptoms, Blind Spots, Blurred Vision, Double Vision, Eye Pain , Floaters, Photophobia, Recent Change in Vision, Other HENT: denies: No Symptoms, Difficult Swallowing, Ear Discharge, Ear Pain, Epistaxis, Gingival Bleeding, Hearing Loss, Mouth Swelling, Nasal Congestion, Ocular Prosthesis, Throat Pain, Toothache, Ringing in Ears, Other Neck: denies: No Symptoms, Decreased ROM, Lumps, Pain on Movement, Stiffness, Swollen Glands, Tenderness, Other Cardiovascular: denies: No Symptoms, Chest Pain, Edema, Palpitations, Shortness of Breath, Other Respiratory: denies: No Symptoms, Cough, Exercise Intolerance, Hemoptysis, Orthopnea, PND, Snoring, SOB, SOB on Exertion, Wheezing, Other Gastrointestinal: denies: No Symptoms, Abdominal Pain, Bloating, Constipation, Diarrhea, Dysphagia, Indigestion, Melena, Nausea, Rectal Bleeding, Vomiting, Vomiting Blood, Other Genitourinary: reports: Burning, Dysuria, Frequency, Incontinence Breasts: denies: No Symptoms Reported, See HPI, Breast Implants, Discharge from Nipple, Lumps, Pain, Skin Changes, Other Musculoskeletal: denies: No Symptoms, Back Pain, Crepitus, Decreased ROM, Extremity Pain, Joint Pain, Joint Swelling, Muscle Pain, Muscle Cramps, Muscle Weakness, Other Integumentary: denies: No Symptoms, Blister, Bruising, Change in Color, Eczema, Erythema, Incision, Lesions, Lump, Pallor, Pruritis, Rash, Wound, Other Neurological: denies: No Symptoms, Change in LOC, Change in Speech, Confusion, Dizziness, Headache, Incoordination, Numbness, Parasthesia, Pre-Existing Deficit , Seizure, Syncope, Tremors, Unsteady Gait, Weakness, Other Endocrine: denies: No Symptoms, Excessive Sweating, Flushing, Increased Hunger, Increased Thirst, Intolerance to Cold, Intolerance to Heat, Unexplained Weight Gain, Unexplained Weight Loss, Other Hematology/Lymphatic: denies: No Symptoms, Easily Bruised, Excessive Bleeding, Swollen Glands, Other Psychiatric: denies: No Symptoms, Altered Sleep Pattern, Anxiety, Depression, Hallucinations, Panic, Paranoia, Suicidal, Other - Risk Factors Known Risk Factors: Yes: Diabetes Mellitus, Smoking, Other (known CAD) Vital Signs: Vital Signs Temperature 98.2 F 05/04/19 02:00 Pulse Rate 60 05/04/19 06:00 Respiratory Rate 14 05/04/19 06:00 Blood Pressure 130/57 L 05/04/19 06:00 O2 Sat by Pulse Oximetry (%) 100 05/04/19 04:00 Constitutional: Yes: No Distress, Calm Eyes: Yes: Conjunctiva Clear, EOM Intact HENT: Yes: Atraumatic Respiratory: Yes: CTA Bilaterally Gastrointestinal: Yes: Soft JVD: No Heart Sounds: Yes: S1, S2 (rrr, no MRG) Edema: No Peripheral Pulses WNL: Yes Neurological: Yes: Alert, Oriented ...Motor Strength: WNL - Other Data Labs, Other Data: CBC, BMP 05/04/19 05:15 05/04/19 05:15 INR, PTT INR 0.97 (0.83-1.09) 05/04/19 05:15 Troponin, BNP 05/03/19 05/03/19 05/03/19 15:00 15:00 19:28 Troponin I < 0.02 < 0.02 < 0.02 Troponin, BNP 05/03/19 05/03/19 05/03/19 15:00 15:00 19:28 Troponin I < 0.02 < 0.02 < 0.02 Laboratory Tests 05/03/19 05/03/19 05/04/19 15:00 19:28 05:15 WBC 5.9 Hgb 11.1 L Plt Count 141 INR Sodium Potassium BUN Creatinine Hemoglobin A1c % Calcium Phosphorus Magnesium Total Bilirubin AST ALT Alkaline Phosphatase Creatine Kinase 50 Troponin I < 0.02 < 0.02 TSH 05/04/19 05/04/19 05/04/19 05:15 05:15 06:20 WBC Hgb Plt Count INR 0.97 Sodium 138 Potassium 4.6 BUN 24.5 H Creatinine 1.1 Hemoglobin A1c % 7.3 H Calcium 8.4 L Phosphorus 3.0 Magnesium 2.2 Total Bilirubin 1.0 AST 21 ALT 21 Alkaline Phosphatase 90 Creatine Kinase Troponin I TSH 0.88 D Imaging - Results X-ray: Image Reviewed Cat Scan: Other (left subdural hematoma) EKG: Image Reviewed (NSR, 1st degree AV block, LAFB, RBBB) Assessment/Plan IMP: Fall, unwitnessed : likely due to volume depletion, infection and suspected orthostatic BP changes. Doubt arrhythmia. Subdural hematoma Recent UTI on abx H/o CAD w/ remote PCI Carotid disease s/p Medtronic PPM, normal device fx Remote hx of GIB due to duodenal ulcer s/p cauterization REC: 1. Management of SDH as per N-surgery 2. Hold ASA, remote hx PCI, poses low risk for temporary d/c; will obtain details/cath reports from Dr. Erickson tomorrow 3. Cont statin, Ranexa. 4. Orthostatics 5. Echo 6. Carotid US 7. Tele 8. Continue Rx UTI as per medical team
--- NOTE | 2019-05-04 09:19 | PN ---
Progress Note (short form) - Note Progress Note: Seen and examined in the ICU Mental status remains stable passed RN bedside swallow eval denies: jacobsen/blurry visions/n/v/confusion Current Medications Atorvastatin Calcium (Lipitor -) 10 mg PO HS [facility] Chlorhexidine Gluconate (Hibiclens For Decolonization -) 1 applic TP HS [facility] Last Admin: 05/03/19 23:21 Dose: 1 applic Docusate Sodium (Colace -) 100 mg PO BID [facility] Last Admin: 05/03/19 22:42 Dose: 100 mg Insulin Aspart (Novolog Vial Sliding Scale -) 1 vial SQ ACHS [facility]; Protocol Last Admin: 05/04/19 06:10 Dose: Not Given Insulin Detemir (Levemir Vial) 30 units SQ DAILY@1000 [facility] Levofloxacin 500 mg/ (Levofloxacin 250 mg) 750 mg PO DAILY@0600 [facility] Last Admin: 05/04/19 06:23 Dose: 750 mg Melatonin (Melatonin) 5 mg PO HS [facility] Mupirocin (Bactroban Ointment (For Decolonization) -) 1 applic NS BID [facility] Stop: 05/08/19 21:59 Last Admin: 05/03/19 23:21 Dose: 1 applic Pantoprazole Sodium (Protonix -) 20 mg PO DAILY [facility] Ranolazine (Ranexa -) 500 mg PO BID [facility] Last Admin: 05/03/19 22:42 Dose: 500 mg Vital Signs Period Temp Pulse Resp BP Sys/Angel Pulse Ox Last 24 Hr 97.3 F-98.2 F 60-88 12-20 115-151/48-83 94-100 Intake & Output 05/01/19 05/02/19 05/03/19 05/04/19 23:59 23:59 23:59 23:59 Intake Total 100 Output Total 400 Balance -300 Weight 87.09 kg CBC, BMP 05/04/19 05:15 05/04/19 05:15 Problem List - Problems (1) Subdural hematoma, acute Code(s): S06.5X9A - TRAUM SUBDR HEM W LOC OF UNSP DURATION, INIT (2) Syncope Code(s): R55 - SYNCOPE AND COLLAPSE Qualifiers: Syncope type: unspecified Qualified Code(s): R55 - Syncope and collapse (3) CAD (coronary artery disease) Code(s): I25.10 - ATHSCL HEART DISEASE OF [place] CORONARY ARTERY W/O ANG PCTRS Assessment/Plan a/p: 83 yo man recent UTI on ABX s/p fall c/b subdural hemorrhage w/o neurologic symptoms at this time -Neurosurgery following -frequent neuro checks, q2hs -Plan for repeat NCHCT on Sunday AM unless there are changes in neuro exam -hold ASA -Glucose control -SCD for DVT prophylaxis -passed bedside swallow, ok to advance diet -cont levaquin course started as OP for UTI -ICU monitoring Bo[place] ACNP Pulm/CCM CCT: 35 Problem List - Problems (1) Subdural hematoma, acute Code(s): S06.5X9A - TRAUM SUBDR HEM W LOC OF UNSP DURATION, INIT (2) Syncope Code(s): R55 - SYNCOPE AND COLLAPSE Qualifiers: Syncope type: unspecified Qualified Code(s): R55 - Syncope and collapse (3) CAD (coronary artery disease) Code(s): I25.10 - ATHSCL HEART DISEASE OF [place] CORONARY ARTERY W/O ANG PCTRS
--- NOTE | 2019-05-04 10:08 | PN ---
Progress Note, Physician Chief Complaint: Subdural Hemotoma S/P fall - Current Medication List Current Medications: Active Medications Atorvastatin Calcium (Lipitor -) 10 mg PO [facility] Chlorhexidine Gluconate (Hibiclens For Decolonization -) 1 applic TP HS [facility] Last Admin: 05/03/19 23:21 Dose: 1 applic Docusate Sodium (Colace -) 100 mg PO BID [facility] Last Admin: 05/03/19 22:42 Dose: 100 mg Insulin Aspart (Novolog Vial Sliding Scale -) 1 vial SQ [facility]; Protocol Last Admin: 05/04/19 06:10 Dose: Not Given Insulin Detemir (Levemir Vial) 30 units SQ DAILY@1000 [facility] Levofloxacin 500 mg/ (Levofloxacin 250 mg) 750 mg PO DAILY@0600 [facility] Last Admin: 05/04/19 06:23 Dose: 750 mg Melatonin (Melatonin) 5 mg PO [facility] Mupirocin (Bactroban Ointment (For Decolonization) -) 1 applic NS BID [facility] Stop: 05/08/19 21:59 Last Admin: 05/03/19 23:21 Dose: 1 applic Pantoprazole Sodium (Protonix -) 20 mg PO DAILY [facility] Ranolazine (Ranexa -) 500 mg PO BID [facility] Last Admin: 05/03/19 22:42 Dose: 500 mg - Objective Vital Signs: Vital Signs Temperature 98.2 F 05/04/19 02:00 Pulse Rate 76 05/04/19 08:00 Respiratory Rate 12 05/04/19 08:00 Blood Pressure 125/61 05/04/19 08:00 O2 Sat by Pulse Oximetry (%) 96 05/04/19 08:26 Constitutional: Yes: Well Nourished, No Distress, Calm Cardiovascular: Yes: Regular Rate and Rhythm Respiratory: Yes: Regular Labs: CBC, BMP 05/04/19 05:15 05/04/19 05:15 INR, PTT INR 0.97 (0.83-1.09) 05/04/19 05:15 Problem List - Problems (1) Subdural hematoma, acute Code(s): S06.5X9A - TRAUM SUBDR HEM W LOC OF UNSP DURATION, INIT (2) Syncope Code(s): R55 - SYNCOPE AND COLLAPSE Qualifiers: Syncope type: unspecified Qualified Code(s): R55 - Syncope and collapse (3) UTI (urinary tract infection) Code(s): N39.0 - URINARY TRACT INFECTION, SITE NOT SPECIFIED
[2019-05-04] MEDS: DOCUSATE SODIUM 100 MG CAPSULE (FP) PO SCH ×2 (10:35→21:26)
[2019-05-04] MEDS: RANOLAZINE E.R. 500 MG TABLET (FP) PO SCH ×2 (10:35→21:26)
[2019-05-04] MEDS: PANTOPRAZOLE 20 MG TABLET (FP) PO SCH (10:35)
[2019-05-04] MEDS: INSULIN (LEVEMIR) 100 UNITS/ML UNITS SQ SCH (10:36)
[2019-05-04] MEDS: MUPIROCIN 2% TOPICAL OINTMENT FOR DECOLONIZATION NS SCH ×2 (10:37→21:27)
--- NOTE | 2019-05-04 11:41 | EKG ---
Test Reason : Blood Pressure : / mmHG Vent. Rate : 090 BPM Atrial Rate : 090 BPM P-R Int : 242 ms QRS Dur : 132 ms QT Int : 388 ms P-R-T Axes : 052 -63 053 degrees QTc Int : 474 ms POOR DATA QUALITY, INTERPRETATION MAY BE ADVERSELY AFFECTED SINUS RHYTHM WITH 1ST DEGREE A-V BLOCK RIGHT BUNDLE BRANCH BLOCK LEFT ANTERIOR FASCICULAR BLOCK ABNORMAL ECG WHEN COMPARED WITH ECG OF 01-MAY-2019 11:49, [place] INTERVAL HAS INCREASED Confirmed by NANCIE REESE MD ([id number]) on 05/04/2019 11:40:49 AM Referred By: Confirmed By:NANCIE REESE MD
--- NOTE | 2019-05-04 20:14 | PN ---
Progress Note (short form) - Note Progress Note: Patient remains stable and neurologically non-focal. Plan for CT Head without contrast in AM. If no change identified, and patient continues to do well, will likely be ready for discharge from ICU from Neurosurgery standpoint. - CT in AM - Will follow
[2019-05-04] MEDS: MELATONIN 5 MG TABLETS PO SCH (21:26)
[2019-05-04] MEDS: ATORVASTATIN CA 10 MG TABLET (FP) PO SCH (21:26)
[2019-05-04] MEDS: CHLORHEXIDINE GLUCONATE 4% CLEANSER FOR DECOLONIZATION TP SCH (21:27)
[2019-05-05] MEDS: INSULIN SLIDING SCALE (NOVOLOG) 1 VIAL SQ SCH ×4 (06:00→21:49)
[2019-05-05] MEDS: levoFLOXacin 500 MG, levoFLOXacin 250 MG PO SCH (06:00)
[2019-05-05 08:42] LABS: BASO % 0.3 % (0-2.0); EOS % 3.3 % (0-4.5); HEMATOCRIT 33.7 % (35.4-49); HEMOGLOBIN 11.9 GM/dL (11.7-16.9); LYMPH % 16.7 % (8-40); MCH 32.5 pg (25.7-33.7); MCHC 35.2 g/dl (32.0-35.9); MEAN CELL VOLUME 92.2 fl (80-96); MEAN PLT VOLUME 8.7 fl (7.5-11.1); MONO % 8.3 % (3.8-10.2); NEUT % 71.4 % (42.8-82.8); PLATELET COUNT 164 K/MM3 (134-434); RBC 3.66 M/mm3 (4.00-5.60); RDW 12.9 % (11.9-15.9); WHITE BLOOD COUNT 5.2 K/mm3 (4.0-10.0)
[2019-05-05 09:09] LABS: BLOOD UREA NITROGEN 18.8 mg/dL (7-18); CALCIUM 8.6 mg/dL (8.5-10.1); CREATININE 1.1 mg/dL (0.55-1.3); MAGNESIUM 2.2 mg/dL (1.8-2.4); POTASSIUM 4.4 mmol/L (3.5-5.1)
[2019-05-05] MEDS: RANOLAZINE E.R. 500 MG TABLET (FP) PO SCH ×2 (09:19→21:48)
[2019-05-05] MEDS: MUPIROCIN 2% TOPICAL OINTMENT FOR DECOLONIZATION NS SCH ×2 (09:19→21:37)
[2019-05-05] MEDS: PANTOPRAZOLE 20 MG TABLET (FP) PO SCH (09:19)
[2019-05-05] MEDS: DOCUSATE SODIUM 100 MG CAPSULE (FP) PO SCH ×2 (09:19→21:48)
[2019-05-05] MEDS: INSULIN (LEVEMIR) 100 UNITS/ML UNITS SQ SCH (09:21)
--- NOTE | 2019-05-05 11:30 | PN ---
Teaching Attending Note Name of Resident: Clemencia Gray ATTENDING PHYSICIAN STATEMENT I saw and evaluated the patient. I reviewed the resident's note and discussed the case with the resident. I agree with the resident's findings and plan as documented. SUBJECTIVE: Patient seen and examined in the ICU. Awake and alert. Denies CURIEL, dizziness, BOV, etc. No CP or SOB. CT Head: improving SDH Intake & Output 05/02/19 05/03/19 05/04/19 05/05/19 23:59 23:59 23:59 23:59 Intake Total 700 100 Output Total 1100 450 Balance -400 -350 Weight 192 lb 191 lb 11.2 oz Last Vital Signs Temp Pulse Resp BP Pulse Ox 97.7 F 63 11 156/63 96 05/05/19 06:00 05/05/19 06:00 05/05/19 06:00 05/05/19 06:00 05/05/19 02:59 Active Medications Atorvastatin Calcium (Lipitor -) 10 mg PO [facility] Last Admin: 05/04/19 21:26 Dose: 10 mg Chlorhexidine Gluconate (Hibiclens For Decolonization -) 1 applic TP [facility] Last Admin: 05/04/19 21:27 Dose: 1 applic Docusate Sodium (Colace -) 100 mg PO BID [facility] Last Admin: 05/05/19 09:19 Dose: 100 mg Insulin Aspart (Novolog Vial Sliding Scale -) 1 vial SQ [facility]; Protocol Last Admin: 05/05/19 06:00 Dose: Not Given Insulin Detemir (Levemir Vial) 30 units SQ DAILY@1000 [facility] Last Admin: 05/05/19 09:21 Dose: 30 units Levofloxacin 500 mg/ (Levofloxacin 250 mg) 750 mg PO DAILY@0600 [facility] Last Admin: 05/05/19 06:00 Dose: 750 mg Melatonin (Melatonin) 5 mg PO [facility] Last Admin: 05/04/19 21:26 Dose: 5 mg Mupirocin (Bactroban Ointment (For Decolonization) -) 1 applic NS BID [facility] Stop: 05/08/19 21:59 Last Admin: 05/05/19 09:19 Dose: 1 applic Pantoprazole Sodium (Protonix -) 20 mg PO DAILY [facility] Last Admin: 05/05/19 09:19 Dose: 20 mg Ranolazine (Ranexa -) 500 mg PO BID [facility] Last Admin: 05/05/19 09:19 Dose: 500 mg Constitutional: Yes: Awake and alert, No Distress Eyes: Yes: Conjunctiva Clear, EOM Intact HENT: Yes: Atraumatic Respiratory: Yes: CTA Bilaterally Gastrointestinal: Yes: Soft JVD: No Heart Sounds: Yes: S1, S2 Edema: No Peripheral Pulses WNL: Yes Neurological: Yes: Alert, Oriented ...Motor Strength: WNL Laboratory Results - last 24 hr 05/04/19 05/04/19 05/05/19 16:53 21:08 05:53 WBC RBC Hgb Hct MCV MCH MCHC RDW Plt Count MPV Absolute Neuts (auto) Neutrophils % Lymphocytes % Monocytes % Eosinophils % Basophils % Nucleated RBC % Sodium Potassium Chloride Carbon Dioxide Anion Gap BUN Creatinine Est GFR (CKD-EPI)AfAm Est GFR (CKD-EPI)NonAf POC Glucometer 173 198 150 Random Glucose Calcium Phosphorus Magnesium 05/05/19 05/05/19 05/05/19 08:00 08:00 11:29 WBC 5.2 RBC 3.66 L Hgb 11.9 Hct 33.7 L MCV 92.2 MCH 32.5 MCHC 35.2 RDW 12.9 Plt Count 164 MPV 8.7 Absolute Neuts (auto) 3.7 Neutrophils % 71.4 Lymphocytes % 16.7 D Monocytes % 8.3 Eosinophils % 3.3 D Basophils % 0.3 Nucleated RBC % 0 Sodium 135 L Potassium 4.4 Chloride 102 Carbon Dioxide 27 Anion Gap 6 L BUN 18.8 H Creatinine 1.1 Est GFR (CKD-EPI)AfAm 71.57 Est GFR (CKD-EPI)NonAf 61.75 POC Glucometer 173 Random Glucose 164 H Calcium 8.6 Phosphorus 3.0 Magnesium 2.2 Problem List - Problems (1) Subdural hematoma, acute Code(s): S06.5X9A - TRAUM SUBDR HEM W LOC OF UNSP DURATION, INIT (2) Syncope Code(s): R55 - SYNCOPE AND COLLAPSE Qualifiers: Syncope type: unspecified Qualified Code(s): R55 - Syncope and collapse (3) CAD (coronary artery disease) Code(s): I25.10 - ATHSCL HEART DISEASE OF [place] CORONARY ARTERY W/O ANG PCTRS Assessment/Plan SDH due to fall History of multiple recent falls PO as tolerated PT evaluation Check Orthostatics O2 as needed Neuro checks ASA on hold Noted Levaquin for UTI Glycemic control Floor Dr Lucas
--- NOTE | 2019-05-05 12:17 | PN ---
Progress Note, Physician Chief Complaint: seen and examined in ICU repeat ct head done decrease in SDH - Current Medication List Current Medications: Active Medications Atorvastatin Calcium (Lipitor -) 10 mg PO [facility] Last Admin: 05/04/19 21:26 Dose: 10 mg Chlorhexidine Gluconate (Hibiclens For Decolonization -) 1 applic TP [facility] Last Admin: 05/04/19 21:27 Dose: 1 applic Docusate Sodium (Colace -) 100 mg PO BID [facility] Last Admin: 05/05/19 09:19 Dose: 100 mg Insulin Aspart (Novolog Vial Sliding Scale -) 1 vial SQ [facility]; Protocol Last Admin: 05/05/19 11:33 Dose: 2 units Insulin Detemir (Levemir Vial) 30 units SQ DAILY@1000 [facility] Last Admin: 05/05/19 09:21 Dose: 30 units Levofloxacin 500 mg/ (Levofloxacin 250 mg) 750 mg PO DAILY@0600 [facility] Last Admin: 05/05/19 06:00 Dose: 750 mg Melatonin (Melatonin) 5 mg PO [facility] Last Admin: 05/04/19 21:26 Dose: 5 mg Mupirocin (Bactroban Ointment (For Decolonization) -) 1 applic NS BID [facility] Stop: 05/08/19 21:59 Last Admin: 05/05/19 09:19 Dose: 1 applic Pantoprazole Sodium (Protonix -) 20 mg PO DAILY [facility] Last Admin: 05/05/19 09:19 Dose: 20 mg Ranolazine (Ranexa -) 500 mg PO BID [facility] Last Admin: 05/05/19 09:19 Dose: 500 mg - Objective Vital Signs: Vital Signs Temperature 97.7 F 05/05/19 06:00 Pulse Rate 63 05/05/19 06:00 Respiratory Rate 11 05/05/19 06:00 Blood Pressure 156/63 05/05/19 06:00 O2 Sat by Pulse Oximetry (%) 96 05/05/19 02:59 Constitutional: Yes: Calm Neck: Yes: Trachea Midline Cardiovascular: Yes: Regular Rate and Rhythm, S1, S2 Respiratory: Yes: CTA Bilaterally Gastrointestinal: Yes: Normal Bowel Sounds, Soft Neurological: Yes: Alert, Oriented Labs: CBC, BMP 05/05/19 08:00 05/05/19 08:00 INR, PTT INR 0.97 (0.83-1.09) 05/04/19 05:15 Problem List - Problems (1) Subdural hematoma, acute Assessment/Plan: CT head shows decrease in SDH GLORIA on board aspirin on hold carotid doppler show small to moderate size plaques in left CCA on statin Code(s): S06.5X9A - TRAUM SUBDR HEM W LOC OF UNSP DURATION, INIT (2) UTI (urinary tract infection) Assessment/Plan: levaquin Code(s): N39.0 - URINARY TRACT INFECTION, SITE NOT SPECIFIED (3) CAD (coronary artery disease) Assessment/Plan: s/pPCI on statin and ranexa aspirin on hold bc of fall Code(s): I25.10 - ATHSCL HEART DISEASE OF [place] CORONARY ARTERY W/O ANG PCTRS (4) Diabetes Assessment/Plan: hgba1c 7.3 bgm noted on levemir Code(s): E11.9 - TYPE 2 DIABETES MELLITUS WITHOUT COMPLICATIONS Qualifiers: Diabetes mellitus type: type 2
--- NOTE | 2019-05-05 12:21 | CONSULT ---
Admitting History and Physical - Primary Care Physician PCP: Estela Gray - Admission History of Present Illness: 83 yo man recent UTI on ABX s/p fall c/b subdural hemorrhage w/o neurologic symptoms at this time Head CT demonstrates Left Interhemispheric subdural hematoma with some layering on the tentorium. There is no significant mass effect. Selected Entries 05/04/19 05/04/19 05/05/19 09:57 15:52 02:00 Breakfast 100% Diet Tolerated Lunch 100% Temperature 98.7 F 05/05/19 05/05/19 06:00 10:00 Breakfast 50% Diet Tolerated Fair Lunch Temperature 97.7 F Laboratory Tests 05/04/19 05/05/19 05:15 08:00 WBC 5.9 5.2 Pt tolerating po diet. He does report coughing while eating occasionally, once a week, and has a h/o PNA 2 years ago. History Source: Patient Limitations to Obtaining History: No Limitations - Past Medical History Cardiovascular: Yes: CAD (s/p stents), HTN, Hyperlipdemia, [place] Gastrointestinal: Yes: GI Bleed, Hemorrhoids Endocrine: Yes: Diabetes Mellitus - Past Surgical History Past Surgical History: Yes: Appendectomy, Cholecystectomy, Stent, Upper Endoscopy - Smoking History Smoking history: Never smoked Have you smoked in the past 12 months: No Aproximately how many cigarettes per day: 0 If you are a former smoker, when did you quit?: 28 years ago - Alcohol/Substance Use Hx Alcohol Use: No - Social History ADL: Independent History of Recent Travel: No History - Admission Reason For Visit: ACUTE SUBDURAL HEMATOMA, SYNCOPE - Diagnostics X-ray: Report Reviewed CT Scan: Report Reviewed - General Mental Status: Alert and Oriented, Awake and Alert, Able to Follow Commands Attention: Intact Ability to Follow Directions: Excellent Head/Neck Control: WFL - Hearing Hearing: Impaired, Right Ear Hearing Aide: Yes (right only) With Patient: Yes Speech Evaluation - Communication Primary Language: [place] Communication: Yes: Within Normal Limits Oral Expression Ability: Yes: No Impairment - Speech Production Able to Make Needs Known: Yes: WNL Intelligibility: Yes: WNL - Speech Characteristics Voice Loudness: Normal Voice Pitch: Yes: Normal Voice Phonatory-based Quality: Yes: Normal Speech Pattern: Normal Speech Clarity: < 100% Nasal Resonance: Normal Articulation: Yes: Precise Rate of Speech: Intact - Language/Auditory Comprehension Follows: Yes: 2 Stage Simple Commands - Language/Verbal Expression Able to Respond to Simple Queries: Yes: WNL Able to Communicate Wants and Needs: Yes: WNL Functional Communication Status: Yes: WNL Attention: Yes: Intact - Memory/Perception termite control servicer Memory: Yes: WNL Short Term Memory: Yes: WNL - Swallow Evaluation/Bedside Assessment Current Nutritional Intake: Regular, Thin Liquids Oral Secretions: Yes: WFL Dentition: Yes: Adequate, Missing Teeth Facial Symmetry at Rest: Symmetrical Facial Symmetry on Retraction: Symmetrical Facial Movement: Controlled Against Resistance Opening: Normal Against Resistance Closing: Normal Pucker Lips: Normal Smile: Normal Lingual Movement: Normal, Symmetric Lingual Speed of Movement: Normal Lingual Movement Strgth Against Opposition: Normal Lingual Movement Characteristics: Normal Bite Reflex: Present Velopharyngeal Movement: Normal Laryngeal Elevation: WFL Laryngeal Movement: Able to Palpate Rate of Intake: WFL Bolus Size: WFL Labial Seal: WFL Chewing: WFL Oral Prep Time: WFL A-P Transit: WFL Pocketing: None Timing of Swallow: WFL Coughing/Throat Clear: No Change in Voice: No Recommendations - Speech Evaluation, Impression/Plan Impression: SDH -Speech,swallow, cognition, language intact. Tolerating diet well. h/o occasional stasis/cough while eating. MBS as out pt may be beneficial. - Dysphagia Impressions/Plan Dysphagia Impressions: Minimal Impairment *Silent aspiration: cannot be R/O at bedside Dysphagia Treatment Plan: Elevate HOB during feed, OOB for meals (when able) - Recommendations Diet Consistency: Regular Medication Administration: Whole with water Liquids: Thin Liquids
--- NOTE | 2019-05-05 14:06 | ECHO ---
Name: GRACE CAPONE Exam:Adult Echocardiogram Study Date: 05/05/2019 08:24 AM Age: 83 yrs Reason For Study: SYNCOPE Height: 69 in Weight: 192 lb BSA: 2.0 m2 MMode/2D Measurements & Calculations IVSd: 1.2 cm Ao root diam: 3.5 cm LVIDd: 4.3 cm LA dimension: 3.0 cm LVIDs: 3.0 cm LVPWd: 1.1 cm EDV(Teich): 81.1 ml LVOT diam: 2.0 cm ESV(Teich): 35.2 ml LAV (MOD-bp): 36.1 ml Doppler Measurements & Calculations Ao V2 max: 115.4 cm/sec AI max fan: 347.5 cm/sec Ao max P.3 mmHg AI max P.3 mmHg AI P1/2t: 1373 msec AI dec slope: 74.1 cm/sec2 YUSEF(V,D): 3.0 cm2 LV V1 max P.6 mmHg TR max fan: 226.2 cm/sec LV V1 max: 107.7 cm/sec TR max P.6 mmHg PA V2 max: 96.4 cm/sec Med Peak E' Fan: 4.8 cm/sec PA max P.7 mmHg Lat Peak E' Fan: 6.2 cm/sec PI Vmax: 89.6 cm/sec Procedure A complete two-dimensional transthoracic echocardiogram was performed (2D, M-mode, Doppler and color flow Doppler). Left Ventricle The left ventricle is normal in size. Basal septum appears mildly hypertrophied. Left ventricular sys tolic function is normal. Ejection Fraction = 55-60%. Grade I diastolic dysfunction, (abnormal relaxation p attern). No regional wall motion abnormalities noted. Right Ventricle The right ventricle is normal size. The right ventricular systolic function is normal. Atria The left atrial size is normal. LA volume index is 18 ml/m2. Right atrial size is normal. Mitral Valve There is mild mitral annular calcification. There is no mitral regurgitation noted. Tricuspid Valve The tricuspid valve is normal in structure and function. There is mild tricuspid regurgitation. Pulmo nary artery systolic pressure is at least 31 mmHg if RA pressure is assumed 8 mmHg (dilated IVC). Aortic Valve There is mild aortic sclerosis.;. Mild aortic regurgitation. Pulmonic Valve The pulmonic valve is not well visualized. Great Vessels The aortic root is normal size. Pericardium/Pleura There is no pericardial effusion. Interpretation Summary The left ventricle is normal in size. Basal septum appears mildly hypertrophied Left ventricular systolic function is normal. No regional wall motion abnormalities noted. Ejection Fraction = 55-60%. Grade I diastolic dysfunction, (abnormal relaxation pattern). The right ventricular systolic function is normal. The left atrial size is normal. Right atrial size is normal. There is mild mitral annular calcification. There is mild tricuspid regurgitation. Pulmonary artery systolic pressure is at least 31 mmHg if RA pressure is assumed 8 mmHg (dilated IVC) There is mild aortic sclerosis. Mild aortic regurgitation. There is no pericardial effusion. Kirk Chaudhary MD 05/05/2019 02:05 PM
--- NOTE | 2019-05-05 14:18 | PN ---
Progress Note (short form) - Note Progress Note: Patient remains stable. Repeat Head CT shows maturation of subdural hematoma ( intrahemispheric on Left with layering on Tentorium). Patient may come out of ICU and be prepared for discharge from Neurosurgery standpoint. Agree with Physical Therapy assessment.
--- NOTE | 2019-05-05 15:41 | PN ---
Physical Exam: SUBJECTIVE: Patient seen and examined at bedside. pt states he feels disoriented. pt states that he has no acute complaints and has no pain. pt denies dysuria although he endorses polyuria. OBJECTIVE: Vital Signs Period Temp Pulse Resp BP Sys/Angel Pulse Ox Last 24 Hr 64 F-98.7 F 60-78 11-21 104-172/47-93 96 GENERAL: The patient is awake, alert, and fully oriented, in no acute distress. HEAD: Normal with no signs of trauma. EYES: PERRL, extraocular movements intact, sclera anicteric, conjunctiva clear ENT: oropharynx clear without exudates, moist mucous membranes. LUNGS: Breath sounds equal, clear to auscultation bilaterally, no wheezes, no crackles, no accessory muscle use. HEART: Regular rate and rhythm, S1, S2 ABDOMEN: Soft, nontender, nondistended, normoactive bowel sounds, no guarding. EXTREMITIES: 2+ pulses, warm, well-perfused, no edema. NEUROLOGICAL: Cranial nerves II through XII grossly intact. Normal speech, gait not observed. SKIN: Warm, dry, normal turgor, no rashes or lesions noted Laboratory Results - last 24 hr 05/05/19 05/05/19 05/05/19 08:00 08:00 11:29 WBC 5.2 RBC 3.66 L Hgb 11.9 Hct 33.7 L MCV 92.2 MCH 32.5 MCHC 35.2 RDW 12.9 Plt Count 164 MPV 8.7 Absolute Neuts (auto) 3.7 Neutrophils % 71.4 Lymphocytes % 16.7 D Monocytes % 8.3 Eosinophils % 3.3 D Basophils % 0.3 Nucleated RBC % 0 Sodium 135 L Potassium 4.4 Chloride 102 Carbon Dioxide 27 Anion Gap 6 L BUN 18.8 H Creatinine 1.1 Est GFR (CKD-EPI)AfAm 71.57 Est GFR (CKD-EPI)NonAf 61.75 POC Glucometer 173 Random Glucose 164 H Calcium 8.6 Phosphorus 3.0 Magnesium 2.2 Current Medications Atorvastatin Calcium (Lipitor -) 10 mg PO HS [facility] Last Admin: 05/04/19 21:26 Dose: 10 mg Chlorhexidine Gluconate (Hibiclens For Decolonization -) 1 applic TP HS [facility] Last Admin: 05/04/19 21:27 Dose: 1 applic Docusate Sodium (Colace -) 100 mg PO BID [facility] Last Admin: 05/05/19 09:19 Dose: 100 mg Insulin Aspart (Novolog Vial Sliding Scale -) 1 vial SQ ACHS [facility]; Protocol Last Admin: 05/05/19 11:33 Dose: 2 units Insulin Detemir (Levemir Vial) 30 units SQ DAILY@1000 [facility] Last Admin: 05/05/19 09:21 Dose: 30 units Levofloxacin 500 mg/ (Levofloxacin 250 mg) 750 mg PO DAILY@0600 [facility] Last Admin: 05/05/19 06:00 Dose: 750 mg Melatonin (Melatonin) 5 mg PO HS [facility] Last Admin: 05/04/19 21:26 Dose: 5 mg Mupirocin (Bactroban Ointment (For Decolonization) -) 1 applic NS BID [facility] Stop: 05/08/19 21:59 Last Admin: 05/05/19 09:19 Dose: 1 applic Pantoprazole Sodium (Protonix -) 20 mg PO DAILY [facility] Last Admin: 05/05/19 09:19 Dose: 20 mg Ranolazine (Ranexa -) 500 mg PO BID [facility] Last Admin: 05/05/19 09:19 Dose: [address]: Impression: Left tentorial, posterior interhemispheric, left parafalcine, subdural hematoma of increased attenuation is noted. The maximal thickness in the left parafalcine subdural hematoma toward the vertex approximately 5.2 mm versus [address] of the brain May 03, 2019. No evidence of acute subarachnoid hemorrhage, acute intra-axial hematoma. No CT evidence of acute territorial ischemic changes. Carotid doppler : Impression: There is intimal thickening and multiple small and small to moderate-size plaques with calcifications in the right and left common carotid artery. Moderate size calcified plaques at the right common carotid bifurcation/bulb without evidence of hemodynamically significant stenosis. Moderate size plaques with calcifications at the left common carotid bifurcation/bulb without evidence of hemodynamically significant stenosis ASSESSMENT/PLAN: 83 yo M with PMH of RBBB/LAFB (s/p medtronic pacemaker), CAD (s/p 3 stents), HTN , HLD, DM, recent hip fracture and urologic stent placement and removal (04/30) presented s/p syncopal episode at home and admitted to ICU for monitoring of acute subdural hematoma Neuro:Acute Subdural Hematoma, syncope -7mm in size, likely 2/[address] r[address] head shows maturation of hemorrhage -Neurosurg recs appreciated (Dr. Gomez) - no acute neurosurgical intervention indicated -no signs of neuro deficits -elevate head of bed -continue to monitor BP -carotid doppler: no significant stenosis, see above findings -PT eval recommended homecare PT on D/C ID: Urinary Tract Infection: s/p stent placement / valencia insertion and removal -on day 5 of levaquin -UA and urine culture Cardio: CAD(s/p 3 stents) -c/w atorvastatin, ranolazine -Cortheratronic PPM interrogated: AAI 60; -VS 90%; battery life estimated 11 years -Echo: LV EF 55-60%, grade I diastolic dysfxn, Pulm a systolic P at least 31mmHg , dilated IVC Endo: Diabetes Mellitus -c/w levemir 30 AM -c/w BGMs, ISS F/E/N -monitor lytes -diabetic diet Prophylaxis -SCDs Disposition: transfer to medicine Visit type - Emergency Visit Emergency Visit: No - New Patient This patient is new to me today: Yes - Critical Care Critical Care patient: Yes Total Critical Care Time (in minutes): 36 Critical Care Statement: The care of this patient involved high complexity decision making to prevent further life threatening deterioration of the patient 's condition and/or to evaluate & treat vital organ system(s) failure or risk of failure. ATTENDING PHYSICIAN STATEMENT I saw and evaluated the patient. I reviewed the resident's note and discussed the case with the resident. I agree with the resident's findings and plan as documented. SUBJECTIVE: OBJECTIVE: ASSESSMENT AND PLAN:
--- NOTE | 2019-05-05 16:08 | PN ---
Progress Note (short form) - Note Progress Note: s: no chest pain, palps, dizziness, dyspnea. Current Medications Atorvastatin Calcium (Lipitor -) 10 mg PO [facility] Last Admin: 05/04/19 21:26 Dose: 10 mg Chlorhexidine Gluconate (Hibiclens For Decolonization -) 1 applic TP [facility] Last Admin: 05/04/19 21:27 Dose: 1 applic Docusate Sodium (Colace -) 100 mg PO BID [facility] Last Admin: 05/05/19 09:19 Dose: 100 mg Insulin Aspart (Novolog Vial Sliding Scale -) 1 vial SQ ACHS [facility]; Protocol Last Admin: 05/05/19 11:33 Dose: 2 units Insulin Detemir (Levemir Vial) 30 units SQ DAILY@1000 [facility] Last Admin: 05/05/19 09:21 Dose: 30 units Levofloxacin 500 mg/ (Levofloxacin 250 mg) 750 mg PO DAILY@0600 [facility] Last Admin: 05/05/19 06:00 Dose: 750 mg Melatonin (Melatonin) 5 mg PO [facility] Last Admin: 05/04/19 21:26 Dose: 5 mg Mupirocin (Bactroban Ointment (For Decolonization) -) 1 applic NS BID [facility] Stop: 05/08/19 21:59 Last Admin: 05/05/19 09:19 Dose: 1 applic Pantoprazole Sodium (Protonix -) 20 mg PO DAILY [facility] Last Admin: 05/05/19 09:19 Dose: 20 mg Ranolazine (Ranexa -) 500 mg PO BID [facility] Last Admin: 05/05/19 09:19 Dose: 500 mg Vital Signs Period Temp Pulse Resp BP Sys/Angel Pulse Ox Last 24 Hr 64 F-98.7 F 60-78 11-21 104-172/47-93 96 Constitutional: Yes: No Distress, Calm Eyes: Yes: Conjunctiva Clear, EOM Intact HENT: Yes: Atraumatic Respiratory: Yes: CTA Bilaterally Gastrointestinal: Yes: Soft JVD: No Heart Sounds: Yes: S1, S2 (rrr, no MRG) Edema: No Peripheral Pulses WNL: Yes Neurological: Yes: Alert, Oriented no jaundice, diaphoresis not agitated Imaging - Results X-ray: Image Reviewed Cat Scan: Other (left subdural hematoma) EKG: Image Reviewed (NSR, 1st degree AV block, LAFB, RBBB) tele: sinus, occasional [employer] Assessment/Plan IMP: Fall, unwitnessed : likely due to volume depletion, infection and suspected orthostatic BP changes. Doubt arrhythmia. Subdural hematoma Recent UTI on abx H/o CAD w/ remote PCI Carotid disease s/p Medtronic PPM, interrogated this admission, normal device fx Remote hx of GIB due to duodenal ulcer s/p cauterization REC: 1. Management of SDH as per N-surgery 2. Continue holding ASA in setting of SDH, remote hx PCI 3. Cont statin, Ranexa. 4. Orthostatics neg 5. Echo shows nl LV function, grade I diastolic dysfunction, PASP at least 31 mHg, mild AR 6. Carotids with moderate plaque with no hemodynamically significant stenosis 7. Monitoring on tele 8. Continue Rx UTI as per medical team
[2019-05-05 16:27] VITALS: BMI 28.2
[2019-05-05] MEDS: ATORVASTATIN CA 10 MG TABLET (FP) PO SCH (21:48)
[2019-05-05] MEDS: MELATONIN 5 MG TABLETS PO SCH (21:48)
[2019-05-05] MEDS: CHLORHEXIDINE GLUCONATE 4% CLEANSER FOR DECOLONIZATION TP SCH (23:41)
[2019-05-06] MEDS ORDERED: levoFLOXacin 500 MG, levoFLOXacin 250 MG PO SCH (06:00)
[2019-05-06] MEDS: INSULIN SLIDING SCALE (NOVOLOG) 1 VIAL SQ SCH ×2 (06:55→12:49)
[2019-05-06 08:29] LABS: HEMATOCRIT 33.7 % (35.4-49); HEMOGLOBIN 11.9 GM/dL (11.7-16.9); MCH 32.4 pg (25.7-33.7); MCHC 35.2 g/dl (32.0-35.9); MEAN CELL VOLUME 92.1 fl (80-96); MEAN PLT VOLUME 9.1 fl (7.5-11.1); PLATELET COUNT 174 K/MM3 (134-434); RBC 3.66 M/mm3 (4.00-5.60); RDW 12.7 % (11.9-15.9); WHITE BLOOD COUNT 5.8 K/mm3 (4.0-10.0)
[2019-05-06 08:46] LABS: BLOOD UREA NITROGEN 21.1 mg/dL (7-18); CALCIUM 8.6 mg/dL (8.5-10.1); CREATININE 1.2 mg/dL (0.55-1.3); MAGNESIUM 2.3 mg/dL (1.8-2.4); PHOSPHOROUS 3.6 mg/dL (2.5-4.9)
[2019-05-06] MEDS ORDERED: MUPIROCIN 2% TOPICAL OINTMENT FOR DECOLONIZATION NS SCH (10:00)
[2019-05-06] MEDS ORDERED: RANOLAZINE E.R. 500 MG TABLET (FP) PO SCH (10:00)
[2019-05-06] MEDS ORDERED: DOCUSATE SODIUM 100 MG CAPSULE (FP) PO SCH (10:00)
[2019-05-06] MEDS ORDERED: PANTOPRAZOLE 20 MG TABLET (FP) PO SCH (10:00)
[2019-05-06] MEDS ORDERED: INSULIN (LEVEMIR) 100 UNITS/ML UNITS SQ SCH (10:00)
--- NOTE | 2019-05-06 10:54 | DS ---
Physical Examination Vital Signs: Vital Signs Temperature 98.1 F 05/06/19 10:00 Pulse Rate 71 05/06/19 10:00 Respiratory Rate 20 05/06/19 10:00 Blood Pressure 115/62 05/06/19 10:00 O2 Sat by Pulse Oximetry (%) 99 05/05/19 21:00 Findings/Remarks: This is an 83 yo man DM, CAD s/p PCI x3, PPM frequent falls including a R femur fracture in September 2018 who recent urological procedure to remove urolith c/b UTI t/w Levaquin. He was seen in urology clinic yesterday for cath removal. On day of admission patient had a syncopal episode c/b fall. He was taken to the ED for evaluation and on NCHCT was found to have shows traumatic subdural hemorrhage, 6mm. Interrogation of pacemaker without any arrhythmias, pacemaker functioning without issues.Of note in 2005 he suffered a syncopal episode r/t bradycardia. MEdtronic interrogation PPM: no arrhythmias noted, pacemaker functioning without issues. Neurosurgery was consulted and patient was transferred to ICU for continued care and monitoring. Repeat CT head showed decrease in SDH Pt was evaluated by NS, and cleared for discharge Pt will continue to hold ASA Pt walked 200 ft with PT with light guard of 1 person Constitutional: Yes: Well Nourished, No Distress, Calm Cardiovascular: Yes: Regular Rate and Rhythm Respiratory: Yes: Regular Gastrointestinal: Yes: Normal Bowel Sounds, Soft Renal/: Yes: WNL Musculoskeletal: Yes: WNL Extremities: Yes: WNL Edema: No Peripheral Pulses WNL: Yes Neurological: Yes: Alert, Oriented Psychiatric: Yes: Alert, Oriented Labs: CBC, BMP 05/06/19 06:15 05/06/19 06:15 Discharge Summary Problems reviewed: Yes Reason For Visit: ACUTE SUBDURAL HEMATOMA, SYNCOPE Current Active Problems Subdural hematoma, acute (Acute) Syncope (Acute) UTI (urinary tract infection) (Acute) Condition: Stable - Instructions Referrals: Mateo Ohara MD [Staff Physician] - Disposition: VNS/HOME HEALTH CARE - Home Medications Comprehensive Discharge Medication List: Ambulatory Orders Ranolazine [Ranexa -] 500 mg PO BID 07/09/16 Atorvastatin Ca [Lipitor] 10 mg PO DAILY 09/23/17 Docusate Sodium [Colace] 100 cap PO BID 05/01/19 Levofloxacin [Levaquin] 750 mg PO DAILY 5 Days #5 tablet 05/01/19 Insulin Glargine,Hum.rec.anlog [Carmen Kiser U-100] 30 unit SQ DAILY Linagliptin [Tradjenta] 5 mg PO DAILY 05/03/19 Melatonin 5 mg PO DAILY 05/03/19 Omeprazole 20 mg PO DAILY 05/03/19 Prescription Drug Monitoring Program (I-STOP) results: I-STOP reviewed and no issues identified
--- NOTE | 2019-05-06 11:33 | PN ---
Progress Note (short form) - Note Progress Note: Patient is awake, alert and oriented. Ready for discharge from Neurosurgery standpoint.
--- NOTE | 2019-05-06 12:01 | PN ---
Progress Note, QUALITY AUDIT REPRESENTATIVE - Note Progress Note: Selected Entries 05/05/19 05/05/19 05/05/19 02:00 06:00 10:00 Breakfast 50% Temperature 98.7 F 97.7 F 97.8 F 05/05/19 05/05/19 05/05/19 14:00 17:03 21:00 Breakfast Temperature 97.8 F 97.6 F 98 F 05/06/19 05/06/19 05/06/19 02:00 07:00 10:00 Breakfast Temperature 98.7 F 98.1 F 98.1 F Laboratory Tests 05/06/19 06:15 WBC 5.8 Doing well with diet. No in-pt further f/u indicated. Out pt MBS, if intermittent symptoms of Dysphagia persist.
--- NOTE | 2019-05-06 13:57 | PN ---
Progress Note, Physician Chief Complaint: no cp, sob, palps - Current Medication List Current Medications: Active Medications Atorvastatin Calcium (Lipitor -) 10 mg PO HS [facility] Docusate Sodium (Colace -) 100 mg PO BID [facility] Last Admin: 05/06/19 11:15 Dose: 100 mg Insulin Aspart (Novolog Vial Sliding Scale -) 1 vial SQ ACHS [facility]; Protocol Last Admin: 05/06/19 12:49 Dose: 2 units Insulin Detemir (Levemir Vial) 30 units SQ DAILY@1000 [facility] Last Admin: 05/06/19 11:16 Dose: 30 units Levofloxacin 500 mg/ (Levofloxacin 250 mg) 750 mg PO DAILY@0600 [facility] Last Admin: 05/06/19 06:54 Dose: 750 mg Melatonin (Melatonin) 5 mg PO [facility] Pantoprazole Sodium (Protonix -) 20 mg PO DAILY [facility] Last Admin: 05/06/19 11:16 Dose: 20 mg Ranolazine (Ranexa -) 500 mg PO BID [facility] Last Admin: 05/06/19 11:16 Dose: 500 mg - Objective Vital Signs: Vital Signs Temperature 98.1 F 05/06/19 10:00 Pulse Rate 71 05/06/19 10:00 Respiratory Rate 20 05/06/19 10:00 Blood Pressure 115/62 05/06/19 10:00 O2 Sat by Pulse Oximetry (%) 99 05/05/19 21:00 Constitutional: Yes: No Distress, Calm Cardiovascular: Yes: Regular Rate and Rhythm Respiratory: Yes: CTA Bilaterally Gastrointestinal: Yes: Soft Edema: No Neurological: Yes: Alert, Oriented Labs: CBC, BMP 05/06/19 06:15 05/06/19 06:15 INR, PTT INR 0.97 (0.83-1.09) 05/04/19 05:15 Laboratory Tests 05/06/19 05/06/19 06:15 06:15 WBC 5.8 Hgb 11.9 Plt Count 174 Sodium 138 Potassium 5.0 Creatinine 1.2 Magnesium 2.3 Assessment/Plan IMP: Fall, unwitnessed : likely due to volume depletion, infection and suspected orthostatic BP changes. Doubt arrhythmia. Subdural hematoma Recent UTI on abx H/o CAD w/ remote PCI Carotid disease s/p Medtronic PPM, interrogated this admission, normal device fx Remote hx of GIB due to duodenal ulcer s/p cauterization REC: 1. Management of SDH as per N-surgery 2. Continue holding ASA in setting of SDH, remote hx PCI; resume when deemed safe by N-surgery 3. Cont statin, Ranexa. 4. Orthostatics neg 5. Echo shows nl LV function, grade I diastolic dysfunction, PASP at least 31 mHg, mild AR 6. Carotids with moderate plaque with no hemodynamically significant stenosis 7. Rx UTI as per PMD
[2019-05-06 15:45] VITALS: BP 104/64; PULSE 79; TEMP 98.7
[2019-05-06] MEDS ORDERED: CHLORHEXIDINE GLUCONATE 4% CLEANSER FOR DECOLONIZATION TP SCH (22:00)
[2019-05-06] MEDS ORDERED: MELATONIN 5 MG TABLETS PO SCH (22:00)
[2019-05-06] MEDS ORDERED: ATORVASTATIN CA 10 MG TABLET (FP) PO SCH (22:00)
== END 2019-05-06 17:19 | disposition home health service (06) | DRG 83 ==
LOC: JER 13:07 → JICU 14:35 → J5S 05-05 20:09
PROVIDERS: ADMIT Internal Medicine; ATTEND Family Medicine
DX: S06.5X9A Traumatic subdural hemorrhage with loss of consciousness of unspecified duration, initial encounter (principal); I45.2 Bifascicular block; N39.0 Urinary tract infection, site not specified; I25.10 Atherosclerotic heart disease of native coronary artery without angina pectoris; I10 Essential (primary) hypertension; E78.5 Hyperlipidemia, unspecified; E11.9 Type 2 diabetes mellitus without complications; I45.10 Unspecified right bundle-branch block; I95.1 Orthostatic hypotension; K64.8 Other hemorrhoids; I48.91 Unspecified atrial fibrillation; I25.2 Old myocardial infarction; I44.0 Atrioventricular block, first degree; W18.39XA Other fall on same level, initial encounter; Y93.89 Activity, other specified; Z95.0 Presence of cardiac pacemaker; Z95.5 Presence of coronary angioplasty implant and graft
CPT/HCPCS: 36415; 70450-TC; 71045-TC-FY; 72125-TC; 80048; 80053; 81003; 82550; 82962; 83036; 83735; 84100; 84443; 84484; 85025; 85027; 85610; 85730; 87086; 87186; 93005; 93010; 93306-TC; 93880-TC; 97116-GP; 97162-GP; 99283-25; 99284-25; J0131; J7030